=== PATIENT | male | born 1940 | race Caucasian/White ===

== ENCOUNTER → 2017-03-12 | Outpatient (CLI) | payer MEDICARE, OTHER ==
[~2017-03-12] MED LIST: AVOD0.5C PO; DUTA1CAP PO; FLOM5CAP PO; HYDR25TA6 PO; LUTE25CA PO; PRAV20TA2 PO; PRESCAP6 PO
[2017-03-12 15:53] LABS: ANION GAP 8 MEQ/L (8-16); BLOOD UREA NITROGEN 22 MG/DL (7-18); CALCIUM LEVEL 9.8 MG/DL (8.8-10.2); CARBON DIOXIDE LEVEL 28 MEQ/L (21-32); CHLORIDE LEVEL 102 MEQ/L (98-107); CREATININE FOR GFR 1.21 MG/DL (0.70-1.30); GLOMERULAR FILTRATION RATE > 60.0 (>42); GLUCOSE, FASTING 113 MG/DL (83-110); POTASSIUM SERUM 3.9 MEQ/L (3.5-5.1); SODIUM LEVEL 138 MEQ/L (136-145)
--- NOTE | 2017-03-12 19:30 | ECGEPIP ---
Stationary ECG Study [facility] Test Date: 2017-03-12 Pat Name: EVERETT ALDRIDGE Department: Room: - Gender: M Inspector [place]: : 1940 Requested By: Aung Teague Order Number: [id number] Reading MD: Jason Valdez Measurements Intervals Viola Rate: 93 P: -3 TN: 166 QRS: -53 QRSD: 97 T: 29 QT: 323 QTc: 404 Interpretive Statements SINUS RHYTHM INCOMPLETE RIGHT BUNDLE BRANCH BLOCK LEFT ANTERIOR FASCICULAR BLOCK Has developed right ventricular conduction delay and increased R wave in V2 since 11/27/12 Electronically Signed On 03-12-2017 19:30:13 EDT by Jason Valdez
--- NOTE | 2017-04-05 14:22 | REP ---
Chest two views HISTORY: Hypertension Comparison: None The examination is available for review 2:15 p.m. 04/05/2017 Linear densities are present in the left lower lobe consistent with atelectasis or scar. Pleural thickening is present along the right lateral hemithorax. The heart is normal in size. The pulmonary vasculature is normal in appearance. Degenerative change is present in the spine. IMPRESSION: Left lower lobe atelectasis or scar. Signed by Nathan Ruvalcaba MD 04/05/2017 02:15 P
== END ==
LOC: M LAB 15:02
PROVIDERS: ATTEND Ophthalmology
DX: I10 Essential (primary) hypertension (principal)

== ENCOUNTER 2017-04-12 06:50 | Day surgery (SDC) | payer MEDICARE, OTHER ==
--- NOTE | 2017-04-09 13:14 | CR ---
PREOPERATIVE EVALUATION AND CONSULTATION DATE OF CONSULTATION: 03/20/2017 CONSULTING PHYSICIAN: Andrew Davis MD SURGEON: Dr. Jai Chaudhary PLANNED PROCEDURE: Cataract extraction to be done at [facility] on 04/12/2017. CHIEF COMPLAINT: Preoperative evaluation. HISTORY OF PRESENT ILLNESS: This is a very pleasant 76-year-old gentleman who presents today for preoperative evaluation and consultation in the setting of a number of medical issues. Overall, the patient has never had any cardiac issues. He does exert himself over 3 METS on occasion, but is limited by right knee pain. He however does not have any wheezing or any respiratory issues. He denies any chest pain, palpitations or other cardiac issues. He has never had any issues with anesthesia previously. He notes today he feels well overall. He does have some allergy symptoms we discussed. The patient's medical issues all appear to be stable including his blood pressure, lipids, gastroesophageal reflux disease (GERD), benign prostatic hypertrophy (BPH), impaired fasting glucose. He does have some allergies. We discussed some behavioral changes, but none severe. There are no other new issues or concerns. PAST MEDICAL HISTORY: Hypertension. Hyperlipidemia. GERD. BPH. History of squamous cell cancer following with [facility]. Vision changes, follows with Dr. Teague. Fasting glucose intolerance, hemoglobin A1c of 6.0. Allergic rhinitis. Osteoarthritis (OA) of the right knee following with [facility]. Age related hearing loss plus tinnitus, has hearing aids. Chronic intermittent vertigo. PAST SURGICAL HISTORY: [place] [address] [place]. Squamous cell cancer removal from scalp and followup treatments including radiation in 1989 of the left forehead. Also an area on the right leg for squamous cell cancer was noted. Colonoscopy with Dr. Cannon in 2015. MEDICATIONS: - Flomax 0.4 mg two tablets daily - lisinopril 5 mg by mouth daily - hydrochlorothiazide 25 mg by mouth daily - pravastatin 20 mg by mouth daily - omeprazole 20 mg by mouth daily ALLERGIES: No known drug allergies. FAMILY HISTORY: Paternal grandmother at age 93. Paternal grandfather in the flu epidemic of 1819. Maternal grandmother of breast cancer at age 75. Maternal grandfather of an myocardial infarction ([place]) at age 70. He has a sister Delia Diop who has liver problems. Father at age 75 of prostate cancer. Mother of old age. She had Alzheimer's at age 86, macular degeneration. He has no children. SOCIAL HISTORY: The patient lives by himself. He has never been . 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 He has never smoked. He only occasionally drinks any alcohol. He does exercise, but is limited by the osteoarthritis (OA) of his knee. REVIEW OF SYSTEMS: As above, otherwise ROS x 10 is negative. PHYSICAL EXAMINATION: VITAL SIGNS: Blood pressure 118/70, pulse 86, height 5 feet 5 inches, weight 190 pounds. Body mass index (BMI) 31.6, oxygen saturation is 96% on room air. GENERAL: No acute distress. Nontoxic. Alert and oriented times three. Very pleasant. He is quite hard of hearing however. HEENT: Notes pupils are equal, round and reactive to light and accommodation. Extraocular motions intact. No lesions of the lid or conjunctiva. Oral cavity, oropharynx generally benign. Patient has hearing aids in and when removed minimal wax, canal is clear. Tympanic membranes are benign. Oral cavity and oropharynx is benign. NECK: Supple. No lymphadenopathy or thyromegaly. HEART: Regular rate and rhythm. S1 and S2, no murmurs. LUNGS: Clear to auscultation bilaterally. ABDOMEN: Soft, nontender, nondistended. EXTREMITIES: No clubbing, cyanosis, or edema. He does however have an effusion in his right knee. NEUROLOGIC EXAM: Nonfocal with the exception of hearing loss bilaterally. PREOPERATIVE TESTING: Includes a BMP with an elevated blood sugar. Creatinine is 1.21 with a BUN of 22. Electrolytes are normal. GFR considered greater than 60. Chest x-ray showed some atelectasis in the left lower lobe, but no acute findings. An EKG read by Dr. Valdez [facility] notes normal sinus rhythm with incomplete right bundle branch block, some left anterior fascicular block. Apparently, this is a slight change from prior showing a right ventricular conduction delay 11/27/2012. ASSESSMENT/PLAN: 1. Preoperative evaluation and consultation. At this point in time, the patient appears optimized for low risk surgical intervention such as a cataract. He appears to be optimized. He can take all of his medications for the day prior. He has no cardiac, pulmonary or anesthesia issues at this point. Will continue to monitor. 2. Cataract extraction. The patient looks forward to improved vision. 3. Hypertension. Well controlled on present medications. Normal electrolytes. Will continue to monitor. 4. Hyperlipidemia. Doing well on pravastatin and will continue. 5. BPH. Doing well on present dose of Flomax. Will continue. 6. Renal calculi. Patient will stay well hydrated perioperatively. 7. Right knee osteoarthritis (OA). This is significantly limiting the patient' s function. Will continue to follow with orthopedics. 8. Hearing loss. Continues to be significant. 9. Macular degeneration. Patient will continue to follow with Dr. Teague. 10. Malignant neoplasm of the skin. Patient had squamous cell cancer on the scalp and lower leg and will follow with [facility]par[facility]. 11. Ongoing care. Again, patient is optimized for surgical intervention at this point. He is going to continue to followup as scheduled. If there are new issues or concerns sooner he will let us know. ABDOULAYE
[~2017-04-12] VITALS: Ht 162.6 cm; Wt 81.6 kg
[~2017-04-12 06:50] MED LIST changes: +ACETYLCHOLINE OPHTH SOLN 1% 2ML (MIOCHOL-E) As Ordered ONE; +BALANCED SALT IRRIGATION SOLUTION 500ML BAG (FOR OR EYE MACHINE) As Ordered ONE; +CEFUROXIME 1MG/0.1ML INTRACAMERAL INJ As Ordered ONE; +DUOVISC (0.50ML VISCOAT/0.55ML PROVISC) OPHTH KIT As Ordered ONE; +LIDOCAINE 0.75%/EPINEPHRINE 0.025% IN BSS 1ML SYR INTRACAMERAL (OR ONLY) As Ordered ONE; +LIDOCAINE 4% INJ 5 ML AMP As Ordered ONE; +POVIDONE-IODINE 5% OPHTH PREP SOL 30ML As Ordered ONE
[2017-04-12] MEDS ORDERED: TROPICAMIDE 1% OPHTH SOLN 2ML XX ONE (07:00)
[2017-04-12] MEDS ORDERED: PROPARACAINE 0.5% OPHTH SOL 15ML XX ONE (07:00)
[2017-04-12] MEDS ORDERED: PHENYLEPHRINE 2.5% OPHTH SOL 2ML XX ONE (07:00)
[2017-04-12] MEDS ORDERED: OFLOXACIN 0.3 % (OCUFLOX) OPTH SOL 5ML XX ONE (07:00)
[2017-04-12] MEDS ORDERED: LR 1,000 ML IV SCH (07:00)
[2017-04-12] MEDS ORDERED: MIDAZOLAM INJ 2 MG/2 ML VIAL (J2250) As Ordered ONE (07:47)
[2017-04-12] MEDS ORDERED: fentaNYL 100 MCG/2 ML INJECTION (J3010) As Ordered ONE ×2 (07:47→07:48)
[2017-04-12 09:00] VITALS: BP 101/50
--- NOTE | 2017-04-15 08:43 | RO ---
DATE OF PROCEDURE: 04/12/2017 PREOPERATIVE DIAGNOSIS: Visually significant nuclear sclerotic cataract left eye. POSTOPERATIVE DIAGNOSIS: Visually significant nuclear sclerotic cataract left eye. PROCEDURE: Cataract extraction with use of phacoemulsification, and placement of intraocular lens, AU00T0, 20.5 D , left eye. SURGEON: Jai Chaudhary DO DRY STARCH OPERATOR: ANESTHESIA: Local with monitored anesthesia care (MAC). COMPLICATIONS: None. POSTOPERATIVE CONDITION: Stable. INDICATION FOR SURGERY: Blurred vision left eye affecting patient's activities of daily living. DESCRIPTION OF PROCEDURE: The patient was seen in the preoperative area and properly identified. The correct operative eye was identified and marked. Attention was turned to that eye. The patient received topical antibiotics in the preoperative area. The patient then received topical dilating drops consisting of Tropicamide and Phenylephrine. The patient was then transferred to the operating room. The correct side was re-identified. The patient received topical anesthetics and antibiotics on the surface of the eye. The eye was prepped and draped in a sterile fashion. The upper and lower eyelids were isolated with Tegaderm tape, and the lids were held open with an adjustable speculum. Using a sideport blade, a paracentesis incision was made. Intraocular preservative-free lidocaine was then injected into the anterior chamber. Viscoelastic was then injected into the anterior chamber through the paracentesis. Using a 2.6 mm sharp-tipped keratome, the anterior chamber was entered via a temporal clear corneal incision. A continuous curvilinear capsulorrhexis was created with the aid of a 26g cystotome and utrata forceps. Hydrodissection was performed with balanced salt solution (BSS) on a blunt cannula until the nucleus was freely mobile. The crystalline lens was phacoemulsified and aspirated. Additional cohesive viscoelastic was placed into the capsular bag to deepen it. An AU00T0, 20.5 D lens was placed into the capsular bag and confirmed by visualizing the continuous curvilinear capsulorrhexis. Additional irrigation and aspiration was used to remove cortical material and remaining viscoelastic. The clear corneal incision was hydrated with BSS on a blunt cannula. The lens was well positioned. The incisions were then tested for leaks and found to be negative. The eye was then palpated for appropriate pressure and adjusted accordingly with BSS. The eyelid speculum was carefully removed. A shield was placed over the eye. The patient tolerated the procedure well and was discharged to the recovery unit in a stable condition. ABDOULAYE
== END 2017-04-12 09:30 | disposition home or self-care (01) ==
LOC: M SDC 06:50
PROVIDERS: ATTEND Ophthalmology
DX: H25.12 Age-related nuclear cataract, left eye (principal); I10 Essential (primary) hypertension; E78.5 Hyperlipidemia, unspecified; Z92.3 Personal history of irradiation; Z85.828 Personal history of other malignant neoplasm of skin
CPT/HCPCS: 66984; J2250; J3010; V2632

== ENCOUNTER → 2017-04-26 | Day surgery (SDC) | payer MEDICARE, OTHER ==
[~2017-04-26] VITALS: Ht 162.6 cm; Wt 81.6 kg
[~2017-04-26] MED LIST changes: +HEALON DUET (HEALON 10MG/ML 0.55ML & HEALON ENDOCOAT 30MG/ML 0.85ML) As Ordered ONE; -LIDOCAINE 4% INJ 5 ML AMP As Ordered ONE; +LR 1,000 ML IV ONE; +MIDAZOLAM INJ 2 MG/2 ML VIAL (J2250) As Ordered ONE; +OFLOXACIN 0.3 % (OCUFLOX) OPTH SOL 5ML XX ONE; +PHENYLEPHRINE 2.5% OPHTH SOL 2ML XX ONE; +PROPARACAINE 0.5% OPHTH SOL 15ML XX ONE; +TROPICAMIDE 1% OPHTH SOLN 2ML XX ONE; +fentaNYL 100 MCG/2 ML INJECTION (J3010) As Ordered ONE
[2017-04-26 10:27] VITALS: BP 115/63
--- NOTE | 2017-04-27 15:27 | RO ---
DATE OF PROCEDURE: 04/26/2017 PREOPERATIVE DIAGNOSIS: Visually significant nuclear sclerotic cataract right eye. POSTOPERATIVE DIAGNOSIS: Visually significant nuclear sclerotic cataract right eye. PROCEDURE: Cataract extraction with use of phacoemulsification, and placement of intraocular lens, AU00T0, 21.0 D, right eye. SURGEON: Jai Chaudhary DO EXECUTIVE SERVICES ADMINISTRATOR: ANESTHESIA: Local with monitored anesthesia care (MAC). COMPLICATIONS: None. POSTOPERATIVE CONDITION: Stable. INDICATION FOR SURGERY: Blurred vision right eye affecting patient's activities of daily living. DESCRIPTION OF PROCEDURE: The patient was seen in the preoperative area and properly identified. The correct operative eye was identified and marked. Attention was turned to that eye. The patient received topical antibiotics in the preoperative area. The patient then received topical dilating drops consisting of Tropicamide and Phenylephrine. The patient was then transferred to the operating room. The correct side was re-identified. The patient received topical anesthetics and antibiotics on the surface of the eye. The eye was prepped and draped in a sterile fashion. The upper and lower eyelids were isolated with Tegaderm tape, and the lids were held open with an adjustable speculum. Using a sideport blade, a paracentesis incision was made. Intraocular preservative-free lidocaine was then injected into the anterior chamber. Viscoelastic was then injected into the anterior chamber through the paracentesis. Using a 2.6 mm sharp-tipped keratome, the anterior chamber was entered via a temporal clear corneal incision. A continuous curvilinear capsulorrhexis was created with the aid of a 26g cystotome and utrata forceps. Hydrodissection was performed with balanced salt solution (BSS) on a blunt cannula until the nucleus was freely mobile. The crystalline lens was phacoemulsified and aspirated. Additional cohesive viscoelastic was placed into the capsular bag to deepen it. An AU00T0, 21.0 D was placed into the capsular bag and confirmed by visualizing the continuous curvilinear capsulorrhexis. Additional irrigation and aspiration was used to remove cortical material and remaining viscoelastic. The clear corneal incision was hydrated with BSS on a blunt cannula. The lens was well positioned. The incisions were then tested for leaks and found to be negative. The eye was then palpated for appropriate pressure and adjusted accordingly with BSS. The eyelid speculum was carefully removed. A shield was placed over the eye. The patient tolerated the procedure well and was discharged to the recovery unit in a stable condition. ABDOULAYE
== END | disposition home or self-care (01) ==
LOC: M SDC 09:43
PROVIDERS: ATTEND Ophthalmology
DX: H25.11 Age-related nuclear cataract, right eye (principal); I10 Essential (primary) hypertension; E78.5 Hyperlipidemia, unspecified; Z85.828 Personal history of other malignant neoplasm of skin; Z79.899 Other long term (current) drug therapy
CPT/HCPCS: 66984; J2250; J3010; V2632

== ENCOUNTER → 2019-07-22 | Outpatient (REF) | payer MEDICARE, OTHER ==
[~2019-07-22] MED LIST changes: -ACETYLCHOLINE OPHTH SOLN 1% 2ML (MIOCHOL-E) As Ordered ONE; +ASPI81TA26 PO; -BALANCED SALT IRRIGATION SOLUTION 500ML BAG (FOR OR EYE MACHINE) As Ordered ONE; +CBD OIL PO; -CEFUROXIME 1MG/0.1ML INTRACAMERAL INJ As Ordered ONE; -DUOVISC (0.50ML VISCOAT/0.55ML PROVISC) OPHTH KIT As Ordered ONE; +FLOM0.4C39 PO; -FLOM5CAP PO; -HEALON DUET (HEALON 10MG/ML 0.55ML & HEALON ENDOCOAT 30MG/ML 0.85ML) As Ordered ONE; +HYDR25TAB PO; -LIDOCAINE 0.75%/EPINEPHRINE 0.025% IN BSS 1ML SYR INTRACAMERAL (OR ONLY) As Ordered ONE; +LOSA25TA14 PO; -LR 1,000 ML IV ONE; -MIDAZOLAM INJ 2 MG/2 ML VIAL (J2250) As Ordered ONE; +OCUVTAB PO; -OFLOXACIN 0.3 % (OCUFLOX) OPTH SOL 5ML XX ONE; -PHENYLEPHRINE 2.5% OPHTH SOL 2ML XX ONE; -POVIDONE-IODINE 5% OPHTH PREP SOL 30ML As Ordered ONE; -PROPARACAINE 0.5% OPHTH SOL 15ML XX ONE; -TROPICAMIDE 1% OPHTH SOLN 2ML XX ONE; -fentaNYL 100 MCG/2 ML INJECTION (J3010) As Ordered ONE
== END ==
LOC: M LAB REF 17:27
PROVIDERS: ATTEND Family Medicine
DX: H50.05 Alternating esotropia (principal)

== ENCOUNTER 2021-06-14 09:44 | Emergency (ER) | payer MEDICARE, OTHER ==
[~2021-06-14] VITALS: Ht 167.6 cm; Wt 85.1 kg
[~2021-06-14 09:44] MED LIST changes: -DUTA1CAP PO; +DUTA1CAP2 PO; +HYDR-3490 PO; -HYDR25TAB PO
--- OUTSIDE RECORDS SUMMARY | 2021-06-14 12:04 | CCD | Continuity of Care Document ---
Author Author Lab Schedule, Albert Savage Organization Unknown Address [address] [place] [address] Phone Unavailable Care Team Providers Care Dining Room Helper Name Role Phone Andrew Davis MD AUTM [phone] Aung Teague MD AUTM [phone] Baltazar Cannon MD AUTM [phone] Problems Active Problems Provider Date Essential hypertension Andrew Davis M.D. Onset: 7 Hyperlipidemia Andrew Davis M.D. Onset: 09/13/2016 Gastroesophageal reflux disease Andrew Davis M.D. Onset: 09/13/2016 Social History Type Date Description Comments Sex Unknown ETOH Use Denies alcohol use Tobacco Use Start: Unknown Patient has never smoked Allergies, Adverse Reactions, Alerts Description No Known Drug Allergies Medications Active Medications SIG Qnty Indications Ordering Provide r Date Tamsulosin HCL 0.4mg Capsules Take one Capsules By Mouth Every Day 60caps Jennie Smith DO 03/2020 Aspir-[address] 1 by mouth every day Andrew Davis M.D. 07/02/2018 Ocuvite Extra Tablets 1 by mouth every day 30tabs Andrew Davis M.D. 07/02/2018 Icaps Areds Formula Tablets 2 qdpo Andrew Davis M.D. 07/02/2018 Losartan Potassium 25mg Tablets 1 by mouth every day 90tabs I10 Andrew Davis M.D. 07/09/2017 Hydrochlorothiazide 25mg Tablets 1 by mouth every day 90tabs Andrew Davis M.D. 09/13/2016 Pravastatin Sodium 20mg Tablets 1 by mouth every day 90tabs Pelon William MD 09/13/2016 Dutasteride 0.5mg Capsules 1 daily 90caps Andrew Davis M.D. 09/13/2016 Medications Administered in Office Medication SIG Qnty Indications Ordering Provider Date Covid-19 vaccine, Unspecified Inj ection Unknown 10/06/2020 Covid-19 vaccine, Unspecified Inj ection Unknown 09/08/2020 Immunization Adminstration,1 Vaccine/Tox oid Injection Andrew Davis M.D. 019 Immunizations CPT Code Status Date Vaccine Lot # U-Flu Given 04/28/2020 Influenza,Unspecified 01258 Given 08/12/2019 Shingrix Zoster Vaccine (HZV), Recombinant, Subunit, Adjuvanted 62114 Given 07/22/2019 Adacel- Tetanus Diphtheria P ertussis [id number] 25239 Given 06/13/2019 Shingrix Zoster Vaccine (HZV), Recombinant, Subunit, Adjuvanted U-Flu Given 05/13/2019 Influenza,Unspecified U-Pneum Given 05/29/2018 Pneumococcal,Unspecified U-Flu Given 05/29/2018 Influenza,Unspecified 65242 Given 05/14/2015 Prevnar 13 33029 Given 06/17/2013 Pneumovax 23 00468 Refused 07/09/2017 Influenza Vaccin e Quadrivalent Preser/Antibiotic Free Im Use Vital Signs Date Vital Result Comment 05/04/2021 11:41am BP Systolic 110 mmHg BP Diastolic 70 mmHg Heart Rate 84 /min Height 65 inches 5'5" Weight 183.00 lb O2 % BldC Oximetry 96 % BMI (Body Mass Index) 30.4 kg/m2 12/27/2020 12:53pm BP Systolic 100 mmHg BP Diastolic 55 mmHg Heart Rate 101 /min Height 65 inches 5'5" Weight 189.38 lb O2 % BldC Oximetry 93 % RM Air BMI (Body Mass Index) 31.5 kg/m2 Results Test Acquired Date Facility Test Result H/L Range Note Complete Blood Count 05/04/2021 [facility] Automotive Service Director: [place] [address] [phone] WBC 7.8 x10*3/UL 4.1 - 10.9 RBC 5.42 x10*6/UL 4.20 - 6.30 Hemoglobin 16.5 g/dL 12.0 - 18.0 Hematocrit 48.1 % 37.0 - 51.0 MCV 88.8 fL 80.0 - 97.0 MCH 30.4 pg 26.0 - 32.0 MCHC 34.2 g/dL 31.0 - 38.0 RDW 13.4 % 11.6 - 13.7 PLT 191 x10*3/UL 140 - 440 MPV 8.4 FL 7.8 - 11.0 Lymph % 22.4 % 10.0 - 58.5 Mid % 5.8 % 1.7 - 9.3 Neut % 71.8 % 37.0 - 92.0 Lymph # 1.7 x10*3/UL 0.6 - 4.1 Mid # 0.5 x10*3/UL 0.1 - 0.6 Neut # 5.6 x10*3/UL 2.0 - 7.8 A1c 05/03/2021 [facility] , Automotive Service Director: Dr Pelon William [place], [place] [id number] [phone] Hba1c 6.9 % High <5.7 1 Est Avg Glucose 151 mg/dL High 60 - 110 Comprehensive Chem Profile 05/03/2021 [facility], Automotive Service Director: [place] [address] [phone] Glucose 173 mg/dL High 74 - 99 2 BUN 21 mg/dL High 7 - 18 Creatinine 1.2 mg/dL 0.6 - 1.3 Sodium 141 mEq/L 136 - 145 Potassium 3.7 mEq/L 3.5 - 5.1 Chloride 103 mEq/L 98 - 107 Carbon Dioxide 29 mEq/L 21 - 32 Calcium 9.2 mg/dL 8.5 - 10.1 Alk. Phosphatase 58 mg/dL 46 - 116 Total Bilirubin 1.2 mg/dL High 0.2 - 1.0 Ast (Sgot) 13 U/L Low 15 - 37 Alt (SGPT) 27 U/L 12 - 78 Albumin 3.9 g/dL 3.4 - 5.0 Total Protein 7.4 g/dL 6.4 - 8.2 A/G Ratio 1.11 CALC 1.00 - 1.90 GFR 58 mL/min Low >60 GFR >= 60 mL/min >60 3 Laboratory test finding 05/03/2021 [facility] adriana Automotive Service Director: [place] [address] [phone] Thyroid Stimulating Hormone 3.14 uIU/mL 0.3 6 - 3.74 T4 Free 0.93 ng/dL 0.76 - 1.46 Laboratory test finding 05/03/2021 [facility] edith wright Automotive Service Director: [place] [address] [phone] PSA 0.41 ng/mL <4.00 4 Comprehensive Chem Profile 12/22/2020 [facility] Automotive Service Director: [place] [address] [phone] Glucose 131 mg/dL High 74 - 99 5 BUN 24 mg/dL High 7 - 18 Creatinine 1.1 mg/dL 0.6 - 1.3 Sodium 140 mEq/L 136 - 145 Potassium 3.8 mEq/L 3.5 - 5.1 Chloride 103 mEq/L 98 - 107 Carbon Dioxide 28 mEq/L 21 - 32 Calcium 9.2 mg/dL 8.5 - 10.1 Alk. Phosphatase 55 mg/dL 46 - 116 Total Bilirubin 1.2 mg/dL High 0.2 - 1.0 Ast (Sgot) 16 U/L 15 - 37 Alt (SGPT) 28 U/L 12 - 78 Albumin 4.4 g/dL 3.4 - 5.0 Total Protein 7.9 g/dL 6.4 - 8.2 A/G Ratio 1.26 CALC 1.00 - 1.90 GFR >= 60 mL/min >60 GFR >= 60 mL/min >60 6 Lipid Profile 12/22/2020 [facility] , Automotive Service Director: [place] [address] [phone] Cholesterol 154 mg/dL 131 - 200 Triglycerides 143 mg/dL 30 - 150 HDL Cholesterol 47 mg/dL 35 - 60 LDL (Calculated) 78 CALC 50 - 159 A1c 12/22/2020 [facility] , Automotive Service Director: [place] [address] [phone] Hba1c 7.0 % High <5.7 7 Est Avg Glucose 154 mg/dL High 60 - 110 Laboratory test finding 12/22/2020 [facility] edith wright Automotive Service Director: [place] [address] [phone] Thyroid Stimulating Hormone 3.59 uIU/mL 0.3 6 - 3.74 1 Lab Result Notes: Pre-Diabetes 5.7 - 6.4 % Diabetes = or > 6.5% 2 100-125 mg/dL PRE-DIABET ES/FASTING >126 mg/dL DIABETES/FASTING 3 CHRONIC KIDNEY DISEASE STAGI NG PER NKF STAGE I & II GFR >= 60 NORMAL TO MILDLY DECREASED STAGE III GFR 30-59 MODERATELY DECREASED STAGE IV GFR 15-29 SEVERELY DECREASED STAGE V GFR <15 VERY LITTLE GFR LEFT ESRD GFR <15 ON CLEANING CUSTODIAN 4 This assay was performed on the Sunlot EXL using the B- Galactosidase/CPRG methodology and should not be compared interchangeably with other methods. The PSA should not be used alone as a screening test for the presence or absence of malignant disease. 5 100-125 mg/dL PRE-DIABET ES/FASTING >126 mg/dL DIABETES/FASTING 6 CHRONIC KIDNEY DISEASE STAGI NG PER NKF STAGE I & II GFR >= 60 NORMAL TO MILDLY DECREASED STAGE III GFR 30-59 MODERATELY DECREASED STAGE IV GFR 15-29 SEVERELY DECREASED STAGE V GFR <15 VERY LITTLE GFR LEFT ESRD GFR <15 ON CLEANING CUSTODIAN 7 Lab Result Notes: Pre-Diabetes 5.7 - 6.4 % Diabetes = or > 6.5% Procedures Date Code Description Status 04/18/2021 [id number] Diabetic Retinal Eye Exam Comple manuel 12/27/2020 87400 Office/Outpatient Established Mo d MDM 30-39 Min Completed 10/18/2020 [id number] Diabetic Retinal Eye Exam Comple manuel 02/09/2020 [id number] Diabetic Retinal Eye Exam Comple manuel 06/30/2019 823952072 Diabetic Retinal Eye Exam Comple manuel 12/30/2018 888502204 Diabetic Retinal Eye Exam Comple manuel 08/23/2018 62493753 Colonoscopy Completed 06/10/2018 499996931 Diabetic Retinal Eye Exam Comple manuel 04/16/2017 [id number] Diabetic Retinal Eye Exam Comple manuel 04/11/2017 923985862 Diabetic Retinal Eye Exam Comple manuel 04/09/2017 852259690 Diabetic Retinal Eye Exam Comple manuel 03/23/2017 210360709 Diabetic Retinal Eye Exam Comple [facility] 10/27/2014 87510252 Colonoscopy Completed Medical Devices Description No Information Available Encounters Type Date Location Provider Dx Diagnosis Office Visit 12/27/2020 1:30p [facility] Andrew Davis M.D. E78.5 Hyperlipidemia, unspecified E11.9 Type 2 diabetes mellitus wit hout complications E07.9 Disorder of thyroid, unspeci fied N40.0 Benign prostatic hyperplasia without lower urinry tract symp H91.93 Unspecified hearing loss, bi lateral J30.9 Allergic rhinitis, unspecifi ed H35.30 Unspecified macular degenera tion R42 Dizziness and giddiness I10 Essential (primary) hyperten erin Z85.828 Personal history of other ma lignant neoplasm of skin Z86.010 Personal history of colonic polyps Z13.89 Encounter for screening for other disorder Assessments Date Code Description Provider 05/04/2021 R42 Dizziness and giddiness Andrew Davis M.D. 05/04/2021 E11.9 Type 2 diabetes mellitus without complications Andrew Davis M.D. 05/04/2021 E07.9 Disorder of thyroid, unspecified Andrew Davis M.D. 05/04/2021 N40.0 Benign prostatic hyp erplasia without lower urinary tract symptoms Andrew Davis M.D. 05/04/2021 E78.5 Hyperlipidemia, unspecified Gisela Davis M.D. 05/04/2021 H91.93 Unspecified hearing loss, bilate ral Andrew Davis M.D. 05/04/2021 J30.9 Allergic rhinitis, unspecified J abhijeet Davis M.D. 05/04/2021 H35.30 Unspecified macular degeneration Andrew Davis M.D. 05/04/2021 Z87.442 Personal history of urinary calc vikki Andrew Davis M.D. 05/04/2021 M17.11 Unilateral primary osteoarthriti s, right knee Andrew Davis M.D. 05/03/2021 E11.9 Type 2 diabetes mellitus without complications Andrew Davis M.D. 05/03/2021 E11.9 Type 2 diabetes mellitus without complications Lab Schedule 05/03/2021 Z12.5 Encounter for screening for davina gnant neoplasm of prostate Andrew Davis M.D. 05/03/2021 Z12.5 Encounter for screening for davina gnant neoplasm of prostate Lab Schedule 05/03/2021 E07.9 Disorder of thyroid, unspecified Andrew Davis M.D. 05/03/2021 E07.9 Disorder of thyroid, unspecified Lab Schedule 05/03/2021 R42 Dizziness and giddiness Andrew Davis M.D. 05/03/2021 R42 Dizziness and giddiness Lab [place] 12/27/2020 E78.5 Hyperlipidemia, unspecified Gisela Davis M.D. 12/27/2020 E11.9 Type 2 diabetes mellitus without complications Andrew Davis M.D. 12/27/2020 E07.9 Disorder of thyroid, unspecified Andrew Davis M.D. 12/27/2020 N40.0 Benign prostatic hyp erplasia without lower urinary tract symptoms Andrew Davis M.D. 12/27/2020 H91.93 Unspecified hearing loss, bilate ral Andrew Davis M.D. 12/27/2020 J30.9 Allergic rhinitis, unspecified J abhijeet Davis M.D. 12/27/2020 H35.30 Unspecified macular degeneration Andrew Davis M.D. 12/27/2020 R42 Dizziness and giddiness Andrew Davis M.D. 12/27/2020 I10 Essential (primary) hypertension Andrew Davis M.D. 12/27/2020 Z85.828 Personal history of other malign ant neoplasm of skin Andrew Davis M.D. 12/27/2020 Z86.010 Personal history of colonic poly ps Andrew Davis M.D. 12/27/2020 Z13.89 Encounter for screening for othe r disorder Andrew Davis M.D. 12/22/2020 E11.9 Type 2 diabetes mellitus without complications Andrew Davis M.D. 12/22/2020 E11.9 Type 2 diabetes mellitus without complications Lab Schedule 12/22/2020 E78.5 Hyperlipidemia, unspecified Gisela Davis M.D. 12/22/2020 E78.5 Hyperlipidemia, unspecified Lab Schedule 12/22/2020 E07.9 Disorder of thyroid, unspecified Andrew Davis M.D. 12/22/2020 E07.9 Disorder of thyroid, unspecified Lab Schedule Plan of Treatment Future Appointment(s):* 06/16/2021 11:30 am - [facility] 05/04/2021 - Andrew Davis M.D.* R42 Dizziness and giddiness * E11.9 Type 2 diabetes mellitus without complications * E07.9 Disorder of thyroid, unspecified * N40.0 Benign prostatic hyperplasia without lower urinry tract symp * E78.5 Hyperlipidemia, unspecified * H91.93 Unspecified hearing loss, bilateral * J30.9 Allergic rhinitis, unspecified * H35.30 Unspecified macular degeneration * Z87.442 Personal history of urinary calculi * M17.11 Unilateral primary osteoarthritis, right knee * * Comments:* 6 weeks with CBC today but other labs TBD. Functional Status Description No Information Available Mental Status Description No Information Available Referrals Description No Information Available
--- OUTSIDE RECORDS SUMMARY | 2021-06-14 12:04 | CCD | Continuity of Care Document ---
Author Author Albert DAVIS M.D. Organization Unknown Address [address] [address] Phone [phone] Care Team Providers Care Control Board Operator Name Role Phone Andrew Davis MD AUTM [phone] Aung Teague MD AUTM [phone] Baltazar Cnanon MD AUTM [phone] Problems Active Problems Provider Date Essential hypertension [...] Vaccine Lot # U-Flu Given 04/28/2020 Influenza,Unspecified 90762 Given 08/12/2019 Shingrix Zoster Vaccine (HZV), Recombinant, Subunit, Adjuvanted 06622 Given 07/22/2019 Adacel- Tetanus Diphtheria P ertussis [id number] 68571 Given 06/13/2019 Shingrix Zoster Vaccine (HZV), Recombinant, Subunit, Adjuvanted U-Flu Given 05/13/2019 Influenza,Unspecified U-Pneum Given 05/29/2018 Pneumococcal,Unspecified U-Flu Given 05/29/2018 Influenza,Unspecified 79115 Given 05/14/2015 Prevnar 13 58332 Given 06/17/2013 Pneumovax 23 19872 Refused 07/09/2017 Influenza Vaccin e Quadrivalent Preser/Antibiotic [...] H/L Range Note Complete Blood Count 05/04/2021 [facility] edith earl Global Project Manager: Dr Pelon William [place], [place] [id number] [phone] WBC 7.8 x10*3/UL 4.1 - 10.9 RBC [...] 5.6 x10*3/UL 2.0 - 7.8 A1c 05/03/2021 [facility] , Global Project Manager: Dr Pelon William [place], [place] [address] [phone] Hba1c 6.9 % High <5.7 1 Est Avg Glucose 151 mg/dL High 60 - 110 Comprehensive Chem Profile 05/03/2021 [facility], Global Project Manager: Dr Pelon William [place], [place] [id number] [phone] Glucose 173 mg/dL High 74 - 99 [...] mL/min >60 3 Laboratory test finding 05/03/2021 [facility] adriana Global Project Manager: Dr Pelon [place] [id number] [phone] Thyroid Stimulating Hormone 3.14 uIU/mL 0.3 6 - 3.74 T4 Free 0.93 ng/dL 0.76 - 1.46 Laboratory test finding 05/03/2021 [facility] adriana Global Project Manager: Dr Pelon William [place] [id number] [phone] PSA 0.41 ng/mL <4.00 4 Comprehensive Chem Profile 12/22/2020 [facility] kwon Global Project Manager: [place] [address] [phone] Glucose 131 mg/dL High 74 - 99 [...] 60 mL/min >60 6 Lipid Profile 12/22/2020 [facility] , Global Project Manager: [place] [id number] [phone] Cholesterol 154 mg/dL 131 - 200 Triglycerides 143 mg/dL 30 - 150 HDL Cholesterol 47 mg/dL 35 - 60 LDL (Calculated) 78 CALC 50 - 159 A1c 12/22/2020 [facility] , Global Project Manager: [place] [address] [phone] Hba1c 7.0 % High <5.7 7 Est Avg Glucose 154 mg/dL High 60 - 110 Laboratory test finding 12/22/2020 [facility] edith wright Global Project Manager: [place] [address] [phone] Thyroid Stimulating Hormone 3.59 uIU/mL 0.3 6 [...] LITTLE GFR LEFT ESRD GFR <15 ON FRONT MAKER 4 This assay was performed on the Siemens Dimension EXL using the B- Galactosidase/CPRG methodology and [...] LITTLE GFR LEFT ESRD GFR <15 ON FRONT MAKER 7 Lab Result Notes: Pre-Diabetes 5.7 - 6.4 % Diabetes = or > 6.5% Procedures Date Code Description Status 04/18/2021 [id number] Diabetic Retinal Eye Exam Comple manuel 12/27/2020 51024 Office/Outpatient Established Mo d MDM 30-39 Min Completed 10/18/2020 589742789 Diabetic Retinal Eye Exam Comple manuel 02/09/2020 562838925 Diabetic Retinal Eye Exam Comple manuel 06/30/2019 884394345 Diabetic Retinal Eye Exam Comple manuel 12/30/2018 564892201 Diabetic Retinal Eye Exam Comple [facility] 08/23/2018 87954253 Colonoscopy Completed 06/10/2018 431666000 Diabetic Retinal Eye Exam Comple manuel 04/16/2017 077134022 Diabetic Retinal Eye Exam Comple manuel 04/11/2017 643556184 Diabetic Retinal Eye Exam Comple manuel 04/09/2017 981858294 Diabetic Retinal Eye Exam Comple manuel 03/23/2017 465892868 Diabetic Retinal Eye Exam Comple [facility] 10/27/2014 51157950 Colonoscopy Completed Medical Devices Description No Information Available Encounters Type Date Location Provider Dx Diagnosis Office Visit 12/27/2020 1:30p [facility] Andrew Davis M.D. E78.5 Hyperlipidemia, [...] Davis M.D. 12/27/2020 J30.9 Allergic rhinitis, unspecified Avi Davis M.D. 12/27/2020 H35.30 Unspecified macular degeneration [...] 11:30 am - [facility] 05/04/2021 - Andrew Davis M.D.* R42 [...]
--- OUTSIDE RECORDS SUMMARY | 2021-06-14 12:04 | CCD | Continuity of Care Document ---
Author Author Lab Schedule, Albert Savage Organization Unknown Address [address] [place] [address] Phone Unavailable Care Team Providers Care Nautical Instrument Mechanic Name Role Phone Andrew Davis MD AUTM [phone] Aung Teague MD AUTM [phone] Baltazar Cannon MD AUTM [phone] Problems Active Problems Provider Date Essential hypertension [...] Vaccine Lot # U-Flu Given 04/28/2020 Influenza,Unspecified 15944 Given 08/12/2019 Shingrix Zoster Vaccine (HZV), Recombinant, Subunit, Adjuvanted 51629 Given 07/22/2019 Adacel- Tetanus Diphtheria P ertussis (Age64 & Under) [id number] 03936 Given 06/13/2019 Shingrix Zoster Vaccine (HZV), Recombinant, Subunit, Adjuvanted U-Flu Given 05/13/2019 Influenza,Unspecified U-Pneum Given 05/29/2018 Pneumococcal,Unspecified U-Flu Given 05/29/2018 Influenza,Unspecified 21476 Given 05/14/2015 Prevnar 13 76166 Given 06/17/2013 Pneumovax 23 16256 Refused 07/09/2017 Influenza Vaccin e Quadrivalent Preser/Antibiotic Free Im Use Vital Signs Date Vital Result Comment 05/04/2021 11:41am BP Systolic 110 mmHg BP Diastolic 70 mmHg Heart Rate 84 /min Height 65 inches 5'5" Weight 183.00 lb BMI (Body Mass Index) 30.4 kg/m2 12/27/2020 12:53pm BP Systolic 100 mmHg BP Diastolic 55 mmHg Heart Rate 101 /min Height 65 inches 5'5" Weight 189.38 lb O2 % BldC Oximetry 93 % RM Air BMI (Body Mass Index) 31.5 kg/m2 Results Test Acquired Date Facility Test Result H/L Range Note A1c 05/03/2021 [facility] Nail Mill Worker: Dr Pelon William [place], [place] [id number] [phone] Hba1c 6.9 % High <5.7 1 Est Avg Glucose 151 mg/dL High 60 - 110 Comprehensive Chem Profile 05/03/2021 [facility] Nail Mill Worker: [place] [address] [phone] Glucose 173 mg/dL High 74 - 99 [...] mL/min >60 3 Laboratory test finding 05/03/2021 [facility] adriana Nail Mill Worker: [place] [address] [phone] Thyroid Stimulating Hormone 3.14 uIU/mL 0.3 6 - 3.74 T4 Free 0.93 ng/dL 0.76 - 1.46 Laboratory test finding 05/03/2021 [facility] adriana Nail Mill Worker: [place] [address] [phone] PSA 0.41 ng/mL <4.00 4 Comprehensive Chem Profile 12/22/2020 [facility], Nail Mill Worker: [place] [address] [phone] Glucose 131 mg/dL High 74 - 99 [...] 60 mL/min >60 6 Lipid Profile 12/22/2020 [facility] , Nail Mill Worker: Dr Pelon William [place], [place] [id number] [phone] Cholesterol 154 mg/dL 131 - 200 Triglycerides 143 mg/dL 30 - 150 HDL Cholesterol 47 mg/dL 35 - 60 LDL (Calculated) 78 CALC 50 - 159 A1c 12/22/2020 [facility] Nail Mill Worker: [place] [address] [phone] Hba1c 7.0 % High <5.7 7 Est Avg Glucose 154 mg/dL High 60 - 110 Laboratory test finding 12/22/2020 [facility], Nail Mill Worker: [place] [address] [phone] Thyroid Stimulating Hormone 3.59 uIU/mL 0.3 6 [...] LITTLE GFR LEFT ESRD GFR <15 ON ALL TERRAIN VEHICLE RACER 4 This assay was performed on the Siemens Flutter EXL using the B- Galactosidase/CPRG methodology and [...] LITTLE GFR LEFT ESRD GFR <15 ON ALL TERRAIN VEHICLE RACER 7 Lab Result Notes: Pre-Diabetes 5.7 - 6.4 % Diabetes = or > 6.5% Procedures Date Code Description Status 04/18/2021 [id number] Diabetic Retinal Eye Exam Comple manuel 12/27/2020 54471 Office/Outpatient Established Mo d MDM 30-39 Min Completed 10/18/2020 151839971 Diabetic Retinal Eye Exam Comple manuel 02/09/2020 723330977 Diabetic Retinal Eye Exam Comple manuel 06/30/2019 676397925 Diabetic Retinal Eye Exam Comple manuel 12/30/2018 585175603 Diabetic Retinal Eye Exam Comple manuel 08/23/2018 16329024 Colonoscopy Completed 06/10/2018 888585657 Diabetic Retinal Eye Exam Comple manuel 04/16/2017 081928841 Diabetic Retinal Eye Exam Comple manuel 04/11/2017 538838356 Diabetic Retinal Eye Exam Comple manuel 04/09/2017 802728548 Diabetic Retinal Eye Exam Comple manuel 03/23/2017 400476190 Diabetic Retinal Eye Exam Comple manuel 10/27/2014 96268560 Colonoscopy Completed Medical Devices Description No Information Available Encounters Type Date Location Provider Dx Diagnosis Office Visit 12/27/2020 1:30p [facility] Andrew Davis M.D. E78.5 Hyperlipidemia, [...] other disorder Assessments Date Code Description Provider 12/27/2020 E78.5 Hyperlipidemia, unspecified Gisela Davis M.D. [...] thyroid, unspecified Lab Schedule Plan of Treatment No Information Available Functional Status Description No Information Available Mental Status Description No Information Available Referrals Description No Information Available
--- OUTSIDE RECORDS SUMMARY | 2021-06-14 12:04 | CCD | Continuity of Care Document ---
Author Author Albert DAVIS M.D. Organization Unknown Address [address] [address] Phone [phone] Care Team Providers Care Executive Coach Name Role Phone Andrew Davis MD AUTM [phone] Aung Teague MD AUTM [phone] Baltazar Cannon MD AUTM [phone] Problems Active Problems Provider Date Essential hypertension [...] r Date Tamsulosin HCL 0.4mg Capsules Take Two Capsules By Mouth Every Day 60caps Jennie [...] Vaccine Lot # U-Flu Given 04/28/2020 Influenza,Unspecified 42406 Given 08/12/2019 Shingrix Zoster Vaccine (HZV), Recombinant, Subunit, Adjuvanted 87512 Given 07/22/2019 Adacel- Tetanus Diphtheria P ertussis (Age64 & Under) [id number] Given 06/13/2019 Shingrix Zoster Vaccine (HZV), Recombinant, Subunit, Adjuvanted U-Flu Given 05/13/2019 Influenza,Unspecified U-Pneum Given 05/29/2018 Pneumococcal,Unspecified U-Flu Given 05/29/2018 Influenza,Unspecified 49337 Given 05/14/2015 Prevnar 13 69512 Given 06/17/2013 Pneumovax 23 40042 Refused 07/09/2017 Influenza Vaccin e Quadrivalent Preser/Antibiotic [...] Test Result H/L Range Note A1c 05/03/2021 [facility] Cue Selector: Dr Pelon William [place] [id number] [phone] Hba1c 6.9 % High <5.7 1 Est Avg Glucose 151 mg/dL High 60 - 110 Comprehensive Chem Profile 05/03/2021 [facility] Cue Selector: [place] [address] [phone] Glucose 173 mg/dL High 74 - 99 [...] mL/min >60 3 Laboratory test finding 05/03/2021 [facility] Cue Selector: [place] [address] [phone] Thyroid Stimulating Hormone 3.14 uIU/mL 0.3 6 - 3.74 T4 Free 0.93 ng/dL 0.76 - 1.46 Laboratory test finding 05/03/2021 [facility] Cue Selector: [place] [address] [phone] PSA 0.41 ng/mL <4.00 4 Comprehensive Chem Profile 12/22/2020 [facility] Cue Selector: [place] [address] [phone] Glucose 131 mg/dL High 74 - 99 [...] 60 mL/min >60 6 Lipid Profile 12/22/2020 [facility] , Cue Selector: [place] [address] [phone] Cholesterol 154 mg/dL 131 - 200 Triglycerides 143 mg/dL 30 - 150 HDL Cholesterol 47 mg/dL 35 - 60 LDL (Calculated) 78 CALC 50 - 159 A1c 12/22/2020 [email or web address] , Cue Selector: [place] [address] [phone] Hba1c 7.0 % High <5.7 7 Est Avg Glucose 154 mg/dL High 60 - 110 Laboratory test finding 12/22/2020 [facility], Cue Selector: [place] [address] [phone] Thyroid Stimulating Hormone 3.59 uIU/mL 0.3 6 [...] LITTLE GFR LEFT ESRD GFR <15 ON DIESEL MAINTENANCE ELECTRICIAN 4 This assay was performed on the [employer] EXL using the B- Galactosidase/CPRG methodology and [...] LITTLE GFR LEFT ESRD GFR <15 ON DIESEL MAINTENANCE ELECTRICIAN 7 Lab Result Notes: Pre-Diabetes 5.7 - 6.4 % Diabetes = or > 6.5% Procedures Date Code Description Status 04/18/2021 [id number] Diabetic Retinal Eye Exam Comple manuel 12/27/2020 90420 Office/Outpatient Established Mo d MDM 30-39 Min Completed 10/18/2020 [id number] Diabetic Retinal Eye Exam Comple manuel 02/09/2020 [id number] Diabetic Retinal Eye Exam Comple manuel 06/30/2019 [id number] Diabetic Retinal Eye Exam Comple manuel 12/30/2018 [id number] Diabetic Retinal Eye Exam Comple manuel 08/23/2018 06123451 Colonoscopy Completed 06/10/2018 [id number] Diabetic Retinal Eye Exam Comple manuel 04/16/2017 [id number] Diabetic Retinal Eye Exam Comple manuel 04/11/2017 [id number] Diabetic Retinal Eye Exam Comple manuel 04/09/2017 [id number] Diabetic Retinal Eye Exam Comple manuel 03/23/2017 [id number] Diabetic Retinal Eye Exam Comple manuel 10/27/2014 [id number] Colonoscopy Completed Medical Devices Description No Information Available Encounters Type Date Location Provider Dx Diagnosis Office Visit 12/27/2020 1:30p [facility] Andrew Davis M.D. E78.5 Hyperlipidemia, [...] thyroid, unspecified Lab Schedule Plan of Treatment 12/27/2020 - Andrew Davis M.D.* E78.5 Hyperlipidemia, unspecified * E11.9 Type 2 diabetes mellitus without complications * E07.9 Disorder of thyroid, unspecified * N40.0 Benign prostatic hyperplasia without lower urinry tract symp * H91.93 Unspecified hearing loss, bilateral * J30.9 Allergic rhinitis, unspecified * H35.30 Unspecified macular degeneration * R42 Dizziness and giddiness * I10 Essential (primary) hypertension * Z85.828 Personal history of other malignant neoplasm of skin * Z86.010 Personal history of colonic polyps * Z13.89 Encounter for screening for other disorder * * Comments:* 1. Hyperlipidemia: Doing well on pravastatin, will continue and monitor.2. Type 2 diabetes mellitus without complications: Uncontrolled with HgbA1c of 7.0, which is an increase from prior at 6.6. His FIFI in May 2020 was normal. We discussed importance of maintaining blood sugar and he understands this. He will continue to work on his diet more carefully and will see in 4 months to make sure his diabetes is under good control.3. Thyroid disorder: Normal TSH, although slightly increased from prior. We will continue to monitor.4. Benign prostatic hyperplasia without lower urinry tract symp: Good results on current regimen, although he will discontinue second dose of tamsulosin due to his dizziness.5. Hearing loss, bilateral: He is wearing hearing aids, but it is still a significant barrier. We discussed his recent test results at [facility]. We will continue to work on optimizing communication. 6. Allergic rhinitis: Mild, intermittent, does not use medications.7. Macular degeneration: Stable and is on AREDS 1 tablet p.o. twice a day. Following up with Dr. Ramirez [facility] and will continue appropriate follow up.8. Personal history of other malignant neoplasm of skin: No new concerns with history of squamous cell cancer. He will follow up with [facility] appropriately. 9. Personal history of colonic polyps: Next colonoscopy is due in about 1 year. Presence of 2 p olyps on last colonoscopy via Dr. Cannon on 08/23/2018 with pathology showed fragments of tubular adenoma. He is waiting for a call from them and will follow up appropriately.10. Dizziness and giddiness: Possible etiology discussed. He is dehydrated and is encouraged to stay well hydrated. He will stop taking tamsulosin as discussed above and will update me in 1 week about his dizziness and if does not improve we will decrease meds.11. Hypertension: Lower than expected but we discussed in detail, will monitor off 2nd dose of tamsulosin and with better hydration.Ongoing cares: He is encouraged to avoid ibuprofen, Aleve and other nephrotoxic drugs. I am going to see him again in 4 months with CMP, lipids, TSH HgbA1c, FT4 and PSA. If he has new problems or issues sooner he will let us know. Functional Status Description No Information Available Mental Status Description No Information Available Referrals Description No Information Available
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
--- OUTSIDE RECORDS SUMMARY | 2021-06-14 12:04 | CCD | Continuity of Care Document ---
Author Author Albert Cesar Organization Unknown Address [address] [address] Phone [phone] Care Team Providers Care Bridge Repairer Name Role Phone Andrew Davis MD AUTM [phone] Aung Teague MD AUTM [phone] Baltazar Cannon MD AUTM [phone] Problems Active Problems Provider Date Essential hypertension [...] Tablets 1 by mouth every day 90tabs I12.9 Andrew Davis M.D. 07/09/2017 Hydrochlorothiazide 25mg Tablets [...] Vaccine Lot # U-Flu Given 04/28/2020 Influenza,Unspecified 59568 Given 08/12/2019 Shingrix Zoster Vaccine (HZV), Recombinant, Subunit, Adjuvanted 59112 Given 07/22/2019 Adacel- Tetanus Diphtheria P ertussis [id number] 53094 Given 06/13/2019 Shingrix Zoster Vaccine (HZV), Recombinant, Subunit, Adjuvanted U-Flu Given 05/13/2019 Influenza,Unspecified U-Pneum Given 05/29/2018 Pneumococcal,Unspecified U-Flu Given 05/29/2018 Influenza,Unspecified 39196 Given 05/14/2015 Prevnar 13 Given 06/17/2013 Pneumovax 23 79712 Refused 07/09/2017 Influenza Vaccin e Quadrivalent Preser/Antibiotic [...] H/L Range Note Basic Metabolic Panel 05/27/2021 [facility] Metalsmith Helper: Dr Pelon William [place], [place] [id number] [phone] Glucose 115 mg/dL High 74 - 99 [...] mL/min >60 2 Complete Blood Count 05/04/2021 [facility] Metalsmith Helper: [place] [address] [phone] WBC 7.8 x10*3/UL 4.1 - 10.9 RBC [...] 5.6 x10*3/UL 2.0 - 7.8 A1c 05/03/2021 [facility] Metalsmith Helper: [place] [address] [phone] Hba1c 6.9 % High <5.7 3 Est Avg Glucose 151 mg/dL High 60 - 110 Comprehensive Chem Profile 05/03/2021 [facility] Metalsmith Helper: [place] [address] [phone] Glucose 173 mg/dL High 74 - 99 [...] mL/min >60 5 Laboratory test finding 05/03/2021 [facility] Metalsmith Helper: [place] [address] [phone] Thyroid Stimulating Hormone 3.14 uIU/mL 0.3 6 - 3.74 T4 Free 0.93 ng/dL 0.76 - 1.46 Laboratory test finding 05/03/2021 [facility] Metalsmith Helper: [place] [address] [phone] PSA 0.41 ng/mL <4.00 6 Comprehensive Chem Profile 12/22/2020 [facility] Metalsmith Helper: [place] [address] [phone] Glucose 131 mg/dL High 74 - 99 [...] 60 mL/min >60 8 Lipid Profile 12/22/2020 [facility] , Metalsmith Helper: Dr Pelon William [place], [place] [id number] [phone] Cholesterol 154 mg/dL 131 - 200 Triglycerides 143 mg/dL 30 - 150 HDL Cholesterol 47 mg/dL 35 - 60 LDL (Calculated) 78 CALC 50 - 159 A1c 12/22/2020 [facility] , Metalsmith Helper: [place] [address] [phone] Hba1c 7.0 % High <5.7 9 Est Avg Glucose 154 mg/dL High 60 - 110 Laboratory test finding 12/22/2020 [facility], Metalsmith Helper: [place] [address] [phone] Thyroid Stimulating Hormone 3.59 uIU/mL 0.3 6 - 3.74 1 100-125 mg/dL PRE-DIABET ES/FASTING >126 mg/dL DIABETES/FASTING 2 CHRONIC KIDNEY DISEASE STAGI NG PER NKF STAGE I & II GFR >= 60 NORMAL TO MILDLY DECREASED STAGE III GFR 30-59 MODERATELY DECREASED STAGE IV GFR 15-29 SEVERELY DECREASED STAGE V GFR <15 VERY LITTLE GFR LEFT ESRD GFR <15 ON FINGER BUFF SEWER 3 Lab Result Notes: Pre-Diabetes 5.7 - [...] LITTLE GFR LEFT ESRD GFR <15 ON FINGER BUFF SEWER 6 This assay was performed on the [employer] EXL using the B- Galactosidase/CPRG methodology and [...] LITTLE GFR LEFT ESRD GFR <15 ON FINGER BUFF SEWER 9 Lab Result Notes: Pre-Diabetes 5.7 - 6.4 % Diabetes = or > 6.5% Procedures Date Code Description Status 05/27/2021 54059 Impacted Cerumen Irrigat/Lavage Completed 05/27/2021 04875 Office/Outpatient Established Lo w MDM 20-29 Min Completed 05/04/2021 59154 Office/Outpatient Established Mo d MDM 30-39 Min Completed 05/04/2021 41334 EKG/Interpretation & Report Comp leted 04/18/2021 [id number] Diabetic Retinal Eye Exam Comple manuel 12/27/2020 66085 Office/Outpatient Established Mo d MDM 30-39 Min Completed 10/18/2020 [id number] Diabetic Retinal Eye Exam Comple manuel 02/09/2020 [id number] Diabetic Retinal Eye Exam Comple manuel 06/30/2019 [id number] Diabetic Retinal Eye Exam Comple manuel 12/30/2018 794448107 Diabetic Retinal Eye Exam Comple manuel 08/23/2018 [id number] Colonoscopy Completed 06/10/2018 812160194 Diabetic Retinal Eye Exam Comple manuel 04/16/2017 [id number] Diabetic Retinal Eye Exam Comple maneul 04/11/2017 597518562 Diabetic Retinal Eye Exam Comple manuel 04/09/2017 813973070 Diabetic Retinal Eye Exam Comple manuel 03/23/2017 254829804 Diabetic Retinal Eye Exam Comple manuel 10/27/2014 [id number] Colonoscopy Completed Medical Devices Description No Information Available Encounters Type Date Location Provider Dx Diagnosis Office Visit 05/27/2021 3:00p [facility] MELA Cesar R42 Dizziness and giddiness I12.9 Hypertensive chronic kidney disease w stg 1-4/unsp chr kdny N18.31 Chronic kidney disease, stag e 3a H61.23 Impacted cerumen, bilateral R35.1 Nocturia R41.81 Age-related cognitive declin e Office Visit 05/04/2021 11:30a [facility] Andrew Davis M.D. E11.9 Type 2 diabetes mellitus without complic ations R42 Dizziness and giddiness E07.9 Disorder of thyroid, unspeci fied E11.9 Type 2 diabetes mellitus wit hout complications N40.0 Benign prostatic hyperplasia without lower urinry tract symp E07.9 Disorder of thyroid, unspeci fied E78.5 Hyperlipidemia, unspecified N40.0 Benign prostatic hyperplasia without lower urinry tract symp H91.93 Unspecified hearing loss, bi lateral E78.5 Hyperlipidemia, unspecified J30.9 Allergic rhinitis, unspecifi ed H91.93 Unspecified hearing loss, bi lateral H35.30 Unspecified macular degenera tion J30.9 Allergic rhinitis, unspecifi ed Z87.442 Personal history of urinary calculi H35.30 Unspecified macular degenera tion M17.11 Unilateral primary osteoarth ritis, right knee Z87.442 Personal history of urinary calculi M17.11 Unilateral primary osteoarth ritis, right knee Office Visit 12/27/2020 1:30p [facility], Sheila Davis M.D. E78.5 Hyperlipidemia, unspecified E11.9 Type [...] Provider 05/27/2021 R42 Dizziness and giddiness Taty Carballo [facility] 05/27/2021 I12.9 Hypertensive chronic kidney disease with stage 1 through stage 4 chronic kidney disease, or unspecified chronic kidney disease MELA Cesar 05/27/2021 N18.31 Chronic kidney disease, stage 3a MELA Cesar 05/27/2021 H61.23 Impacted cerumen, bilateral MELA Cesar 05/27/2021 R35.1 Nocturia MELA Cesar 05/27/2021 R41.81 Age-related cognitive decline An MELA Pereira 05/04/2021 E11.9 Type 2 diabetes mellitus without complications Andrew Davis M.D. 05/04/2021 R42 Dizziness and giddiness Andrew Davis M.D. 05/04/2021 E07.9 Disorder of thyroid, unspecified Andrew Davis M.D. 05/04/2021 E11.9 Type 2 diabetes mellitus without complications Andrew Davis M.D. 05/04/2021 N40.0 Benign prostatic hyp erplasia without lower urinary tract symptoms Andrew Davis M.D. 05/04/2021 E07.9 Disorder of thyroid, unspecified Andrew Davis M.D. 05/04/2021 E78.5 Hyperlipidemia, unspecified Gisela Davis M.D. 05/04/2021 N40.0 Benign prostatic hyp erplasia without lower urinary tract symptoms Andrew Davis M.D. 05/04/2021 H91.93 Unspecified hearing loss, bilate ral Andrew Davis M.D. 05/04/2021 E78.5 Hyperlipidemia, unspecified Gisela Davis M.D. 05/04/2021 J30.9 Allergic rhinitis, unspecified Avi Davis M.D. 05/04/2021 H91.93 Unspecified hearing loss, bilate ral Andrew Davis M.D. 05/04/2021 H35.30 Unspecified macular degeneration Andrew Davis M.D. 05/04/2021 J30.9 Allergic rhinitis, unspecified J abhijeet Davis M.D. 05/04/2021 Z87.442 Personal history of urinary calc vikki Andrew Davis M.D. 05/04/2021 H35.30 Unspecified macular degeneration Andrew Davis M.D. 05/04/2021 M17.11 Unilateral primary osteoarthriti s, right knee Andrew Davis M.D. 05/04/2021 Z87.442 Personal history [...] 11:30 am - Andrew Davis M.D. at [facility] 12/27/2020 - Andrew Davis M.D.* E78.5 Hyperlipidemia, [...] We discussed his recent test results at [facility]. We will continue to work on [...] CONSULT FOR DIZZINESS Patient Notified 06/30/20 21 [address] [place] [address] [phone]
--- OUTSIDE RECORDS SUMMARY | 2021-06-14 12:04 | CCD | Continuity of Care Document ---
Author Author Albert Cesar Organization Unknown Address [address] [address] Phone [phone] Care Team Providers Care Vibration Analyst Name Role Phone Andrew Davis MD AUTM [phone] Aung Teague MD AUTM [phone] Baltazar Cannon MD AUTM [phone] Problems Active Problems Provider Date Essential hypertension [...] Vaccine Lot # U-Flu Given 04/28/2020 Influenza,Unspecified 98026 Given 08/12/2019 Shingrix Zoster Vaccine (HZV), Recombinant, Subunit, Adjuvanted 45007 Given 07/22/2019 Adacel- Tetanus Diphtheria P ertussis [id number] 26517 Given 06/13/2019 Shingrix Zoster Vaccine (HZV), Recombinant, Subunit, Adjuvanted U-Flu Given 05/13/2019 Influenza,Unspecified U-Pneum Given 05/29/2018 Pneumococcal,Unspecified U-Flu Given 05/29/2018 Influenza,Unspecified 61327 Given 05/14/2015 Prevnar 13 68959 Given 06/17/2013 Pneumovax 23 46368 Refused 07/09/2017 Influenza Vaccin e Quadrivalent Preser/Antibiotic [...] H/L Range Note Basic Metabolic Panel 05/27/2021 [facility] Gill Box Fixer: Dr Pelon William [place] [id number] [phone] Glucose 115 mg/dL High 74 - 99 [...] mL/min >60 2 Complete Blood Count 05/04/2021 [facility] Gill Box Fixer: [place] [address] [phone] WBC 7.8 x10*3/UL 4.1 - 10.9 RBC [...] 5.6 x10*3/UL 2.0 - 7.8 A1c 05/03/2021 [facility] , Gill Box Fixer: [place] [address] [phone] Hba1c 6.9 % High <5.7 3 Est Avg Glucose 151 mg/dL High 60 - 110 Comprehensive Chem Profile 05/03/2021 [facility] Gill Box Fixer: [place] [address] [phone] Glucose 173 mg/dL High 74 - 99 [...] mL/min >60 5 Laboratory test finding 05/03/2021 [facility] Gill Box Fixer: [place] [address] [phone] Thyroid Stimulating Hormone 3.14 uIU/mL 0.3 6 - 3.74 T4 Free 0.93 ng/dL 0.76 - 1.46 Laboratory test finding 05/03/2021 [facility] Gill Box Fixer: [place] [address] [phone] PSA 0.41 ng/mL <4.00 6 Comprehensive Chem Profile 12/22/2020 [facility] Gill Box Fixer: [place] [address] [phone] Glucose 131 mg/dL High 74 - 99 [...] 60 mL/min >60 8 Lipid Profile 12/22/2020 [facility] , Gill Box Fixer: Dr Pelon Willima [place], [place] [id number] [phone] Cholesterol 154 mg/dL 131 - 200 Triglycerides 143 mg/dL 30 - 150 HDL Cholesterol 47 mg/dL 35 - 60 LDL (Calculated) 78 CALC 50 - 159 A1c 12/22/2020 [facility] Gill Box Fixer: [place] [address] [phone] Hba1c 7.0 % High <5.7 9 Est Avg Glucose 154 mg/dL High 60 - 110 Laboratory test finding 12/22/2020 [facility], Gill Box Fixer: [place] [address] [phone] Thyroid Stimulating Hormone 3.59 uIU/mL 0.3 6 - 3.74 1 100-125 mg/dL PRE-DIABET ES/FASTING >126 mg/dL DIABETES/FASTING 2 CHRONIC KIDNEY DISEASE STAGI NG PER NKF STAGE I & II GFR >= 60 NORMAL TO MILDLY DECREASED STAGE III GFR 30-59 MODERATELY DECREASED STAGE IV GFR 15-29 SEVERELY DECREASED STAGE V GFR <15 VERY LITTLE GFR LEFT ESRD GFR <15 ON CASE MANAGER 3 Lab Result Notes: Pre-Diabetes 5.7 - [...] LITTLE GFR LEFT ESRD GFR <15 ON CASE MANAGER 6 This assay was performed on the [employer] EXL using the B- Galactosidase/CPRG methodology and [...] LITTLE GFR LEFT ESRD GFR <15 ON CASE MANAGER 9 Lab Result Notes: Pre-Diabetes 5.7 - 6.4 % Diabetes = or > 6.5% Procedures Date Code Description Status 05/27/2021 02218 Office/Outpatient Established Lo w MDM 20-29 Min Completed 04/18/2021 [id number] Diabetic Retinal Eye Exam Comple manuel 12/27/2020 04052 Office/Outpatient Established Mo d MDM 30-39 Min Completed 10/18/2020 413091747 Diabetic Retinal Eye Exam Comple manuel 02/09/2020 [id number] Diabetic Retinal Eye Exam Comple manuel 06/30/2019 148561181 Diabetic Retinal Eye Exam Comple manuel 12/30/2018 308793255 Diabetic Retinal Eye Exam Comple manuel 08/23/2018 [id number] Colonoscopy Completed 06/10/2018 284535152 Diabetic Retinal Eye Exam Comple manuel 04/16/2017 125060956 Diabetic Retinal Eye Exam Comple manuel 04/11/2017 866850206 Diabetic Retinal Eye Exam Comple manuel 04/09/2017 553153329 Diabetic Retinal Eye Exam Comple manuel 03/23/2017 339016933 Diabetic Retinal Eye Exam Comple manuel 10/27/2014 76081470 Colonoscopy Completed Medical Devices Description No Information Available Encounters Type Date Location Provider Dx Diagnosis Office Visit 05/27/2021 3:00p [facility] Taty Blount , FRONT DESK WORKER R42 Dizziness and giddiness I10 Essential (primary) hyperten erin H61.23 Impacted cerumen, bilateral R35.1 Nocturia R41.81 Age-related cognitive declin e Office Visit 12/27/2020 1:30p [facility] Andrew Davis M.D. E78.5 Hyperlipidemia, [...] R42 Dizziness and giddiness Taty Rivas atiya, [facility] 05/27/2021 I10 Essential (primary) hypertension Taty Blount, [facility] 05/27/2021 H61.23 Impacted cerumen, bilateral Taty Blount, [facility] 05/27/2021 R35.1 Nocturia Taty Blount, [facility] 05/27/2021 R41.81 Age-related cognitive decline An charlee Blount, [facility] 05/04/2021 R42 Dizziness and giddiness Andrew Davis [...] 12/22/2020 E07.9 Disorder of thyroid, unspecified Andrew aDvis M.D. 12/22/2020 E07.9 Disorder of thyroid, unspecified Lab Schedule Plan of Treatment Future Appointment(s):* 06/16/2021 11:30 am - Andrew Davis M.D. at [facility] 05/27/2021 - MELA Cesar* R42 [...] FOR DIZZINESS Patient Notified 06/30/20 21 [address] [place] [id number] [phone]
--- OUTSIDE RECORDS SUMMARY | 2021-06-14 12:04 | CCD | Continuity of Care Document ---
Author Author Lab Schedule, Albert Savage Organization Unknown Address [address] [place] [address] Phone Unavailable Care Team Providers Care Machine Lead Burner Name Role Phone Andrew Davis MD AUTM [phone] Aung Teague MD AUTM [phone] Baltazar Cannon MD AUTM [phone] Problems Active Problems Provider Date Essential hypertension [...] Vaccine Lot # U-Flu Given 04/28/2020 Influenza,Unspecified 87187 Given 08/12/2019 Shingrix Zoster Vaccine (HZV), Recombinant, Subunit, Adjuvanted 93188 Given 07/22/2019 Adacel- Tetanus Diphtheria P ertussis (Age64 & Under) [id number] 98014 Given 06/13/2019 Shingrix Zoster Vaccine (HZV), Recombinant, Subunit, Adjuvanted U-Flu Given 05/13/2019 Influenza,Unspecified U-Pneum Given 05/29/2018 Pneumococcal,Unspecified U-Flu Given 05/29/2018 Influenza,Unspecified 33959 Given 05/14/2015 Prevnar 13 51846 Given 06/17/2013 Pneumovax 23 04946 Refused 07/09/2017 Influenza Vaccin e Quadrivalent Preser/Antibiotic [...] Test Result H/L Range Note A1c 05/03/2021 [facility] Annual Giving Officer: Dr Pelon William [place], [place] [id number] [phone] Hba1c 6.9 % High <5.7 1 Est Avg Glucose 151 mg/dL High 60 - 110 Comprehensive Chem Profile 05/03/2021 [facility] Annual Giving Officer: [place] [address] [phone] Glucose 173 mg/dL High 74 - 99 [...] mL/min >60 3 Laboratory test finding 05/03/2021 [facility] Annual Giving Officer: [place] [address] [phone] Thyroid Stimulating Hormone 3.14 uIU/mL 0.3 6 - 3.74 T4 Free 0.93 ng/dL 0.76 - 1.46 Laboratory test finding 05/03/2021 [facility] Annual Giving Officer: [place] [address] [phone] PSA 0.41 ng/mL <4.00 4 Comprehensive Chem Profile 12/22/2020 [facility], Annual Giving Officer: [place] [address] [phone] Glucose 131 mg/dL High 74 - 99 [...] 60 mL/min >60 6 Lipid Profile 12/22/2020 [facility] , Annual Giving Officer: Dr Pelon William [place], [place] [id number] [phone] Cholesterol 154 mg/dL 131 - 200 Triglycerides 143 mg/dL 30 - 150 HDL Cholesterol 47 mg/dL 35 - 60 LDL (Calculated) 78 CALC 50 - 159 A1c 12/22/2020 [facility] Annual Giving Officer: [place] [address] [phone] Hba1c 7.0 % High <5.7 7 Est Avg Glucose 154 mg/dL High 60 - 110 Laboratory test finding 12/22/2020 [facility], Annual Giving Officer: [place] [address] [phone] Thyroid Stimulating Hormone 3.59 uIU/mL 0.3 6 [...] LITTLE GFR LEFT ESRD GFR <15 ON FIRE INFORMATION OFFICER 4 This assay was performed on the Siem[employer] EXL using the B- Galactosidase/CPRG methodology and [...] LITTLE GFR LEFT ESRD GFR <15 ON FIRE INFORMATION OFFICER 7 Lab Result Notes: Pre-Diabetes 5.7 - 6.4 % Diabetes = or > 6.5% Procedures Date Code Description Status 04/18/2021 [id number] Diabetic Retinal Eye Exam Comple manuel 12/27/2020 12575 Office/Outpatient Established Mo d MDM 30-39 Min Completed 10/18/2020 139602303 Diabetic Retinal Eye Exam Comple manuel 02/09/2020 449846320 Diabetic Retinal Eye Exam Comple manuel 06/30/2019 983633908 Diabetic Retinal Eye Exam Comple manuel 12/30/2018 860325632 Diabetic Retinal Eye Exam Comple manuel 08/23/2018 24782331 Colonoscopy Completed 06/10/2018 164603108 Diabetic Retinal Eye Exam Comple manuel 04/16/2017 099423974 Diabetic Retinal Eye Exam Comple manuel 04/11/2017 154323352 Diabetic Retinal Eye Exam Comple manuel 04/09/2017 038134766 Diabetic Retinal Eye Exam Comple manuel 03/23/2017 226006583 Diabetic Retinal Eye Exam Comple manuel 10/27/2014 53612798 Colonoscopy Completed Medical Devices Description No Information Available Encounters Type Date Location Provider Dx Diagnosis Office Visit 12/27/2020 1:30p [facility] Andrew Davis M.D. E78.5 Hyperlipidemia, [...] Davis M.D. 12/27/2020 J30.9 Allergic rhinitis, unspecified vAi Davis M.D. 12/27/2020 H35.30 Unspecified macular degeneration [...]
--- OUTSIDE RECORDS SUMMARY | 2021-06-14 12:04 | CCD | Continuity of Care Document ---
Author Author Albert Cesar Organization Unknown Address [address] [address] Phone [phone] Care Team Providers Care Steel Pourer Name Role Phone Andrew Davis MD AUTM [phone] Aung Teague MD AUTM [phone] Baltazar Cannon MD AUTM [phone] Problems Active Problems Provider Date Essential hypertension [...] Vaccine Lot # U-Flu Given 04/28/2020 Influenza,Unspecified 26122 Given 08/12/2019 Shingrix Zoster Vaccine (HZV), Recombinant, Subunit, Adjuvanted 46942 Given 07/22/2019 Adacel- Tetanus Diphtheria P ertussis [id number] 56328 Given 06/13/2019 Shingrix Zoster Vaccine (HZV), Recombinant, Subunit, Adjuvanted U-Flu Given 05/13/2019 Influenza,Unspecified U-Pneum Given 05/29/2018 Pneumococcal,Unspecified U-Flu Given 05/29/2018 Influenza,Unspecified 25753 Given 05/14/2015 Prevnar 13 21290 Given 06/17/2013 Pneumovax 23 [id number] Refused 07/09/2017 Influenza Vaccin e Quadrivalent Preser/Antibiotic [...] H/L Range Note Basic Metabolic Panel 05/27/2021 [facility] Development Engineer: Dr Pelon William [place] [id number] [phone] Glucose 115 mg/dL High 74 - 99 [...] mL/min >60 2 Complete Blood Count 05/04/2021 [facility] Development Engineer: [place] [address] [phone] WBC 7.8 x10*3/UL 4.1 - 10.9 RBC [...] 5.6 x10*3/UL 2.0 - 7.8 A1c 05/03/2021 [facility] , Development Engineer: [place] [address] [phone] Hba1c 6.9 % High <5.7 3 Est Avg Glucose 151 mg/dL High 60 - 110 Comprehensive Chem Profile 05/03/2021 [facility], Development Engineer: [place] [address] [phone] Glucose 173 mg/dL High 74 - 99 [...] mL/min >60 5 Laboratory test finding 05/03/2021 [facility] Development Engineer: [place] [address] [phone] Thyroid Stimulating Hormone 3.14 uIU/mL 0.3 6 - 3.74 T4 Free 0.93 ng/dL 0.76 - 1.46 Laboratory test finding 05/03/2021 [facility] Development Engineer: [place] [address] [phone] PSA 0.41 ng/mL <4.00 6 Comprehensive Chem Profile 12/22/2020 [facility] Development Engineer: [place] [address] [phone] Glucose 131 mg/dL High 74 - 99 [...] 60 mL/min >60 8 Lipid Profile 12/22/2020 [facility] , Development Engineer: Dr Pelon William [place], [place] [id number] [phone] Cholesterol 154 mg/dL 131 - 200 Triglycerides 143 mg/dL 30 - 150 HDL Cholesterol 47 mg/dL 35 - 60 LDL (Calculated) 78 CALC 50 - 159 A1c 12/22/2020 [facility] Development Engineer: [place] [address] [phone] Hba1c 7.0 % High <5.7 9 Est Avg Glucose 154 mg/dL High 60 - 110 Laboratory test finding 12/22/2020 [facility], Development Engineer: [place] [address] [phone] Thyroid Stimulating Hormone 3.59 uIU/mL 0.3 6 - 3.74 1 100-125 mg/dL PRE-DIABET ES/FASTING >126 mg/dL DIABETES/FASTING 2 CHRONIC KIDNEY DISEASE STAGI NG PER NKF STAGE I & II GFR >= 60 NORMAL TO MILDLY DECREASED STAGE III GFR 30-59 MODERATELY DECREASED STAGE IV GFR 15-29 SEVERELY DECREASED STAGE V GFR <15 VERY LITTLE GFR LEFT ESRD GFR <15 ON TRUCK RENTAL CLERK 3 Lab Result Notes: Pre-Diabetes 5.7 - [...] LITTLE GFR LEFT ESRD GFR <15 ON TRUCK RENTAL CLERK 6 This assay was performed on the Mor.sl EXL using the B- Galactosidase/CPRG methodology and [...] LITTLE GFR LEFT ESRD GFR <15 ON TRUCK RENTAL CLERK 9 Lab Result Notes: Pre-Diabetes 5.7 - 6.4 % Diabetes = or > 6.5% Procedures Date Code Description Status 05/27/2021 04522 Office/Outpatient Established Lo w MDM 20-29 Min Completed 04/18/2021 [id number] Diabetic Retinal Eye Exam Comple manuel 12/27/2020 06567 Office/Outpatient Established Mo d MDM 30-39 Min Completed 10/18/2020 [id number] Diabetic Retinal Eye Exam Comple manuel 02/09/2020 [id number] Diabetic Retinal Eye Exam Comple manuel 06/30/2019 [id number] Diabetic Retinal Eye Exam Comple manuel 12/30/2018 [id number] Diabetic Retinal Eye Exam Comple manuel 08/23/2018 [id number] Colonoscopy Completed 06/10/2018 [id number] Diabetic Retinal Eye Exam Comple manuel 04/16/2017 558543902 Diabetic Retinal Eye Exam Comple manuel 04/11/2017 061374833 Diabetic Retinal Eye Exam Comple manuel 04/09/2017 [id number] Diabetic Retinal Eye Exam Comple manuel 03/23/2017 874063020 Diabetic Retinal Eye Exam Comple manuel 10/27/2014 [id number] Colonoscopy Completed Medical Devices Description No Information Available Encounters Type Date Location Provider Dx Diagnosis Office Visit 05/27/2021 3:00p [facility] Taty Blount , RELATIONS LIAISON R42 Dizziness and giddiness I10 Essential (primary) hyperten erin H61.23 Impacted cerumen, bilateral R35.1 Nocturia R41.81 Age-related cognitive declin e Office Visit 12/27/2020 1:30p [facility] Andrew Davis M.D. E78.5 Hyperlipidemia, [...] R42 Dizziness and giddiness Taty Rivas atiya, [facility] 05/27/2021 I10 Essential (primary) hypertension Taty Blount, [facility] 05/27/2021 H61.23 Impacted cerumen, bilateral Taty Blount, [facility] 05/27/2021 R35.1 Nocturia Taty Blount, [facility] 05/27/2021 R41.81 Age-related cognitive decline An charlee Blount, [facility] 05/04/2021 R42 Dizziness and giddiness Andrew Davis [...] Personal history of urinary calc vikki Andrew Davsi M.D. 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 at [facility] 05/27/2021 - MELA Cesar* R42 [...] FOR DIZZINESS Patient Notified 06/30/20 21 [address] [id number] [phone]
--- OUTSIDE RECORDS SUMMARY | 2021-06-14 12:04 | CCD | Continuity of Care Document ---
Author Author Lab Schedule, Albert Savage Organization Unknown Address [address] [place] [address] Phone Unavailable Care Team Providers Care Director Of Sleep Name Role Phone Andrew Davis MD AUTM [phone] Aung Teague MD AUTM [phone] Baltazar Cannon MD AUTM [phone] Problems Active Problems Provider Date Essential hypertension [...] Vaccine Lot # U-Flu Given 04/28/2020 Influenza,Unspecified 47458 Given 08/12/2019 Shingrix Zoster Vaccine (HZV), Recombinant, Subunit, Adjuvanted 49756 Given 07/22/2019 Adacel- Tetanus Diphtheria P ertussis (Age64 & Under) [id number] 13525 Given 06/13/2019 Shingrix Zoster Vaccine (HZV), Recombinant, Subunit, Adjuvanted U-Flu Given 05/13/2019 Influenza,Unspecified U-Pneum Given 05/29/2018 Pneumococcal,Unspecified U-Flu Given 05/29/2018 Influenza,Unspecified 16615 Given 05/14/2015 Prevnar 13 63784 Given 06/17/2013 Pneumovax 23 77404 Refused 07/09/2017 Influenza Vaccin e Quadrivalent Preser/Antibiotic Free Im Use Vital Signs Date Vital Result Comment 12/27/2020 12:53pm BP Systolic 100 mmHg BP Diastolic 55 mmHg Heart Rate 101 /min Height 65 inches 5'5" Weight 189.38 lb O2 % BldC Oximetry 93 % RM Air BMI (Body Mass Index) 31.5 kg/m2 06/23/2020 1:31pm BP Systolic 138 mmHg BP Diastolic 80 mmHg Heart Rate 78 /min Height 65 inches 5'5" Weight 189.00 lb BMI (Body Mass Index) 31.4 kg/m2 Results Test Acquired Date Facility Test Result H/L Range Note Comprehensive Chem Profile 12/22/2020 [facility] Host And Hostess: [place] [address] [phone] Glucose 131 mg/dL High 74 - 99 1 BUN 24 mg/dL High 7 - 18 [...] mL/min >60 GFR >= 60 mL/min >60 2 Lipid Profile 12/22/2020 [facility] , Host And Hostess: Dr Pelon William [place], [place] [id number] [phone] Cholesterol 154 mg/dL 131 - 200 Triglycerides 143 mg/dL 30 - 150 HDL Cholesterol 47 mg/dL 35 - 60 LDL (Calculated) 78 CALC 50 - 159 A1c 12/22/2020 [facility] , Host And Hostess: [place] Pelon [place] [address] [phone] Hba1c 7.0 % High <5.7 3 Est Avg Glucose 154 mg/dL High 60 - 110 Laboratory test finding 12/22/2020 [facility], Host And Hostess: [place] [address] [phone] Thyroid Stimulating Hormone 3.59 uIU/mL 0.3 6 - 3.74 1 100-125 mg/dL PRE-DIABET ES/FASTING >126 mg/dL DIABETES/FASTING 2 CHRONIC KIDNEY DISEASE STAGI NG PER NKF STAGE I & II GFR >= 60 NORMAL TO MILDLY DECREASED STAGE III GFR 30-59 MODERATELY DECREASED STAGE IV GFR 15-29 SEVERELY DECREASED STAGE V GFR <15 VERY LITTLE GFR LEFT ESRD GFR <15 ON BURN TABLE OPERATOR 3 Lab Result Notes: Pre-Diabetes 5.7 - 6.4 % Diabetes = or > 6.5% Procedures Date Code Description Status 04/18/2021 [id number] Diabetic Retinal Eye Exam Comple manuel 12/27/2020 34537 Office/Outpatient Established Mo d MDM 30-39 Min Completed 10/18/2020 [id number] Diabetic Retinal Eye Exam Comple manuel 02/09/2020 506424114 Diabetic Retinal Eye Exam Comple manuel 06/30/2019 496380639 Diabetic Retinal Eye Exam Comple manuel 12/30/2018 860439429 Diabetic Retinal Eye Exam Comple manuel 08/23/2018 [id number] Colonoscopy Completed 06/10/2018 [id number] Diabetic Retinal Eye Exam Comple manuel 04/16/2017 [id number] Diabetic Retinal Eye Exam Comple manuel 04/11/2017 [id number] Diabetic Retinal Eye Exam Comple manuel 04/09/2017 403648781 Diabetic Retinal Eye Exam Comple manuel 03/23/2017 [id number] Diabetic Retinal Eye Exam Comple manuel 10/27/2014 [id number] Colonoscopy Completed Medical Devices Description No Information Available Encounters Type Date Location Provider Dx Diagnosis Office Visit 12/27/2020 1:30p [facility] Andrew Davis M.D. E78.5 Hyperlipidemia, [...] Lab Schedule Plan of Treatment Future Appointment(s):* 05/04/2021 11:30 am - Andrew Davis M.D. at [facility] 12/27/2020 - Andrew Davis M.D.* E78.5 [...] We discussed his recent test results at [facility]. We will continue to work on [...]
--- OUTSIDE RECORDS SUMMARY | 2021-06-14 12:04 | CCD | Continuity of Care Document ---
Author Author Albert DAVIS M.D. Organization Unknown Address [address] [address] Phone [phone] Care Team Providers Care Cyber Security Consultant Name Role Phone Andrew Davis MD AUTM [phone] Aung Teague MD AUTM [phone] Baltazar Cannon MD AUTM [phone] Problems Active Problems Provider Date Essential hypertension [...] Vaccine Lot # U-Flu Given 04/28/2020 Influenza,Unspecified 06561 Given 08/12/2019 Shingrix Zoster Vaccine (HZV), Recombinant, Subunit, Adjuvanted 99162 Given 07/22/2019 Adacel- Tetanus Diphtheria P ertussis [id number] 98256 Given 06/13/2019 Shingrix Zoster Vaccine (HZV), Recombinant, Subunit, Adjuvanted U-Flu Given 05/13/2019 Influenza,Unspecified U-Pneum Given 05/29/2018 Pneumococcal,Unspecified U-Flu Given 05/29/2018 Influenza,Unspecified 33889 Given 05/14/2015 Prevnar 13 85473 Given 06/17/2013 Pneumovax 23 04757 Refused 07/09/2017 Influenza Vaccin e Quadrivalent Preser/Antibiotic [...] H/L Range Note Complete Blood Count 05/04/2021 [facility] edith earl Hand Method Lasting Machine Operator: Dr Pelon [address] [place], [place] [id number] [phone] WBC 7.8 x10*3/UL 4.1 - 10.9 RBC [...] 5.6 x10*3/UL 2.0 - 7.8 A1c 05/03/2021 [facility] , Hand Method Lasting Machine Operator: Dr Pelon William [place], [place] [id number] [phone] Hba1c 6.9 % High <5.7 1 Est Avg Glucose 151 mg/dL High 60 - 110 Comprehensive Chem Profile 05/03/2021 [facility], Hand Method Lasting Machine Operator: Dr Pelon William [place], [place] [id number] [phone] Glucose 173 mg/dL High 74 - 99 [...] mL/min >60 3 Laboratory test finding 05/03/2021 [facility] Blanket Winder Helper adriana Hand Method Lasting Machine Operator: Dr Pelon [place] [id number] [phone] Thyroid Stimulating Hormone 3.14 uIU/mL 0.3 6 - 3.74 T4 Free 0.93 ng/dL 0.76 - 1.46 Laboratory test finding 05/03/2021 [facility] [employer] Winder Helper adriana Hand Method Lasting Machine Operator: Dr Pelon [place] [id number] [phone] PSA 0.41 ng/mL <4.00 4 Comprehensive Chem Profile 12/22/2020 [facility] kwon Hand Method Lasting Machine Operator: Dr Pelon [place] [address] [phone] Glucose 131 mg/dL High 74 - 99 [...] 60 mL/min >60 6 Lipid Profile 12/22/2020 [facility] , Hand Method Lasting Machine Operator: Dr [place] [id number] [phone] Cholesterol 154 mg/dL 131 - 200 Triglycerides 143 mg/dL 30 - 150 HDL Cholesterol 47 mg/dL 35 - 60 LDL (Calculated) 78 CALC 50 - 159 A1c 12/22/2020 [facility] , Hand Method Lasting Machine Operator: [place] [address] [phone] Hba1c 7.0 % High <5.7 7 Est Avg Glucose 154 mg/dL High 60 - 110 Laboratory test finding 12/22/2020 [facility] Blank[employer] Winder Helper edith wright Hand Method Lasting Machine Operator: [place] [address] [phone] Thyroid Stimulating Hormone 3.59 uIU/mL 0.3 6 [...] LITTLE GFR LEFT ESRD GFR <15 ON CHAIR FRAME BUILDER 4 This assay was performed on the [...] LITTLE GFR LEFT ESRD GFR <15 ON CHAIR FRAME BUILDER 7 Lab Result Notes: Pre-Diabetes 5.7 - 6.4 % Diabetes = or > 6.5% Procedures Date Code Description Status 04/18/2021 [id number] Diabetic Retinal Eye Exam Comple manuel 12/27/2020 18414 Office/Outpatient Established Mo d MDM 30-39 Min Completed 10/18/2020 765561641 Diabetic Retinal Eye Exam Comple manuel 02/09/2020 369279093 Diabetic Retinal Eye Exam Comple manuel 06/30/2019 571167091 Diabetic Retinal Eye Exam Comple manuel 12/30/2018 258470823 Diabetic Retinal Eye Exam Comple [facility] 08/23/2018 [id number] Colonoscopy Completed 06/10/2018 [id number] Diabetic Retinal Eye Exam Comple manuel 04/16/2017 369408099 Diabetic Retinal Eye Exam Comple manuel 04/11/2017 571585024 Diabetic Retinal Eye Exam Comple manuel 04/09/2017 684173295 Diabetic Retinal Eye Exam Comple manuel 03/23/2017 [id number] Diabetic Retinal Eye Exam Comple [facility] 10/27/2014 [id number] Colonoscopy Completed Medical Devices Description No Information Available Encounters Type Date Location Provider Dx Diagnosis Office Visit 12/27/2020 1:30p [facility] Andrew Davis M.D. E78.5 Hyperlipidemia, [...] E11.9 Type 2 diabetes mellitus without complications Anderw Davis M.D. 05/03/2021 E11.9 Type 2 diabetes [...] 11:30 am - Andrew Davis M.D. at [facility] 12/27/2020 - Andrew Davis M.D.* [...] We discussed his recent test results at [facility]. We will continue to work on [...]
--- OUTSIDE RECORDS SUMMARY | 2021-06-14 12:05 | CCD ---
Author Author [facility] Organization [facility] Address Unknown Phone Unavailable Care Team Providers Care Line Installation Supervisor Name Role Phone LePine, M Taty ECONOMIC DEVELOPMENT SPECIALIST Unavailable Unavailable LePine, M Taty ECONOMIC DEVELOPMENT SPECIALIST Unavailable Unavailable LePine, M Taty ECONOMIC DEVELOPMENT SPECIALIST Unavailable Unavailable LePine, M Taty ECONOMIC DEVELOPMENT SPECIALIST Unavailable Unavailable LePine, M Taty ECONOMIC DEVELOPMENT SPECIALIST Unavailable Unavailable LePine, M Taty ECONOMIC DEVELOPMENT SPECIALIST Unavailable Unavailable LePine, M Taty ECONOMIC DEVELOPMENT SPECIALIST Unavailable Unavailable LePine, M Taty ECONOMIC DEVELOPMENT SPECIALIST Unavailable Unavailable LePine, M Taty ECONOMIC DEVELOPMENT SPECIALIST Unavailable Unavailable LePine, M Taty ECONOMIC DEVELOPMENT SPECIALIST Unavailable Unavailable LePine, M Taty ECONOMIC DEVELOPMENT SPECIALIST Unavailable Unavailable LePine, M Taty ECONOMIC DEVELOPMENT SPECIALIST Unavailable Unavailable LePine, M Taty ECONOMIC DEVELOPMENT SPECIALIST Unavailable Unavailable LePine, M Taty ECONOMIC DEVELOPMENT SPECIALIST Unavailable Unavailable LePine, M Taty ECONOMIC DEVELOPMENT SPECIALIST Unavailable Unavailable LePine, M Taty ECONOMIC DEVELOPMENT SPECIALIST Unavailable Unavailable LePine, M Taty ECONOMIC DEVELOPMENT SPECIALIST Unavailable Unavailable LePine, M Taty ECONOMIC DEVELOPMENT SPECIALIST Unavailable Unavailable LePine, M Taty ECONOMIC DEVELOPMENT SPECIALIST Unavailable Unavailable LePine, M Taty ECONOMIC DEVELOPMENT SPECIALIST Unavailable Unavailable LePine, M Taty ECONOMIC DEVELOPMENT SPECIALIST Unavailable Unavailable LePine, M Taty ECONOMIC DEVELOPMENT SPECIALIST Unavailable Unavailable LePine, M Taty ECONOMIC DEVELOPMENT SPECIALIST Unavailable Unavailable LePine, M Taty ECONOMIC DEVELOPMENT SPECIALIST Unavailable Unavailable LePine, M Taty ECONOMIC DEVELOPMENT SPECIALIST Unavailable Unavailable LePine, M Taty ECONOMIC DEVELOPMENT SPECIALIST Unavailable Unavailable LePine, M Taty ECONOMIC DEVELOPMENT SPECIALIST Unavailable Unavailable LePine, M Taty ECONOMIC DEVELOPMENT SPECIALIST Unavailable Unavailable LePine, M Taty ECONOMIC DEVELOPMENT SPECIALIST Unavailable Unavailable LePine, M Taty ECONOMIC DEVELOPMENT SPECIALIST Unavailable Unavailable LePine, M Taty ECONOMIC DEVELOPMENT SPECIALIST Unavailable Unavailable LePine, M Taty ECONOMIC DEVELOPMENT SPECIALIST Unavailable Unavailable LePine, M Taty ECONOMIC DEVELOPMENT SPECIALIST Unavailable Unavailable LePine, M Taty ECONOMIC DEVELOPMENT SPECIALIST Unavailable Unavailable LePine, M Taty ECONOMIC DEVELOPMENT SPECIALIST Unavailable Unavailable LePine, M Taty ECONOMIC DEVELOPMENT SPECIALIST Unavailable Unavailable LePine, M Taty ECONOMIC DEVELOPMENT SPECIALIST Unavailable Unavailable LePine, M Taty ECONOMIC DEVELOPMENT SPECIALIST Unavailable Unavailable LePine, M Taty ECONOMIC DEVELOPMENT SPECIALIST Unavailable Unavailable LePine, M Taty ECONOMIC DEVELOPMENT SPECIALIST Unavailable Unavailable LePine, M Taty ECONOMIC DEVELOPMENT SPECIALIST Unavailable Unavailable LePine, M Taty ECONOMIC DEVELOPMENT SPECIALIST Unavailable Unavailable LePine, M Taty ECONOMIC DEVELOPMENT SPECIALIST Unavailable Unavailable LePine, M Taty ECONOMIC DEVELOPMENT SPECIALIST Unavailable Unavailable LePine, M Taty ECONOMIC DEVELOPMENT SPECIALIST Unavailable Unavailable LePine, M Taty ECONOMIC DEVELOPMENT SPECIALIST Unavailable Unavailable LePine, M Taty ECONOMIC DEVELOPMENT SPECIALIST Unavailable Unavailable LePine, M Taty ECONOMIC DEVELOPMENT SPECIALIST Unavailable Unavailable LePine, M Taty ECONOMIC DEVELOPMENT SPECIALIST Unavailable Unavailable LePine, M Taty ECONOMIC DEVELOPMENT SPECIALIST Unavailable Unavailable LePine, M Taty ECONOMIC DEVELOPMENT SPECIALIST Unavailable Unavailable LePine, M Taty ECONOMIC DEVELOPMENT SPECIALIST Unavailable Unavailable LePine, M Taty ECONOMIC DEVELOPMENT SPECIALIST Unavailable Unavailable LePine, M Taty ECONOMIC DEVELOPMENT SPECIALIST Unavailable Unavailable LePine, M Taty ECONOMIC DEVELOPMENT SPECIALIST Unavailable Unavailable LePine, M Taty ECONOMIC DEVELOPMENT SPECIALIST Unavailable Unavailable Rajan Davis MD Unavailable Unavailable Rajan Davis MD Unavailable Unavailable Rajan Davis MD Unavailable Unavailable Rajan Davis MD Unavailable Unavailable Rajan Davis MD Unavailable Unavailable Rajan Davis MD Unavailable Unavailable Rajan Davis MD Unavailable Unavailable Rajan Davis MD Unavailable Unavailable Rajan Davis MD Unavailable Unavailable Rajan Davis MD Unavailable Unavailable Rajan Davis MD Unavailable Unavailable Rajan Davis MD Unavailable Unavailable Rajan Davis MD Unavailable Unavailable Rajan Davis MD Unavailable Unavailable Rajan Davis MD Unavailable Unavailable Rajan Davis MD Unavailable Unavailable Rajan Davis MD Unavailable Unavailable Rajan Davis MD Unavailable Unavailable Rajan Davis MD Unavailable Unavailable Rajan Davis MD Unavailable Unavailable Rajan Davis MD Unavailable Unavailable Rajan Davis MD Unavailable Unavailable Rajan Davis MD Unavailable Unavailable Rajan Davis MD Unavailable Unavailable Rajan Davis MD Unavailable Unavailable Rajan Davis MD Unavailable Unavailable Rajan Davis MD Unavailable Unavailable Rajan Davis MD Unavailable Unavailable Rajan Davis MD Unavailable Unavailable Rajan Davis MD Unavailable Unavailable Rajan Davis MD Unavailable Unavailable Rajan Davis MD Unavailable Unavailable Rajan Davis MD Unavailable Unavailable Rajan Davis MD Unavailable Unavailable Rajan Davis MD Unavailable Unavailable Rajan Davis MD Unavailable Unavailable Rajan Davis MD Unavailable Unavailable Rajan Davis MD Unavailable Unavailable Rajan Davis MD Unavailable Unavailable Rajan Davis MD Unavailable Unavailable Rajan Davis MD Unavailable Unavailable Rajan Davis MD Unavailable Unavailable Rajan Davis MD Unavailable Unavailable Rajan Davis MD Unavailable Unavailable Rajan Davis MD Unavailable Unavailable Rajan Davis MD Unavailable Unavailable Rajan Davis MD Unavailable Unavailable Rajan Davis MD Unavailable Unavailable White, F Andrew MD Unavailable Unavailable White, F Andrew MD Unavailable Unavailable White, F Andrew MD Unavailable Unavailable White, F Andrew MD Unavailable Unavailable White, F Andrew MD Unavailable Unavailable White, F Andrew MD Unavailable Unavailable White, F Andrew MD Unavailable Unavailable White, F Andrew MD Unavailable Unavailable White, F Andrew MD Unavailable Unavailable White, F Andrew MD Unavailable Unavailable White, F Andrew MD Unavailable Unavailable White, F Andrew MD Unavailable Unavailable White, F Andrew MD Unavailable Unavailable White, F Andrew MD Unavailable Unavailable White, F Andrew MD Unavailable Unavailable White, F Andrew MD Unavailable Unavailable White, F Andrew MD Unavailable Unavailable White, F Andrew MD Unavailable Unavailable White, F Andrew MD Unavailable Unavailable White, F Andrew MD Unavailable Unavailable White, F Andrew MD Unavailable Unavailable White, F Andrew MD Unavailable Unavailable White, F Andrew MD Unavailable Unavailable White, F Andrew MD Unavailable Unavailable White, F Andrew MD Unavailable Unavailable White, F Andrew MD Unavailable Unavailable White, F Andrew MD Unavailable Unavailable White, F Andrew MD Unavailable Unavailable White, F Andrew MD Unavailable Unavailable Burgess, D Dasia BODY AND FENDER WORKER-C Unavailable Unavailable Burgess, D Dasia BODY AND FENDER WORKER-C Unavailable Unavailable Burgess, D Dasia BODY AND FENDER WORKER-C Unavailable Unavailable Burgess, D Dasia BODY AND FENDER WORKER-C Unavailable Unavailable Burgess, D Dasia BODY AND FENDER WORKER-C Unavailable Unavailable Burgess, D Dasia BODY AND FENDER WORKER-C Unavailable Unavailable Burgess, D Dasia BODY AND FENDER WORKER-C Unavailable Unavailable Re-disclosure Warning The records that you are about to access may contain information from federally-assisted alcohol or drug abuse programs. If such information is present, then the following federally mandated warning applies: This information has been disclosed to you from records protected by federal confidentiality rules (42 CFR part 2). The federal rules prohibit you from making any further disclosure of this information unless further disclosure is expressly permitted by the written consent of the person to whom it pertains or as otherwise permitted by 42 CFR part 2. A general authorization for the release of medical or other information is NOT sufficient for this purpose. The Federal rules restrict any use of the information to criminally investigate or prosecute any alcohol or drug abuse patient.The records that you are about to access may contain highly sensitive health information, the redisclosure of which is protected by Article 27-F of the [place] Public Health law. If you continue you may have access to information: Regarding HIV / AIDS; Provided by facilities licensed or operated by the [facility] Office of Mental Health; or Provided by the [facility] Office for People With Developmental Disabilities. If such information is present, then the following [facility] mandated warning applies: This information has been disclosed to you from confidential records which are protected by state law. State law prohibits you from making any further disclosure of this information without the specific written consent of the person to whom it pertains, or as otherwise permitted by law. Any unauthorized further disclosure in violation of state law may result in a fine or long term sentence or both. A general authorization for the release of medical or other information is NOT sufficient authorization for further disc losure. Family History Family Member Name Family Member Gender Family Member Status Date o f Status Description Data Source(s) Unknown Male Problem [facility] ([facility]) Unknown Unknown Problem [facility] ([facility]) MATERNAL GRANDFATHER Unknown Unknown Problem [facility] ([facility]) Unknown Unknown Problem [facility] ([facility] Encounters Encounter Providers Location Date Indications Data Source(s ) Outpatient Attender: Taty Wall 05/27 03:00:00 PM EDT [facility] ([facility] ) Outpatient Attender: Andrew Wall 05/04 11:30:00 AM EDT [facility] ([facility] ) Outpatient Attender: Dasia Burgess BODY AND FENDER WORKER-C Main Office 02/15/2021 09:15:00 AM EDT [facility] ([facility]) Outpatient Attender: Andrew Wall 12/27 01:30:00 PM EDT [facility] ([facility] ) Outpatient Attender: Andrew Wall 06/23 01:30:00 PM EDT [facility] ([facility] ) Immunizations Vaccine Date Status Description Data Source(s) This CVX code allows reporting of a vacc ination when formulation is unknown (for example, when recording a Influenza vaccination when noted on a vaccination card) 04/28/2020 10:37:00 AM EDT completed MEDEN T ([facility]) Medications Medication Brand Name Start Date Product Form Dose Route Admi nistrative Instructions Pharmacy Instructions Status Indications Reaction Description Data Source(s) 0.4 mg 06/08/2021 12:00:00 AM EDT capsule 60 TAKE TWO CAPSULES BY MOUTH EVERY DAY TAKE TWO CAPSULES BY MOUTH EVERY DAY SOLD: 06/10/2021 [facility] 25 mg 04/21/2021 12:00:00 AM EDT tablet 90 TAKE ONE TABLET BY MOUTH EVERY DAY TAKE ONE TABLET BY MOUTH EVERY DAY SOLD: 04/23/2021 [facility] 25 mg 03/26/2021 12:00:00 AM EDT tablet 90 TAKE ONE TABLET BY MOUTH EVERY DAY TAKE ONE TABLET BY MOUTH EVERY DAY SOLD: 03/28/2021 [facility] 0.5 mg 03/09/2021 12:00:00 AM EDT capsule 30 TAKE ONE CAPSULE BY MOUTH EVERY DAY TAKE ONE CAPSULE BY MOUTH EVERY DAY SOLD: 05/27/2021 [facility] 0.5 mg 03/09/2021 12:00:00 AM EDT capsule 30 TAKE ONE CAPSULE BY MOUTH EVERY DAY TAKE ONE CAPSULE BY MOUTH EVERY DAY SOLD: 04/21/2021 [facility] 0.5 mg 03/09/2021 12:00:00 AM EDT capsule 30 TAKE ONE CAPSULE BY MOUTH EVERY DAY TAKE ONE CAPSULE BY MOUTH EVERY DAY SOLD: 03/09/2021 [facility] Ketoconazole 20 MG/ML Topical Cream Ketoconazole 02/15/2021 12:00:00 AM EDT active [facility] ([facility] 2 % 02/15/2021 12:00:00 AM EDT cream 60 APPLY TO FACE SPARINGLY TWICE A DAY NEEDED FOR SCALP GLABELLA AND NASOLABIAL FOLDS APPLY TO FACE SPARINGLY TWICE A DAY NEEDED FOR SCALP GLABELLA AND NASOLABIAL FOLDS SOLD: 02/15/2021 [facility] 20 mg 12/09/2020 12:00:00 AM EDT tablet 16 TAKE ONE TABLET BY MOUTH EVERY DAY TAKE ONE TABLET BY MOUTH EVERY DAY SOLD: 03/09/2021 [facility] 20 mg 12/09/2020 12:00:00 AM EDT tablet 90 TAKE ONE TABLET BY MOUTH EVERY DAY TAKE ONE TABLET BY MOUTH EVERY DAY SOLD: 12/13/2020 [facility] 20 mg 12/09/2020 12:00:00 AM EDT tablet 30 TAKE ONE TABLET BY MOUTH EVERY DAY TAKE ONE TABLET BY MOUTH EVERY DAY SOLD: 04/21/2021 [facility] 20 mg 12/09/2020 12:00:00 AM EDT tablet 30 TAKE ONE TABLET BY MOUTH EVERY DAY TAKE ONE TABLET BY MOUTH EVERY DAY SOLD: 03/28/2021 [facility] 20 mg 12/09/2020 12:00:00 AM EDT tablet 30 TAKE ONE TABLET BY MOUTH EVERY DAY TAKE ONE TABLET BY MOUTH EVERY DAY SOLD: 05/27/2021 [facility] 20 mg 12/09/2020 12:00:00 AM EDT tablet 30 TAKE ONE TABLET BY MOUTH EVERY DAY TAKE ONE TABLET BY MOUTH EVERY DAY SOLD: 06/10/2021 [facility] 25 mg 11/30/2020 12:00:00 AM EDT tablet 29 TAKE ONE TABLET BY MOUTH EVERY DAY TAKE ONE TABLET BY MOUTH EVERY DAY SOLD: 03/01/2021 [facility] 25 mg 11/30/2020 12:00:00 AM EDT tablet 30 TAKE ONE TABLET BY MOUTH EVERY DAY TAKE ONE TABLET BY MOUTH EVERY DAY SOLD: 03/28/2021 [facility] 25 mg 11/30/2020 12:00:00 AM EDT tablet 90 TAKE ONE TABLET BY MOUTH EVERY DAY TAKE ONE TABLET BY MOUTH EVERY DAY SOLD: 11/30/2020 [facility] 0.4 mg 10/30/2020 12:00:00 AM EST capsule 60 TAKE TWO CAPSULES BY MOUTH EVERY DAY TAKE TWO CAPSULES BY MOUTH EVERY DAY SOLD: 11/01/2020 [facility] 0.4 mg 10/30/2020 12:00:00 AM EST capsule 60 TAKE TWO CAPSULES BY MOUTH EVERY DAY TAKE TWO CAPSULES BY MOUTH EVERY DAY SOLD: 04/21/2021 [facility] 0.4 mg 10/30/2020 12:00:00 AM EST capsule 60 TAKE TWO CAPSULES BY MOUTH EVERY DAY TAKE TWO CAPSULES BY MOUTH EVERY DAY SOLD: 11/30/2020 [facility] 0.4 mg 10/30/2020 12:00:00 AM EST capsule 60 TAKE TWO CAPSULES BY MOUTH EVERY DAY TAKE TWO CAPSULES BY MOUTH EVERY DAY SOLD: 12/23/2020 [facility] 0.4 mg 10/30/2020 12:00:00 AM EST capsule 60 TAKE TWO CAPSULES BY MOUTH EVERY DAY TAKE TWO CAPSULES BY MOUTH EVERY DAY SOLD: 03/09/2021 [facility] Covid-19 vaccine, Unspecified 10/06/2020 12:00:00 AM EST completed [facility] Medication administered onsite Covid-19 vaccine, Unspecified 09/08/2020 12:00:00 AM EST completed [facility]) Medication administered onsite 25 mg 08/15/2020 12:00:00 AM EST tablet 43 TAKE ONE TABLET BY MOUTH EVERY DAY TAKE ONE TABLET BY MOUTH EVERY DAY SOLD: 11/16/2020 [facility] 25 mg 08/15/2020 12:00:00 AM EST tablet 90 TAKE ONE TABLET BY MOUTH EVERY DAY TAKE ONE TABLET BY MOUTH EVERY DAY SOLD: 08/18/2020 [facility] 25 mg 06/04/2020 12:00:00 AM EDT tablet 90 TAKE ONE TABLET BY MOUTH EVERY DAY TAKE ONE TABLET BY MOUTH EVERY DAY SOLD: 06/06/2020 [facility] 25 mg 06/04/2020 12:00:00 AM EDT tablet 90 TAKE ONE TABLET BY MOUTH EVERY DAY TAKE ONE TABLET BY MOUTH EVERY DAY SOLD: 12/23/2020 [facility] 0.4 mg 05/12/2020 12:00:00 AM EDT capsule 60 TAKE TWO CAPSULES BY MOUTH EVERY DAY TAKE TWO CAPSULES BY MOUTH EVERY DAY SOLD: 06/18/2020 [facility] 0.4 mg 05/12/2020 12:00:00 AM EDT capsule 60 TAKE TWO CAPSULES BY MOUTH EVERY DAY TAKE TWO CAPSULES BY MOUTH EVERY DAY SOLD: 09/24/2020 [facility] 0.4 mg 05/12/2020 12:00:00 AM EDT capsule 60 TAKE TWO CAPSULES BY MOUTH EVERY DAY TAKE TWO CAPSULES BY MOUTH EVERY DAY SOLD: 09/02/2020 [facility] 0.4 mg 05/12/2020 12:00:00 AM EDT capsule 60 TAKE TWO CAPSULES BY MOUTH EVERY DAY TAKE TWO CAPSULES BY MOUTH EVERY DAY SOLD: 05/14/2020 [facility] 0.4 mg 05/12/2020 12:00:00 AM EDT capsule 60 TAKE TWO CAPSULES BY MOUTH EVERY DAY TAKE TWO CAPSULES BY MOUTH EVERY DAY SOLD: 08/01/2020 [facility] Tamsulosin hydrochloride 0.4 MG Oral Capsule Tamsulosin HCL 05/04/2020 12:00:00 AM EDT active [facility] ([facility]) 25 mg 03/13/2020 12:00:00 AM EDT tablet 90 TAKE ONE TABLET BY MOUTH EVERY DAY TAKE ONE TABLET BY MOUTH EVERY DAY SOLD: 09/24/2020 [facility] Losartan Potassium 25 MG Oral Tablet LOSARTAN POTASSIUM 12:00:00 AM EDT tablet 90 TAKE ONE TABLET BY MOUTH RAJESH RY DAY TAKE ONE TABLET BY MOUTH EVERY DAY SOLD: 06/18/2020 [facility] 0.5 mg 03/12/2020 12:00:00 AM EDT capsule 85 TAKE ONE CAPSULE BY MOUTH EVERY DAY TAKE ONE CAPSULE BY MOUTH EVERY DAY SOLD: 06/19/2020 [facility] 0.5 mg 03/12/2020 12:00:00 AM EDT capsule 90 TAKE ONE CAPSULE BY MOUTH EVERY DAY TAKE ONE CAPSULE BY MOUTH EVERY DAY SOLD: 09/30/2020 [facility] 0.5 mg 03/12/2020 12:00:00 AM EDT capsule 90 TAKE ONE CAPSULE BY MOUTH EVERY DAY TAKE ONE CAPSULE BY MOUTH EVERY DAY SOLD: 12/28/2020 [facility] 20 mg 01/08/2020 12:00:00 AM EDT tablet 90 TAKE ONE TABLET BY MOUTH EVERY DAY TAKE ONE TABLET BY MOUTH EVERY DAY SOLD: 07/12/2020 [facility] 20 mg 01/08/2020 12:00:00 AM EDT tablet 90 TAKE ONE TABLET BY MOUTH EVERY DAY TAKE ONE TABLET BY MOUTH EVERY DAY SOLD: 04/14/2020 [facility] 20 mg 01/08/2020 12:00:00 AM EDT tablet 90 TAKE ONE TABLET BY MOUTH EVERY DAY TAKE ONE TABLET BY MOUTH EVERY DAY SOLD: 09/24/2020 [facility] 0.4 mg 12/12/2019 12:00:00 AM EDT capsule 60 TAKE TWO CAPSULES BY MOUTH EVERY DAY TAKE TWO CAPSULES BY MOUTH EVERY DAY SOLD: 04/14/2020 [facility] Insurance Providers Payer name Policy type / Coverage type Policy ID Covered democrat ID Covered democrat's relationship to [place] Policy [place] Plan Information [facility] [id number] MEDICARE [id number] A Medicare Natl [facility] Medicare Primary [id number] Self [id number] Medicare [facility] Govt Servic Medicare Primary [id number] Self [id number] Medicare Natl Govt Servic Medicare Primary [id number] Self [id number] Medicare Natl Govt Servic Medicare Primary [id number] Self [id number] MEDICARE [id number] SP [id number] Medicare Natl Govt Servic Medicare Primary [id number] Self [id number] POMCO [id number] UNK2 [id number] POM[employer] [id number] SP [id number] [place] [id number] Self [id number] [place] Primary [id number] Self [id number] [place] Medicare Primary [id number] Self [id number] [place] Medicare Primary [id number] Self [id number] [place] Medicare Primary [id number] ..[id number] Self [id number] [place] (pr) Medigap Part B [id number] [id number] [place] Medicare Primary [id number] ..[id number] Self [id number] [place] (pr) Medigap Part B [id number] 528.0 [id number] [place] Medicare Primary [id number] Self [id number] [place] (pr) Medigap Part B [id number] 528.0 [id number] [place] (pr) Medigap Part B [id number] 528.0 [id number] Medicare [place] Medicare Primary [id number] Self [id number] [place] (pr) Medigap Part B [id number] 528.0 [id number] [place] Medicare Primary [id number] Self [id number] [place] (pr) Medigap Part B [id number] 528.0 [id number] Medicare [place] Medicare Primary [id number] Self [id number] [place] (pr) Medigap Part B [id number] 528.0 [id number] Medicare [place] Medicare Primary [id number] Self [id number] [place] (pr) Medigap Part B [id number] 528.0 [id number] Medicare [place] Medicare Primary [id number] Self [id number] [place] (pr) Medigap Part B [id number] Medicare [place] Medicare Primary [id number] Self POMCO [id number] SP [id number] UMR [facility] [id number] SP [id number] [place] Medigap Part B [id number] [id number] Self [id number] [employer] Other 0 [id number] Self 0 Umr (pr) Medigap Part B [id number] [id number] Self [id number] [place] Ppo Medigap Part B [id number] [id number] Self [id number] Umr (pr) Medigap Part B [id number] 14259.0 Self [id number] [place] Ppo Medigap Part B [id number]. 31677.0 Self [id number] Umr (pr) Medigap Part B [id number] 20995.0 Self [id number] [place] Ppo Medigap Part B [id number] [id number] Self [id number] [place]/Umr (Old) Medigap Part B [id number] Self [id number] Medicare [place]/NGS Medicare Primary [id number] Self [id number] Umr (pr) Medigap Part B [id number] Self [id number] [place] Medigap Part B [id number] 20.0 Self [id number] Medicare Natl Gov't Servi Medicare Primary [id number] Self Medicare Part B [facility] Other 0 [id number] Self 0 Medicare Natl Gov't Servi Medicare Primary [id number] Self [id number] [place] Medigap Part B [id number] 20.0 Self [id number] Umr [place] Ppo Medigap Part B [id number] Self [id number] Problems, Conditions, and Diagnoses No Information Surgeries/Procedures Procedure Description Date Indications Data Source(s) OFFICE OUTPATIENT VISIT 15 MINUTES 05/27/2021 12:00:00 AM EDT [facility] ([facility]) Impacted Cerumen Irrigat/Lavage 05/27/2021 12:00:00 AM EDT [facility] ([facility]) ECG ROUTINE ECG W/LEAST 12 LDS W/I&R 05/04/2021 12:00: 00 AM EDT [facility] ([facility]) OFFICE OUTPATIENT VISIT 25 MINUTES 05/04/2021 12:00:00 AM EDT [facility] ([facility]) Diabetic Retinal Eye Exam 04/18/2021 12:00:00 AM EDT [facility] ([facility]) DESTRUCTION PREMALIGNANT LESION 1ST 02/15/2021 12:00:0 0 AM EDT [facility] ([facility]) DESTRUCTION PREMALIGNANT LESION 2-14 EA 02/15/2021 12: 00:00 AM EDT [facility] ([facility]) OFFICE OUTPATIENT VISIT 25 MINUTES 02/15/2021 12:00:00 AM EDT [facility] ([facility]) OFFICE OUTPATIENT VISIT 25 MINUTES 12/27/2020 12:00:00 AM EDT [facility] ([facility]) Diabetic Retinal Eye Exam 10/18/2020 12:00:00 AM EST [facility] ([facility]) Results ID Date Data Source [id number] 05/27/2021 03:07:00 PM EDT [facility] ([facility]) Name Value Range Interpretation Code Description Data Denise rce(s) Supporting Document(s) Glucose [Mass/volume] in Serum or Plasma 115 mg/dL 74-99 [facility] ([facility]) 100-125 mg/dL PRE-DIABETES/FASTING >126 mg/dL DIABETES/FASTING Creatinine 1.2 mg/dL 0.6-1.3 [facility] Urea nitrogen [Mass/volume] in Serum or Plasma 22 mg/dL 7-18 [facility] ([facility]) Sodium [Moles/volume] in Serum or Plasma 140 meq/L 136-145 [facility] ([facility]) Chloride [Moles/volume] in Serum or Plasma 105 meq/L 98-107 [facility] ([facility]) Potassium [Moles/volume] in Serum or Plasma 3.7 meq/L 3.5-5.1 [facility] ([facility]) Carbon dioxide, total [Moles/volume] in Serum or Plasma 31 meq/L 21 -32 [facility] ([facility]) Calcium [Mass/volume] in Serum or Plasma 10.0 mg/dL 8.5-10.1 [facility] ([facility]) Glomerular filtration rate/1.73 sq M pre dicted among non-blacks [Volume Rate/Area] in Serum or Plasma by Creatinine-based formula (MDRD) 58 mL/min [facility] ([facility]) Glomerular filtration rate/1.73 sq M pre dicted among blacks [Volume Rate/Area] in Serum or Plasma by Creatinine-based formula (MDRD) Laboratory test result [facility] ([facility]) <content>CHRONIC KIDNEY DISEASE STAGING PER NKF</content>
<content></content>
<content>STAGE I & II GFR >= 60 NORMAL TO MILDLY DECREASED</content>
<content>STAGE III GFR 30-59 MODERATELY DECREASED</content>
<content>STAGE IV GFR 15-29 SEVERELY DECREASED</content>
<content>STAGE V GFR <15 VERY LITTLE GFR LEFT</content>
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
<content></content> ID Date Data Source [id number] 05/04/2021 12:54:00 PM EDT [facility] ([facility]) Name Value Range Interpretation Code Description Data Denise rce(s) Supporting Document(s) Leukocytes [#/volume] in Blood by Automated count 7.8 x10*3/UL 4.1-10 .9 [facility] ([facility]) Erythrocytes [#/volume] in Blood by Automated count 5.42 x10*6/UL 4.2 0-6.30 [facility] ([facility]) Hematocrit [Volume Fraction] of Blood by Automated count 48.1 % 3 7.0-51.0 [facility] ([facility]) Hemoglobin [Mass/volume] in Blood 16.5 g/dL 12.0-18.0 [facility] ([facility]) MCV 88.8 fL 80.0-97.0 [facility] ([facility]) MCHC 34.2 g/dL 31.0-38.0 [facility] ([facility]) MCH 30.4 pg 26.0-32.0 [facility] ([facility]) Erythrocyte distribution width [Ratio] by Automated count 13.4 % 11.6-13.7 [facility] ([facility]) Platelets [#/volume] in Blood by Automated count 191 x10*3/UL 140-440 [facility] ([facility]) MPV 8.4 FL 7.8-11.0 [facility]) Lymph % 22.4 % 10.0-58.5 [facility] Mid % 5.8 % 1.7-9.3 [facility] Neut % 71.8 % 37.0-92.0 [facility] Mid # 0.5 x10*3/UL 0.1-0.6 [facility] ([facility]) Lymph # 1.7 x10*3/UL 0.6-4.1 [facility] ([facility]) Neut # 5.6 x10*3/UL 2.0-7.8 [facility] ([facility]) ID Date Data Source [id number] 05/03/2021 08:09:00 AM EDT [facility] ([facility]) Name Value Range Interpretation Code Description Data Denise rce(s) Supporting Document(s) Prostate specific Ag [Mass/volume] in Serum or Plasma 0.41 ng/mL [facility] ([facility]) This assay was performed on the Siemens Dimension EXL using the B- Galactosidase/CPRG methodology and should not be compared interchangeably with other methods. The PSA should not be used alone as a screening test for the presence or absence of malignant disease. ID Date Data Source [id number] 05/03/2021 08:09:00 AM EDT [facility] ([facility]) Name Value Range Interpretation Code Description Data Denise rce(s) Supporting Document(s) Thyrotropin [Units/volume] in Serum or Plasma by Detec tion limit <= 0.05 mIU/L 3.14 uIU/mL 0.36-3.74 [facility] ([facility] ) Thyroxine (T4) free [Mass/volume] in Serum or Plasma 0.93 ng/dL 0.76- 1.46 [facility] ([facility]) ID Date Data Source [id number] 05/03/2021 08:09:00 AM EDT [facility] ([facility]) Name Value Range Interpretation Code Description Data Dneise rce(s) Supporting Document(s) Glucose [Mass/volume] in Serum or Plasma 173 mg/dL 74-99 [facility] ([facility]) 100-125 mg/dL PRE-DIABETES/FASTING >126 mg/dL DIABETES/FASTING Urea nitrogen [Mass/volume] in Serum or Plasma 21 mg/dL 7-18 [facility] ([facility]) Creatinine 1.2 mg/dL 0.6-1.3 [facility] ([facility]) Sodium [Moles/volume] in Serum or Plasma 141 meq/L 136-145 [facility] ([facility]) Potassium [Moles/volume] in Serum or Plasma 3.7 meq/L 3.5-5.1 [facility] ([facility]) Chloride [Moles/volume] in Serum or Plasma 103 meq/L 98-107 [facility] ([facility]) Carbon dioxide, total [Moles/volume] in Serum or Plasma 29 meq/L 21 -32 [facility] ([facility]) Calcium [Mass/volume] in Serum or Plasma 9.2 mg/dL 8.5-10.1 [facility] ([facility]) Alkaline phosphatase isoenzyme [Units/volume] in Serum or Pl asma 58 mg/dL 46-116 [facility] ([facility]) Aspartate aminotransferase [Enzymatic activity/volume] in Serum or Plasma 13 U/L 15-37 [facility] ([facility] ) Total Bilirubin 1.2 mg/dL 0.2-1.0 [facility] ([facility]) Alanine aminotransferase [Enzymatic activity/volume] in Seru m or Plasma 27 U/L 12-78 [facility] ([facility]) Albumin [Mass/volume] in Serum or Plasma 3.9 g/dL 3.4-5.0 [facility] ([facility]) A/G Ratio 1.11 CALC 1.00-1.90 [facility]) Proteinase 3 Ab [Units/volume] in Serum 7.4 g/dL 6.4-8.2 [facility] ([facility]) Glomerular filtration rate/1.73 sq M pre dicted among non-blacks [Volume Rate/Area] in Serum or Plasma by Creatinine-based formula (MDRD) 58 mL/min [facility] ([facility]) Glomerular filtration rate/1.73 sq M pre dicted among blacks [Volume Rate/Area] in Serum or Plasma by Creatinine-based formula (MDRD) Laboratory test result [facility] ([facility]) <content>CHRONIC KIDNEY DISEASE STAGING PER NKF</content>
<content></content>
<content>STAGE I & II GFR >= 60 NORMAL TO MILDLY DECREASED</content>
<content>STAGE III GFR 30-59 MODERATELY DECREASED</content>
<content>STAGE IV GFR 15-29 SEVERELY DECREASED</content>
<content>STAGE V GFR <15 VERY LITTLE GFR LEFT</content>
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
<content></content> ID Date Data Source [id number] 05/03/2021 08:09:00 AM EDT [facility]) Name Value Range Interpretation Code Description Data Denise rce(s) Supporting Document(s) Hemoglobin A1c/Hemoglobin.total in Blood 6.9 % [facility] ([facility]) Lab Result Notes: Pre-Diabetes 5.7 - 6.4 % Diabetes = or > 6.5% Glucose mean value [Mass/volume] in Blood Estimated fr om glycated hemoglobin 151 mg/dL 60-110 [facility] ([facility] ) ID Date Data Source [id number] 12/22/2020 07:44:00 AM EDT [facility]) Name Value Range Interpretation Code Description Data Denise rce(s) Supporting Document(s) Thyrotropin [Units/volume] in Serum or Plasma by Detec tion limit <= 0.05 mIU/L 3.59 uIU/mL 0.36-3.74 [facility] ([facility] ) ID Date Data Source [id number] 12/22/2020 07:44:00 AM EDT [facility]) Name Value Range Interpretation Code Description Data Denise rce(s) Supporting Document(s) Hemoglobin A1c/Hemoglobin.total in Blood 7.0 % [facility] ([facility]) Lab Result Notes: Pre-Diabetes 5.7 - 6.4 % Diabetes = or > 6.5% Glucose mean value [Mass/volume] in Blood Estimated fr om glycated hemoglobin 154 mg/dL 60-110 [facility] ([facility] ) ID Date Data Source [id number] 12/22/2020 07:44:00 AM EDT [facility] ([facility]) Name Value Range Interpretation Code Description Data Denise rce(s) Supporting Document(s) Cholesterol [Mass/volume] in Serum or Plasma 154 mg/dL 131-200 [facility] ([facility]) Triglyceride [Mass/volume] in Serum or Plasma 143 mg/dL 30-150 [facility] ([facility]) Cholesterol in LDL [Mass/volume] in Serum or Plasma by calcu lation 78 CALC 50-159 [facility] ([facility]) Cholesterol in HDL [Mass/volume] in Serum or Plasma 47 mg/dL 35-60 [facility] ([facility]) ID Date Data Source [id number] 12/22/2020 07:44:00 AM EDT [facility] ([facility]) Name Value Range Interpretation Code Description Data Denise rce(s) Supporting Document(s) Glucose [Mass/volume] in Serum or Plasma 131 mg/dL 74-99 [facility] ([facility]) 100-125 mg/dL PRE-DIABETES/FASTING >126 mg/dL DIABETES/FASTING Urea nitrogen [Mass/volume] in Serum or Plasma 24 mg/dL 7-18 [facility] ([facility]) Sodium [Moles/volume] in Serum or Plasma 140 meq/L 136-145 [facility] ([facility]) Creatinine 1.1 mg/dL 0.6-1.3 [facility] Potassium [Moles/volume] in Serum or Plasma 3.8 meq/L 3.5-5.1 [facility] ([facility]) Chloride [Moles/volume] in Serum or Plasma 103 meq/L 98-107 [facility] ([facility]) Calcium [Mass/volume] in Serum or Plasma 9.2 mg/dL 8.5-10.1 [facility] ([facility]) Carbon dioxide, total [Moles/volume] in Serum or Plasma 28 meq/L 21 -32 [facility] ([facility]) Alkaline phosphatase isoenzyme [Units/volume] in Serum or Pl asma 55 mg/dL 46-116 [facility] ([facility]) Total Bilirubin 1.2 mg/dL 0.2-1.0 [facility] ([facility]) Aspartate aminotransferase [Enzymatic activity/volume] in Serum or Plasma 16 U/L 15-37 [facility] ([facility] ) Alanine aminotransferase [Enzymatic activity/volume] in Seru m or Plasma 28 U/L 12-78 [facility] ([facility]) Albumin [Mass/volume] in Serum or Plasma 4.4 g/dL 3.4-5.0 [facility] ([facility]) Proteinase 3 Ab [Units/volume] in Serum 7.9 g/dL 6.4-8.2 [facility] ([facility]) A/G Ratio 1.26 CALC 1.00-1.90 [facility] ([facility]) Glomerular filtration rate/1.73 sq M pre dicted among non-blacks [Volume Rate/Area] in Serum or Plasma by Creatinine-based formula (MDRD) Laboratory test result [facility] ([facility] ) Glomerular filtration rate/1.73 sq M pre dicted among blacks [Volume Rate/Area] in Serum or Plasma by Creatinine-based formula (MDRD) Laboratory test result [facility] ([facility]) <content>CHRONIC KIDNEY DISEASE STAGING PER NKF</content>
<content></content>
<content>STAGE I & II GFR >= 60 NORMAL TO MILDLY DECREASED</content>
<content>STAGE III GFR 30-59 MODERATELY DECREASED</content>
<content>STAGE IV GFR 15-29 SEVERELY DECREASED</content>
<content>STAGE V GFR <15 VERY LITTLE GFR LEFT</content>
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
<content></content> ID Date Data Source [id number] 12/22/2020 07:44:00 AM EDT [facility] ([facility]) Name Value Range Interpretation Code Description Data Denise rce(s) Supporting Document(s) Hemoglobin A1c/Hemoglobin.total in Blood Laboratory test result [facility] ([facility]) Thyrotropin [Units/volume] in Serum or Plasma by Detec tion limit <= 0.05 mIU/L Laboratory test result [facility] ([facility]) ID Date Data Source [id number] 06/16/2020 10:29:00 AM EDT [facility] ([facility]) Name Value Range Interpretation Code Description Data Denise rce(s) Supporting Document(s) Urine Creatinine 103.3 mg/dL 30.0-125.0 [facility] ([facility]) Microalbumin Urine 23.5 mg/L 1.3-20.0 [facility] ([facility]) Microalb/Creat Ratio 22.7 ug/mg 0.0-30.0 [facility] ( [facility]) ID Date Data Source [id number] 06/16/2020 10:29:00 AM EDT [facility] ([facility]) Name Value Range Interpretation Code Description Data Denise rce(s) Supporting Document(s) Thyrotropin [Units/volume] in Serum or Plasma by Detec tion limit <= 0.05 mIU/L 2.78 uIU/mL 0.36-3.74 [facility] ([facility] ) ID Date Data Source [id number] 06/16/2020 10:29:00 AM EDT [facility] ([facility]) Name Value Range Interpretation Code Description Data Denise rce(s) Supporting Document(s) Cholesterol [Mass/volume] in Serum or Plasma 161 mg/dL 131-200 [facility] ([facility]) Triglyceride [Mass/volume] in Serum or Plasma 171 mg/dL 30-150 [facility] ([facility]) Cholesterol in HDL [Mass/volume] in Serum or Plasma 41 mg/dL 35-60 [facility] ([facility]) Cholesterol in LDL [Mass/volume] in Serum or Plasma by calcu lation 86 CALC 50-159 [facility] ([facility]) ID Date Data Source [id number] 06/16/2020 10:29:00 AM EDT [facility] ([facility]) Name Value Range Interpretation Code Description Data Denise rce(s) Supporting Document(s) Glucose [Mass/volume] in Serum or Plasma 124 mg/dL 74-99 [facility] ([facility]) 100-125 mg/dL PRE-DIABETES/FASTING >126 mg/dL DIABETES/FASTING Urea nitrogen [Mass/volume] in Serum or Plasma 22 mg/dL 7-18 [facility] ([facility]) Creatinine 1.2 mg/dL 0.6-1.3 [facility] ([facility]) Sodium [Moles/volume] in Serum or Plasma 140 meq/L 136-145 [facility] ([facility]) Potassium [Moles/volume] in Serum or Plasma 4.1 meq/L 3.5-5.1 [facility] ([facility]) Chloride [Moles/volume] in Serum or Plasma 102 meq/L 98-107 [facility] ([facility]) Carbon dioxide, total [Moles/volume] in Serum or Plasma 29 meq/L 21 -32 [facility] ([facility]) Calcium [Mass/volume] in Serum or Plasma 9.6 mg/dL 8.5-10.1 [facility] ([facility]) Total Bilirubin 1.0 mg/dL 0.2-1.0 [facility] ([facility]) Alkaline phosphatase isoenzyme [Units/volume] in Serum or Pl asma 50 mg/dL 46-116 [facility] ([facility]) Alanine aminotransferase [Enzymatic activity/volume] in Seru m or Plasma 27 U/L 12-78 [facility] ([facility]) Aspartate aminotransferase [Enzymatic activity/volume] in Serum or Plasma 16 U/L 15-37 [facility] ([facility] ) Proteinase 3 Ab [Units/volume] in Serum 7.5 g/dL 6.4-8.2 [facility] ([facility]) A/G Ratio 1.27 CALC 1.00-1.90 [facility] Glomerular filtration rate/1.73 sq M pre dicted among non-blacks [Volume Rate/Area] in Serum or Plasma by Creatinine-based formula (MDRD) 58 mL/min [facility] ([facility]) Albumin [Mass/volume] in Serum or Plasma 4.2 g/dL 3.4-5.0 [facility] ([facility]) Glomerular filtration rate/1.73 sq M pre dicted among blacks [Volume Rate/Area] in Serum or Plasma by Creatinine-based formula (MDRD) Laboratory test result [facility] ([facility]) <content>CHRONIC KIDNEY DISEASE STAGING PER NKF</content>
<content></content>
<content>STAGE I & II GFR >= 60 NORMAL TO MILDLY DECREASED</content>
<content>STAGE III GFR 30-59 MODERATELY DECREASED</content>
<content>STAGE IV GFR 15-29 SEVERELY DECREASED</content>
<content>STAGE V GFR <15 VERY LITTLE GFR LEFT</content>
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
<content></content> ID Date Data Source [id number] 06/16/2020 10:29:00 AM EDT [facility]) Name Value Range Interpretation Code Description Data Denise rce(s) Supporting Document(s) Glucose mean value [Mass/volume] in Blood Estimated fr om glycated hemoglobin 143 mg/dL 60-110 [facility] ([facility] ) Hemoglobin A1c/Hemoglobin.total in Blood 6.6 % [facility]) Lab Result Notes: Pre-Diabetes 5.7 - 6.4 % Diabetes = or > 6.5% Procedure Social History Code Duration Value Status Description Data Source(s ) Smoking 03/18/2021 02:04:58 PM EDT Never smoked tobacco (findi ng) completed Never smoked tobacco (finding) MISTY (Aung Cevallos MD [facility]) Vital Signs ID Date Data Source UNK Name Value Range Interpretation Code Description Data Source(s) Diastolic blood pressure--supine 72 mm[Hg] 72 mm[Hg] [facility] ([facility]) Systolic blood pressure--sitting 140 mm[Hg] 140 mm[Hg] [facility] ([facility]) Diastolic blood pressure--sitting 70 mm[Hg] 70 mm[Hg] [facility] ([facility]) Systolic blood pressure--standing 120 mm[Hg] 12 0 mm[Hg] [facility] ([facility]) Diastolic blood pressure--standing 70 mm[Hg] 7 0 mm[Hg] [facility] ([facility]) Heart rate 94 /min 94 /min [facility] ([facility]) Body height 65 [in_i] 65 [in_i] [facility] ([facility]) 5'5" Systolic blood pressure 120 mm[Hg] 120 mm[Hg] M [facility] ([facility]) Diastolic blood pressure 80 mm[Hg] 80 mm[Hg] [facility] ([facility]) Systolic blood pressure--supine 130 mm[Hg] 130 mm[Hg] [facility] ([facility]) Body weight 186.00 [lb_av] 186.00 [lb_av] [facility] ([facility]) Oxygen saturation in Arterial blood by Pulse oximetry 95 % 95 % [facility] ([facility]) Body mass index (BMI) [Ratio] 30.9 kg/m2 30.9 k g/m2 [facility] ([facility]) Heart rate 84 /min 84 /min [facility] ([facility]) Body mass index (BMI) [Ratio] 30.4 kg/m2 30.4 k g/m2 [facility] ([facility]) Systolic blood pressure 110 mm[Hg] 110 mm[Hg] [facility] ([facility]) Diastolic blood pressure 70 mm[Hg] 70 mm[Hg] [facility] ([facility]) Body height 65 [in_i] 65 [in_i] [facility] ([facility]) 5'5" Body weight 183.00 [lb_av] 183.00 [lb_av] [facility] ([facility]) Oxygen saturation in Arterial blood by Pulse oximetry 96 % 96 % [facility] ([facility]) Systolic blood pressure 132 mm[Hg] 132 mm[Hg] [facility] ([facility] Diastolic blood pressure 80 mm[Hg] 80 mm[Hg] [facility] ([facility]) Body weight 180.00 [lb_av] 180.00 [lb_av] [facility] ([facility]) Respiratory rate 18 /min 18 /min [facility] ( [facility]) Oxygen saturation in Arterial blood by Pulse oximetry 93 % 93 % [facility] ([facility]) RM Air Systolic blood pressure 100 mm[Hg] 100 mm[Hg] M [facility] ([facility]) Diastolic blood pressure 55 mm[Hg] 55 mm[Hg] [facility] ([facility]) Heart rate 101 /min 101 /min [facility] ([facility]) Body height 65 [in_i] 65 [in_i] [facility] ([facility]) 5'5" Body weight 189.38 [lb_av] 189.38 [lb_av] [facility] ([facility]) Body mass index (BMI) [Ratio] 31.5 kg/m2 31.5 k g/m2 [facility] ([facility]) Systolic blood pressure 132 mm[Hg] 132 mm[Hg] [facility] ([facility]) Diastolic blood pressure 68 mm[Hg] 68 mm[Hg] [facility] ([facility]) Body weight 185.00 [lb_av] 185.00 [lb_av] [facility] Body temperature 97.2 [degF] 97.2 [degF] [facility] ([facility]) Systolic blood pressure 138 mm[Hg] 138 mm[Hg] [facility] ([facility]) Diastolic blood pressure 80 mm[Hg] 80 mm[Hg] [facility] ([facility]) Heart rate 78 /min 78 /min [facility] ([facility]) Body height 65 [in_i] 65 [in_i] [facility] ([facility]) 5'5" Body weight 189.00 [lb_av] 189.00 [lb_av] [facility] ([facility]) Body mass index (BMI) [Ratio] 31.4 kg/m2 31.4 k g/m2 [facility] ([facility])
--- OUTSIDE RECORDS SUMMARY | 2021-06-14 12:05 | CCD ---
Author Author Aung Teague MD [facility] Organization Aung Teague MD [facility] Address [address] [address] Phone Care Team Providers Care Chair Inspector Name Role Phone Jai Chaudhary DO Unavailable [phone] Andrew Davis MD PP [phone] Reason for Referral No Reason for Referral Recorded Problems Includes: Active, inactive, and resolved Problems All Visits Onset Date - Time Resolved Date - Time Provider Co ndition Status Strabismus Non-paralytic Esotropia Alternating 07/18/2019 - 12:0 0AM Jai Chaudhary DO Active Essential Hypertension 01/20/2016 - 12:00AM Aung Anderson MD, FACS Active Conjunctivitis Chronic Allergic 04/08/2015 - 12:00AM Aung Teague MD, FACS Active Note: Unchanged Retinopathy Hypertensive Both Eyes 04/08/2015 - 12:00AM Aung Teague MD, FACS Active Note: Unchanged Cataract Senile Cortical 07/02/2014 - 12:00AM Unknown - Unknown Jai Chaudhary DO Resolved Note: Unchanged - of both ey es Macular Pseudohole Left Eye 07/02/2014 - 12:00AM Aung Teague MD, FACS Active Note: Unchanged Cataract Senile Nuclear 12/16/2013 - 12:00AM Unknown - Unknown Funmi Chaudhary DO Resolved Note: Unchanged - of both ey es Cataract Senile Cortical Anterior 06/12/2013 - 12:00AM Aung Teague MD, FACS Inactive Note: Unchanged - of both ey es Dermatochalasis Both Eyelids 12/04/2012 - 12:00AM Aung Teague MD, FACS Active Note: Unchanged Macular Puckering Both Eyes 12/04/2012 - 12:00AM Aung Teague MD, FACS Active Note: Unchanged Macular Degeneration Nonexudative Dry 12/04/2012 - 12:00AM Aung Teague MD, FACS Active Note: Unchanged - of both ey es Cataract Senile Posterior Subcapsular Polar 12/04/2012 - 12: 00AM Unknown - Unknown Jai Chaudhary DO Resolved Note: Unchanged - of both ey es Dry Eye Syndrome Both Eyes 12/04/2012 - 12:00AM Aung Teague MD, FACS Active Note: Unchanged Vitreous Floaters Both Eyes 12/04/2012 - 12:00AM Aung Teague MD, FACS Active Note: Unchanged Plan of Treatment Referrals To Diagnosis Referral to Dr. Neena Teague MD, FACS Poste rior subcapsular polar age-related cataract, bilateral Referral to [facility] Aung Teague MD, FACS Nexdtve age -related [facility], bilateral, intermed dry stage Findings Encounter Date Ordered optical coherence tomography An OCT Retina is indicated for macular degeneration to evaluate the several layers of the retina to determine whether or not there are any retinal defects such as edema, holes, or retinal pigment atrophy Cataract Evaluation with Jai Chaudhary DO 12/06/19 17 Requested Referred to: Dr. Chaudhary 10 Month Follow- Up with Aung Cevallos MD, FACS 10/25/2016 Assessments Includes: Assessments for all patient encounters Findings Encounter Date Alternating esotropia 3 - 4 Week Follow-Up with Jai qureshi DO 07/18/2019 Esophoria TRIAGE NON URGENT LEVEL 1 with Jai Wright [facility] DO 06/25/2019 Assessment of macular puckering was observed in both e yes 9 Month Follow-Up with Jai Chaudhary DO 03/19/2019 Early dry stage nonexudative macular degeneration of b oth eyes 9 Month Follow-Up with Jai Chaudhary DO 03/19/2019 Essential hypertension 9 Month Follow-Up with Jai hurst DO 03/19/2019 Macular pseudohole in the left eye 9 Month Follow-Up with Ray Chaudhary DO 03/19/2019 Assessment of macular puckering was observed in both e yes 1 Year Follow-Up with Jai Chaudhary DO 05/22/2018 Dry eye syndrome of both eyes 1 Year Follow-Up with Jai Chaudhary DO 05/22/2018 Essential hypertension 1 Year Follow-Up with Jai Castellanos in DO 05/22/2018 Intermediate dry stage nonexudative macular degenerati on of both eyes 1 Year Follow-Up with Jai Chaudhary DO 05/22/2018 Macular pseudohole in the left eye 1 Year Follow-Up with Thiago rascon Neena DO 05/22/2018 Bilateral hypermetropia 3 - 4 WK Post CAT SX with Jai San instein DO 05/25/2017 Pseudophakia 3 - 4 WK Post CAT SX with Jai Gross ein DO 05/25/2017 Nuclear senile cataract 1 Week Post OP with Jai deshpande DO 04/20/2017 Pseudophakia in the left eye 1 Week Post OP with Jai kirby DO 04/20/2017 Nuclear senile cataract PRE OP WITH TESTING with Jai kirby DO 04/03/2017 Arcus senilis was observed Cataract Evaluation with Jai Chaudhary DO 12/05/2016 Dry eye syndrome Cataract Evaluation with Jai Castellanos in 12/05/2016 Essential (primary) hypertension Cataract Evaluation with Ray miguel [facility] DO 12/05/2016 Intermediate dry stage nonexudative macular degenerati on of both eyes Cataract Evaluation with Jai Chaudhary 12/05/2016 Macular puckering Cataract Evaluation with Jai Castellanos in 12/05/2016 Nuclear senile cataract Cataract Evaluation with Jai kirby DO 12/05/2016 Vitreous degeneration Cataract Evaluation with Jai parish DO 12/05/2016 Bilateral cortical senile cataract 10 Month Follow-Up with Aung Teague MD, FACS 10/25/2016 Essential hypertension 10 Month Follow-Up with Aung Larry MD, FACS 10/25/2016 Intermediate dry stage nonexudative macular degenerati on of both eyes 10 Month Follow-Up with Aung Teague MD, FACS 10/25/2016 Macular puckering of both eyes 10 Month Follow-Up with Aung Teague MD, FACS 10/25/2016 Nuclear senile cataract 10 Month Follow-Up with Aung Chaudhry MD, FACS 10/25/2016 Posterior subcapsular polar senile cataract 10 Month F ollow-Up with Aung Teague MD, FACS 10/25/2016 Assessment of macular puckering was observed in both e yes 9 Month Follow-Up with Aung Teague MD, FACS 01/20/2016 Cortical senile cataract 9 Month Follow-Up with Aung Chaudhry MD, FACS 01/20/2016 Essential hypertension 9 Month Follow-Up with Aung Smith MD, FACS 01/20/2016 Macular pseudohole in the left eye 9 Month Follow-Up w ith Aung Teague MD, FACS 01/20/2016 Nonexudative age-related macular degeneration of both eyes 9 Month Follow-Up with Aung Teague MD, FACS 01/20/2016 Nuclear senile cataract 9 Month Follow-Up with Aung Larry MD, FACS 01/20/2016 Posterior subcapsular polar senile cataract 9 Month Fo llow-Up with Aung Teague MD, FACS 01/20/2016 Chronic allergic conjunctivitis both eyes 9 Month Fol low-Up with Testing with Aung Teague MD, FACS 04/08/2015 Cortical senile cataract both eyes 9 Month Follow-Up with Testing with Aung Teague MD, FACS 04/08/2015 Dermatochalasis of both eyes upper and lower lids 9 M onth Follow-Up with Testing with Aung Taegue MD, FACS 04/08/2015 Dry eye syndrome of both eyes 9 Month Follow-Up with T esting with Aung Teague MD, FACS 04/08/2015 Dry nonexudative macular degeneration both eyes 9 Mon th Follow-Up with Testing with Aung Teague MD, FACS 04/08/2015 Hypertensive retinopathy of both eyes 9 Month Follow-U p with Testing with Aung Teague MD, FACS 04/08/2015 Macular pseudohole in the left eye 9 Month Follow-Up w ith Testing with Aung Teague MD, FACS 04/08/2015 Macular puckering of both eyes 9 Month Follow-Up with Testing with Aung Teague MD, FACS 04/08/2015 Nuclear senile cataract both eyes 9 Month Follow-Up w ith Testing with Aung Teague MD, FACS 04/08/2015 Posterior subcapsular polar senile cataract both eyes 9 Month Follow-Up with Testing with Aung Teague MD, FACS 04/08/2015 Vitreous floaters in both eyes 9 Month Follow-Up with Testing with Aung Teague MD, FACS 04/08/2015 Cortical senile cataract both eyes 6 Month Follow-Up with Aung Teague MD, FACS 07/02/2014 Dermatochalasis of both eyes upper and lower lids 6 M onth Follow-Up with Aung Teague MD, FACS 07/02/2014 Dry eye syndrome of both eyes 6 Month Follow-Up with Valeria Teague MD, FACS 07/02/2014 Dry nonexudative macular degeneration both eyes 6 Mon th Follow-Up with Aung Teague MD, FACS 07/02/2014 Macular pseudohole in the left eye 6 Month Follow-Up w ith Aung Teague MD, FACS 07/02/2014 Macular puckering of both eyes 6 Month Follow-Up with Aung Teague MD, FACS 07/02/2014 Nuclear senile cataract both eyes 6 Month Follow-Up w ith Aung Teague MD, FACS 07/02/2014 Posterior subcapsular polar senile cataract both eyes 6 Month Follow-Up with Aung Teague MD, FACS 07/02/2014 Vitreous floaters in both eyes 6 Month Follow-Up with Aung Teague MD, FACS 07/02/2014 Anterior cortical senile cataract of both eyes 6 Alcides h Follow-Up with OCT Retina with Aung Teague MD, FACS 12/16/2013 Dermatochalasis of both eyes 6 Month Follow-Up with OC T Retina with Aung Teague MD, FACS 12/16/2013 Dry eye syndrome of both eyes 6 Month Follow-Up with O CT Retina with Aung Teague MD, FACS 12/16/2013 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 6 Month Follow-Up with OCT Retina with Aung Teague MD, FACS 12/16/2013 Macular puckering of both eyes 6 Month Follow-Up with OCT Retina with Aung Teague MD, FACS 12/16/2013 Nuclear senile cataract of both eyes 6 Month Follow-U p with OCT Retina with Aung Teague MD, FACS 12/16/2013 Posterior subcapsular polar senile cataract of both e yes 6 Month Follow-Up with OCT Retina with Aung Teague MD, FACS 12/16/2013 Vitreous floaters in both eyes 6 Month Follow-Up with OCT Retina with Aung Teague MD, FACS 12/16/2013 Anterior cortical senile cataract of both eyes 6 Alcides h Follow-Up with Aung Teague MD, FACS 06/12/2013 Dermatochalasis of both eyes 6 Month Follow-Up with Roberth Teague MD, FACS 06/12/2013 Dry eye syndrome of both eyes 6 Month Follow-Up with Valeria Teague MD, FACS 06/12/2013 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 6 Month Follow-Up with Aung Teague MD, FACS 06/12/2013 Macular puckering of both eyes 6 Month Follow-Up with Aung Teague MD, FACS 06/12/2013 Posterior subcapsular polar senile cataract of both e yes 6 Month Follow-Up with Aung Teague MD, FACS 06/12/2013 Vitreous floaters in both eyes 6 Month Follow-Up with Aung Teague MD, FACS 06/12/2013 Dermatochalasis of both eyes 4 Month Follow-Up with Roberth Teague MD, FACS 12/04/2012 Dry eye syndrome of both eyes 4 Month Follow-Up with Valeria Teague MD, FACS 12/04/2012 Dry nonexudative macular degeneration 4 Month Follow-U p with Aung Teague MD, FACS 12/04/2012 Macular puckering of both eyes 4 Month Follow-Up with Aung Teague MD, FACS 12/04/2012 Posterior subcapsular polar senile cataract 4 Month Fo llow-Up with Aung Teague MD, FACS 12/04/2012 Vitreous floaters in both eyes 4 Month Follow-Up with Aung Teague MD, FACS 12/04/2012 Instructions Instructions not supported for this document typeNo Instructions Recorded Medical Equipment - Implanted Devices Includes: Current and historical DevicesNo Medical Equipment Recorded Medications Includes: Current and historical Medications Current Medications (continue as prescribed) Ocuvite Adult Formula Oral Capsule 05/22/2018 Provi daily: Diagnosis: PreserVision AREDS Oral Capsule 03/20/2017 Provider : Diagnosis: Lisinopril 5MG Oral Tablet 10/25/2016 Provider: Diagnosis: Lutein 20MG Oral Tablet 10/25/2016 Provider: Diagnosis: Dutasteride 0.5MG Oral Capsule 10/25/2016 Provider: Diagnosis: Tamsulosin HCl 0.4MG Oral Capsule 10/25/2016 Provid er: Diagnosis: Pravastatin Sodium 20 MG Tablet 04/08/2015 Provider : Diagnosis: hydroCHLOROthiazide 25 MG TABS 06/12/2013 Provider: Diagnosis: Past Medications on file BromSite 0.075% Ophthalmic Solution 04/03/2017 - 06/02/2017 Provider: Jai Chaudhary DO Diagnosis: Age-related nuclear cataract, right eye three days prior to surgery start one drop two times a day i n the right eye Besivance 0.6% Ophthalmic Suspension 04/03/2017 - 06/02/2017 Provider: Jai Chaudhary DO Diagnosis: Age-related nuclear cataract, right eye three days prior to surgery start one drop three times a day right eye Pred Forte 1% Ophthalmic Suspension 04/03/2017 - 06/02/2017 Provider: Jai Chaudhary DO Diagnosis: Age-related nuclear cataract, right eye day of surgery remove patch start one drop four times a day in the right eye Avodart 0.5MG Oral Capsule 03/20/2017 - 05/22/2018 Provider: Diagnosis: Flomax 0.4MG Oral Capsule 10/25/2016 - 05/22/2018 Provider: Diagnosis: Lutein 10 MG Tablet 04/08/2015 - 10/25/2016 Provider: Diagnosis: Aspirin 81 MG Tablet 04/08/2015 - 03/20/2017 Provider: Diagnosis: Lisinopril 10 MG Tablet 04/08/2015 - 10/25/2016 Provider: Diagnosis: Flomax 0.4 MG Capsule, conventional 04/08/2015 - 10/25/2016 Provider: Diagnosis: Avodart 0.5 MG Capsule, conventional 04/08/2015 - 10/25/2016 Provider: Diagnosis: Vitamin D2 5000 MG OR TABS 12/16/2013 - 04/08/2015 Provider: Diagnosis: 1.25 mg 50,000 units once a week Captopril-hydroCHLOROthiazide 25-25 MG TABS 06/12/2013 - Provider: Diagnosis: Aspirin 81 MG OR TABS 06/12/2013 - 04/08/2015 Provider: Diagnosis: Pravastatin Sodium 20 MG OR TABS 06/12/2013 - 04/08/2015 Pro vider: Diagnosis: [facility] Vitamin D3 400 UNIT OR CAPS 06/12/2013 - 12/16/2013 Prov ider: Diagnosis: Avodart 0.5 MG OR CAPS 12/04/2012 - 04/08/2015 Provider: Diagnosis: Lisinopril 10 MG OR TABS 12/04/2012 - 04/08/2015 Provider: Diagnosis: Flomax 0.4 MG OR CAPS 12/04/2012 - 04/08/2015 Provider: Diagnosis: [facility] Vitamin D 2000 UNIT OR CAPS 12/04/2012 - 06/12/2013 Prov ider: Diagnosis: Lutein 10 MG OR TABS 12/04/2012 - 04/08/2015 Provider: Diagnosis: Medications Administered Includes: Administered Medications in patient's chartNo Administered Medications Recorded Vital Signs Includes: Vital Signs from 03/18/2020 through 03/18/2021No Vital Signs Recorded For Specified Dates Results Includes: Results from 03/18/2020 through 03/18/2021No Results Recorded For Specified Dates History of Present Illness History of Present Illness not supported for this document typeNo History of Present Illness Recorded Social History Description Last Updated No consumption of alcohol 12/05/2016 No tobacco use 12/05/2016 Not using drugs 12/05/2016 Smoking status : Never smoker 12/05/2016 In grade 13-16 (college) 06/12/2013 Not using alcohol 06/12/2013 Owns home 06/12/2013 Retired 06/12/2013 Single 06/12/2013 Procedures and Surgical History Surgical History Last Updated Surgical / procedural history : Removal of skin cancer s 04/08/2015 Medical History Includes: Medical History in patient's chart Description Last Updated History of essential hypertension 12/05/2016 No recent change in medical history 12/16/2013 Reported medical history : Past BCC and SCC, Hearing L oss, Prostate Problems 06/12/2013 History of hypertension 06/12/2013 Currently wearing eyeglasses 12/04/2012 History of hyperlipidemia 12/04/2012 Family History Includes: Family History in patient's chart Description Last Updated Fraternal history of glaucoma 12/05/2016 Fraternal history of hypertension 12/05/2016 Maternal history of blindness 12/05/2016 Maternal history of cataract 12/05/2016 Maternal history of macular degeneration 12/05/2016 Paternal history of family history of cancer 7 Sororal history of family history of cancer 12/05/2016 Family medical history was unknown 04/08/2015 0 children 06/12/2013 2 brother(s) living 06/12/2013 3 siblings born 06/12/2013 Father - Prostate Cancer 06/12/2013 Mother - Disease 06/12/2013 Review of Systems Review of Systems not supported for this document typeNo Review of Systems Recorded Mental Status Mental Status not supported for this document type Description Oriented to time, place, and person Functional Status Functional Status not supported for this document typeNo Functional Status Recorded Physical Exam Physical Exam not supported for this document typeNo Physical Exam Recorded Immunizations Includes: Immunizations in patient's chartNo Immunizations Recorded Allergies Includes: Active, inactive, and resolved AllergiesNo Known Allergies Encounters Includes: Encounters from 03/18/2020 through 03/18/2021No Encounters Recorded For Specified Dates Insurance Includes: Active Insurance Policies Plan Name Member ID Group # Subscriber Relationship Effective Da nicole 1 - Medicare Part B [facility] ([facility]) [id number] Albert Call 2 - [employer] Care [employer] /PRIOR AUTHS NEEDED [id number] Fra ncimady R May Self Advance Directives Includes: Current Advance DirectivesNo Advance Directives Recorded Health Concerns Includes: Active Health ConcernsNo Active Health Concerns Recorded Goals Includes: Active GoalsNo Active Goals Recorded Interventions Includes: Interventions for active GoalsNo Interventions Recorded Evaluations & Outcomes Includes: Evaluations & Outcomes for active GoalsNo Outcomes Recorded
[2021-06-14 13:14] LABS: BASO # 0.1 10^3/uL (0.0-0.2); BASO % 0.8 % (0.0-1.0); EOS # 0.2 10^3/uL (0.0-0.5); EOS % 2.4 % (0.0-3.0); HEMATOCRIT 47.1 % (42.0-52.0); LYMPH % 29.5 % (24.0-44.0); MEAN CORPUSCULAR HEMOGLOBIN 30.5 pg (27.0-33.0); MEAN CORPUSCULAR VOLUME 89.9 fl (80.0-96.0); MONO # 0.6 10^3/uL (0.0-0.8); MONO % 9.4 % (2.0-8.0); NEUTROPHILS # 3.8 10^3/uL (1.5-8.5); NEUTROPHILS % 57.3 % (36.0-66.0); PLATELET COUNT, AUTOMATED 180 10^3/uL (150-450); RED BLOOD COUNT 5.24 10^6/uL (4.30-6.10); WHITE BLOOD COUNT 6.6 10^3/uL (4.0-10.0)
[2021-06-14 13:48] LABS: ALBUMIN 3.8 GM/DL (3.2-5.2); ALT/SGPT 21 U/L (12-78); BLOOD UREA NITROGEN 16 MG/DL (7-18); CALCIUM LEVEL 9.3 MG/DL (8.8-10.2); CARBON DIOXIDE LEVEL 27 MEQ/L (21-32); CHLORIDE LEVEL 107 MEQ/L (98-107); CREATININE FOR GFR 1.05 MG/DL (0.70-1.30); GLOMERULAR FILTRATION RATE > 60.0 (>35); GLUCOSE, FASTING 110 MG/DL (70-100); POTASSIUM SERUM 4.3 MEQ/L (3.5-5.1); SODIUM LEVEL 139 MEQ/L (136-145); TOTAL PROTEIN 7.6 GM/DL (6.4-8.2)
[2021-06-14 13:54] VITALS: BP 139/76
--- NOTE | 2021-06-14 14:08 | REP ---
INDICATION: difficulty urinating, h/o kidney stones. COMPARISON: None. TECHNIQUE: Standard helical technique without contrast FINDINGS: Respiratory motion artifact obscures the lung bases. There are no pleural or pericardial effusions. The liver, gallbladder, spleen, pancreas, and adrenal glands show no gross abnormalities. There are bilateral nonobstructing tiny nephroliths. There is an extrarenal pelvis seen bilaterally. There is no hydronephrosis or hydroureter. The urinary bladder is distended. There is no evidence of free fluid or free air. The abdominal aorta and para-aortic regions are within normal limits. No gross abnormality is seen involving the bowel loops or the mesenteries. There is no evidence of a mass or adenopathy. 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 Bone window technique throughout the exam shows the osseous structures to be within normal limits for the patient's age. IMPRESSION: There is no evidence of acute disease. The urinary bladder is distended. Tiny nonobstructing nephroliths are seen bilaterally. Whether the prostate calcifications truly represent corpora amylacea or other form of stone cannot be determined by this CT exam. <Electronically signed by Shravan Noel > 06/14/21 [id number]
[2021-06-14] MEDS ORDERED: CIPR-249 PO (14:25)
== END 2021-06-14 15:00 | disposition home or self-care (01) ==
LOC: M ED 09:44
DX: N42.0 Calculus of prostate (principal); N20.0 Calculus of kidney; N32.89 Other specified disorders of bladder; N39.0 Urinary tract infection, site not specified; Z79.82 Long term (current) use of aspirin; Z79.899 Other long term (current) drug therapy

== ENCOUNTER 2021-06-27 11:17 | Emergency (ER) | payer MEDICARE, OTHER ==
[~2021-06-27] VITALS: Ht 165.1 cm; Wt 84.3 kg
[~2021-06-27 11:17] MED LIST changes: -ANUS2.5C2 TOP
--- OUTSIDE RECORDS SUMMARY | 2021-06-27 11:25 | CCD | Continuity of Care Document ---
Author Author Albert DAVIS M.D. Organization Unknown Address [address] [address] Phone [phone] Care Team Providers Care Supervisor Tree Trimming Name Role Phone Andrew Davis MD AUTM [phone] Aung Teague MD AUTM [phone] Baltazar Cannon MD AUTM [phone] Problems Active Problems Provider Date Essential hypertension [...] SIG Qnty Indications Ordering Provide r Date Dutasteride 0.5mg Capsules 1 daily 90caps Andrew Davis M.D. 06/16/2021 Tamsulosin HCL 0.4mg Capsules Take Two Capsules By Mouth Every Day 60caps Jennie Smith DO 0 03/2020 Aspir-[address] 1 by [...] every day 90tabs Andrew Davis M.D. 09/13/2016 Medications Administered in Office Medication SIG Qnty Indications Ordering Provider Date Covid-19 vaccine, Unspecified Inj ection Unknown 10/06/2020 Covid-19 vaccine, Unspecified Inj ection Unknown 09/08/2020 Immunization Adminstration,1 Vaccine/Tox oid Injection Andrew Davis M.D. 019 Immunizations CPT Code Status Date Vaccine Lot # U-Flu Given 04/28/2020 Influenza,Unspecified 98536 Given 08/12/2019 Shingrix Zoster Vaccine (HZV), Recombinant, Subunit, Adjuvanted 60094 Given 07/22/2019 Adacel- Tetanus Diphtheria P ertussis [id number] Given 06/13/2019 Shingrix Zoster Vaccine (HZV), Recombinant, Subunit, Adjuvanted U-Flu Given 05/13/2019 Influenza,Unspecified U-Pneum Given 05/29/2018 Pneumococcal,Unspecified U-Flu Given 05/29/2018 Influenza,Unspecified 36266 Given 05/14/2015 Prevnar 13 10948 Given 06/17/2013 Pneumovax 23 45538 Refused 07/09/2017 Influenza Vaccin e Quadrivalent Preser/Antibiotic Free Im Use Vital Signs Date Vital Result Comment 06/16/2021 11:16am BP Systolic 134 mmHg BP Diastolic 80 mmHg Heart Rate 76 /min Height 65 inches 5'5" Weight 190.00 lb BMI (Body Mass Index) 31.6 kg/m2 05/27/2021 2:41pm BP Systolic 120 mmHg BP [...] % BMI (Body Mass Index) 30.9 kg/m2 Results Test Acquired Date Facility Test Result H/L Range Note CBC With Differential 06/14/[address] [address] [phone] White Blood Count 6.6 10 Normal 4.0-10.0 Red Blood Count 5.24 10 Normal 4.30-6.10 Hemoglobin 16.0 g/dL Normal 13.5-17.5 Hematocrit 47.1 % Normal 42.0-52.0 Mean Corpuscular Volume 89.9 fl Normal 80.0-96.0 Mean Corpuscular Hemoglobin 30.5 pg Normal 27.0-33.0 Mean Corpuscular HGB Conc 34.0 g/dL Normal 32.0-36.5 Red Cell Distribution Width 13.2 % Normal 11.5-14.5 Platelet Count, Automated 180 10 Normal 150-450 Neutrophils % 57.3 % Normal 36.0-66.0 Lymph % 29.5 % Normal 24.0-44.0 [place] % 9.4 % High 2.0-8.0 Eos % 2.4 % Normal 0.0-3.0 Baso % 0.8 % Normal 0.0-1.0 Immature Granulocyte % 0.6 % Normal 0-3.0 Nucleated Red Blood Cell % 0.0 % Normal 0-0 Neutrophils # 3.8 10 Normal 1.5-8.5 Lymph # 2.0 10 Normal 1.5-5.0 [place] # 0.6 10 Normal 0.0-0.8 Eos # 0.2 10 Normal 0.0-0.5 Baso # 0.1 10 Normal 0.0-0.2 Comprehensive Metabolic Profil 06/14/[address] [address] [phone] Glucose, Fasting 110 mg/dL High 70-100 Blood Urea Nitrogen 16 mg/dL Normal 7-18 Creatinine For GFR 1.05 mg/dL Normal 0.70-1.30 Glomerular Filtration Rate > 60.0 Normal >35 1 Sodium Level 139 mEq/L Normal 136-145 Potassium Serum 4.3 mEq/L Normal 3.5-5.1 Chloride Level 107 mEq/L Normal 98-107 Carbon Dioxide Level 27 mEq/L Normal 21-32 Anion Gap 5 mEq/L Low 8-16 Calcium Level 9.3 mg/dL Normal 8.8-10.2 Ast/Sgot 13 U/L Normal 7-37 Alt/SGPT 21 U/L Normal 12-78 Alkaline Phosphatase 59 U/L Normal 45-117 Bilirubin,Total 1.0 mg/dL Normal 0.2-1.0 Total Protein 7.6 GM/DL Normal 6.4-8.2 Albumin 3.8 GM/DL Normal 3.2-5.2 Albumin/Globulin Ratio 1.0 Normal Ua W/ Reflex To Culture 06/14/2021 [facility] [address] [place], [place] [id number] [phone] Appearance, Urine RFX CLEAR Normal Clear Color, Urine RFX YELLOW Normal Yellow PH,Urine RFX 6.0 units Normal 5.0-9.0 Specific [place] Ur Auto RFX 1.016 Normal 1.002-1.035 Protein, Urine Auto RFX NEGATIVE mg/dL Normal Negative Glucose, Urine (Ua) Auto RFX 1+ mg/dL High Negative Ketone, Urine Auto RFX NEGATIVE mg/dL Normal Negative Urobilinogen, Urine Auto RFX 2.0 mg/dL High 0.0-2.0 Bilirubin, Urine Auto RFX NEGATIVE Normal Negative Nitrite, Urine Auto RFX NEGATIVE Normal Negative Leukocyte Esterase Ur Auto RFX NEGATIVE Normal Negative Blood, Urine Blood RFX NEGATIVE Normal Negative WBC, Urine Auto RFX 4 /HPF High 0-3 RBC, Urine Auto RFX 1 /HPF Normal 0-3 Bacteria, Urine Auto RFX NEGATIVE Normal Negative Squam Epithelial Cell Ur Aurfx 0 /HPF Normal 0-6 Mucus, Urine RFX SMALL Normal Negative Hyaline Cast, Urine Auto RFX 0 /LPF Normal 0-1 Basic Metabolic Panel 05/27/2021 [facility] Lcac Operator: [place] [address] [phone] Glucose 115 mg/dL High 74 - 99 2 BUN 22 mg/dL High 7 - 18 Creatinine 1.2 mg/dL 0.6 - 1.3 Sodium 140 mEq/L 136 - 145 Potassium 3.7 mEq/L 3.5 - 5.1 Chloride 105 mEq/L 98 - 107 Carbon Dioxide 31 mEq/L 21 - 32 Calcium 10.0 mg/dL 8.5 - 10.1 GFR 58 mL/min Low >60 GFR >= 60 mL/min >60 3 Complete Blood Count 05/04/2021 [facility] Lcac Operator: Dr Pelon [place], [place] [id number] [phone] WBC 7.8 x10*3/UL 4.1 - 10.9 RBC [...] 5.6 x10*3/UL 2.0 - 7.8 A1c 05/03/2021 [facility] , Lcac Operator: [place] [address] [phone] Hba1c 6.9 % High <5.7 4 Est Avg Glucose 151 mg/dL High 60 - 110 Comprehensive Chem Profile 05/03/2021 [facility], Lcac Operator: [place] [address] [phone] Glucose 173 mg/dL High 74 - 99 5 BUN 21 mg/dL High 7 - 18 [...] Low >60 GFR >= 60 mL/min >60 6 Laboratory test finding 05/03/2021 [facility], Lcac Operator: Dr Pelon [place], [place] [id number] [phone] Thyroid Stimulating Hormone 3.14 uIU/mL 0.3 6 - 3.74 T4 Free 0.93 ng/dL 0.76 - 1.46 Laboratory test finding 05/03/2021 [facility], Lcac Operator: [place] [address] [phone] PSA 0.41 ng/mL <4.00 7 Comprehensive Chem Profile 12/22/2020 [facility] Lcac Operator: [place] [address] [phone] Glucose 131 mg/dL High 74 - 99 8 BUN 24 mg/dL High 7 - 18 [...] mL/min >60 GFR >= 60 mL/min >60 9 Lipid Profile 12/22/2020 [facility] , Lcac Operator: [place] [address] [phone] Cholesterol 154 mg/dL 131 - 200 Triglycerides 143 mg/dL 30 - 150 HDL Cholesterol 47 mg/dL 35 - 60 LDL (Calculated) 78 CALC 50 - 159 A1c 12/22/2020 [facility] Lcac Operator: Dr Pelon [place], [place] [id number] [phone] Hba1c 7.0 % High <5.7 10 Est Avg Glucose 154 mg/dL High 60 - 110 Laboratory test finding 12/22/2020 [facility] Lcac Operator: Dr Pelon [place], [place] [id number] [phone] Thyroid Stimulating Hormone 3.59 uIU/mL 0.3 6 - 3.74 1 Units are mL/min/1.73 m2 Chronic Kidney Disease Staging per NKF: Stage I & II GFR >=60 Normal to Mildly Decreased Stage III GFR 30-59 Moderately Decreased Stage IV GFR 15-29 Severely Decreased Stage V GFR <15 Very Little GFR Left ESRD GFR <15 on MANAGER [place] 2 100-125 mg/dL PRE-DIABET ES/FASTING >126 mg/dL DIABETES/FASTING 3 CHRONIC KIDNEY DISEASE STAGI NG PER NKF STAGE I & II GFR >= 60 NORMAL TO MILDLY DECREASED STAGE III GFR 30-59 MODERATELY DECREASED STAGE IV GFR 15-29 SEVERELY DECREASED STAGE V GFR <15 VERY LITTLE GFR LEFT ESRD GFR <15 ON MANAGER [place] 4 Lab Result Notes: Pre-Diabetes 5.7 - 6.4 % Diabetes = or > 6.5% 5 100-125 mg/dL PRE-DIABET ES/FASTING >126 mg/dL DIABETES/FASTING 6 CHRONIC KIDNEY DISEASE STAGI NG PER NKF STAGE I & II GFR >= 60 NORMAL TO MILDLY DECREASED STAGE III GFR 30-59 MODERATELY DECREASED STAGE IV GFR 15-29 SEVERELY DECREASED STAGE V GFR <15 VERY LITTLE GFR LEFT ESRD GFR <15 ON MANAGER [place] 7 This assay was performed on the Siemens [employer] EXL using the B- Galactosidase/CPRG methodology and should not be compared interchangeably with other methods. The PSA should not be used alone as a screening test for the presence or absence of malignant disease. 8 100-125 mg/dL PRE-DIABET ES/FASTING >126 mg/dL DIABETES/FASTING 9 CHRONIC KIDNEY DISEASE STAGI NG PER NKF STAGE I & II GFR >= 60 NORMAL TO MILDLY DECREASED STAGE III GFR 30-59 MODERATELY DECREASED STAGE IV GFR 15-29 SEVERELY DECREASED STAGE V GFR <15 VERY LITTLE GFR LEFT ESRD GFR <15 ON MANAGER [place] 10 Lab Result Notes: Pre-Diabetes 5.7 - 6.4 % Diabetes = or > 6.5% Procedures Date Code Description Status 05/27/2021 08686 Impacted Cerumen Irrigat/Lavage Completed 05/27/2021 15222 Office/Outpatient Established Lo w MDM 20-29 Min Completed 05/04/2021 01311 Office/Outpatient Established Mo d MDM 30-39 Min Completed 05/04/2021 96952 EKG/Interpretation & Report Comp leted 04/18/2021 [id number] Diabetic Retinal Eye Exam Comple manuel 12/27/2020 58857 Office/Outpatient Established Mo d MDM 30-39 Min Completed 10/18/2020 [id number] Diabetic Retinal Eye Exam Comple manuel 02/09/2020 [id number] Diabetic Retinal Eye Exam Comple manuel 06/30/2019 [id number] Diabetic Retinal Eye Exam Comple manuel 12/30/2018 [id number] Diabetic Retinal Eye Exam Comple manuel 08/23/2018 [id number] Colonoscopy Completed 06/10/2018 [id number] Diabetic Retinal Eye Exam Comple manuel 04/16/2017 [id number] Diabetic Retinal Eye Exam Comple manuel 04/11/2017 [id number] Diabetic Retinal Eye Exam Comple manuel 04/09/2017 557142694 Diabetic Retinal Eye Exam Comple manuel 03/23/2017 [id number] Diabetic Retinal Eye Exam Comple manuel 10/27/2014 [id number] Colonoscopy Completed Medical Devices Description No Information Available Encounters Type Date Location Provider Dx Diagnosis Office Visit 05/27/2021 3:00p [facility] MELA Cesar R42 Dizziness and giddiness I12.9 Hypertensive chronic kidney disease w stg 1-4/unsp chr kdny N18.31 Chronic kidney disease, stag e 3a H61.23 Impacted cerumen, bilateral R35.1 Nocturia R41.81 Age-related cognitive declin e Office Visit 05/04/2021 11:30a [facility] Andrew Davis M.D. E11.9 Type [...] ritis, right knee Office Visit 12/27/2020 1:30p [facility] Andrew Davis M.D. E78.5 Hyperlipidemia, [...] other disorder Assessments Date Code Description Provider 06/16/2021 R42 Dizziness and giddiness Andrew Davis M.D. 06/16/2021 R41.81 Age-related cognitive decline Kike Davis M.D. 06/16/2021 R26.89 Other abnormalities of gait and mobility Andrew Davis M.D. 06/16/2021 R39.12 Poor urinary stream Andrew rojas M.D. 06/16/2021 H91.93 Unspecified hearing loss, bilate ral Andrew Davis M.D. 06/16/2021 H35.30 Unspecified macular degeneration Andrew Davis M.D. 06/16/2021 Z87.442 Personal history of urinary calc vikki Andrew Davis M.D. 05/27/2021 R42 Dizziness and giddiness Taty Carballo, [employer] 05/27/2021 I12.9 Hypertensive chronic kidney disease with stage 1 through stage 4 chronic kidney disease, or unspecified chronic kidney disease Taty Blount, [facility] 05/27/2021 N18.31 Chronic kidney disease, stage 3a Taty Blount, [facility] 05/27/2021 H61.23 Impacted cerumen, bilateral Taty Blount, [facility] 05/27/2021 R35.1 Nocturia Taty Blount, [facility] 05/27/2021 R41.81 Age-related cognitive decline An charlee Delcid Jonny, [facility] 05/04/2021 E11.9 Type 2 diabetes mellitus without [...] M.D. 05/04/2021 H91.93 Unspecified hearing loss, bilate dorys Davis M.D. 05/04/2021 E78.5 Hyperlipidemia, unspecified Gisela Davis M.D. 05/04/2021 J30.9 Allergic rhinitis, unspecified Avi Davis M.D. 05/04/2021 H91.93 Unspecified hearing loss, bilate dorys Davis M.D. 05/04/2021 H35.30 Unspecified macular degeneration Andrew Davis M.D. 05/04/2021 J30.9 Allergic rhinitis, unspecified Avi Davis M.D. 05/04/2021 Z87.442 Personal history of [...] Lab Schedule Plan of Treatment Future Appointment(s):* 07/18/2021 10:00 am - Andrew Davis M.D. at [facility] 06/16/2021 - Andrew Davis M.D.* R42 Dizziness and giddiness * R41.81 Age-related cognitive decline * R26.89 Other abnormalities of gait and mobility * R39.12 Poor urinary stream * H91.93 Unspecified hearing loss, bilateral * H35.30 Unspecified macular degeneration * Z87.442 Personal history of urinary calculi * * Comments:* Will finish the antibiotics and get the ultrasound. He brandon also see neurology for work up of both gait, dizziness and memory issues in less than 2 weeks. Functional Status Description No Information Available Mental Status Description No Information Available Referrals Refer to Reason for Referral Status Appt Date Ashley Pabon MD CONSULT FOR DIZZINESS Patient Notified 06/30/20 21 [address] [place] [address] [phone]
--- OUTSIDE RECORDS SUMMARY | 2021-06-27 11:25 | CCD | Continuity of Care Document ---
Author Author Albert DAVIS M.D. Organization Unknown Address [address] [address] Phone [phone] Care Team Providers Care Linux Admin Name Role Phone Andrew Davis MD AUTM [phone] Aung Teague MD AUTM [phone] Baltazar Cannon MD AUTM [phone] Problems Active Problems Provider Date Essential hypertension [...] Vaccine Lot # U-Flu Given 04/28/2020 Influenza,Unspecified 43926 Given 08/12/2019 Shingrix Zoster Vaccine (HZV), Recombinant, Subunit, Adjuvanted 25157 Given 07/22/2019 Adacel- Tetanus Diphtheria P ertussis [id number] 80252 Given 06/13/2019 Shingrix Zoster Vaccine (HZV), Recombinant, Subunit, Adjuvanted U-Flu Given 05/13/2019 Influenza,Unspecified U-Pneum Given 05/29/2018 Pneumococcal,Unspecified U-Flu Given 05/29/2018 Influenza,Unspecified 40249 Given 05/14/2015 Prevnar 13 15805 Given 06/17/2013 Pneumovax 23 47235 Refused 07/09/2017 Influenza Vaccin e Quadrivalent Preser/Antibiotic [...] H/L Range Note CBC With Differential 06/14/[address] [address] [phone] White Blood Count 6.6 10 Normal 4.0-10.0 [...] 36.0-66.0 Lymph % 29.5 % Normal 24.0-44.0 [place] % 9.4 % High 2.0-8.0 Eos % 2.4 % Normal 0.0-3.0 Baso % 0.8 % Normal 0.0-1.0 Immature Granulocyte % 0.6 % Normal 0-3.0 Nucleated Red Blood Cell % 0.0 % Normal 0-0 Neutrophils # 3.8 10 Normal 1.5-8.5 Lymph # 2.0 10 Normal 1.5-5.0 [place] # 0.6 10 Normal 0.0-0.8 Eos # 0.2 10 Normal 0.0-0.5 Baso # 0.1 10 Normal 0.0-0.2 Comprehensive Metabolic Profil 06/14/[address] [address] [phone] Glucose, Fasting 110 mg/dL High 70-100 Blood [...] Normal Ua W/ Reflex To Culture 06/14/2021 [facility] [address] [place], [place] [id number] [phone] Appearance, Urine RFX CLEAR Normal Clear Color, Urine RFX YELLOW Normal Yellow PH,Urine RFX 6.0 units Normal 5.0-9.0 Specific [place] Ur Auto RFX 1.016 Normal 1.002-1.035 Protein, [...] /LPF Normal 0-1 Basic Metabolic Panel 05/27/2021 [facility] Flavor Maker: [place] [address] [phone] Glucose 115 mg/dL High 74 - 99 [...] mL/min >60 3 Complete Blood Count 05/04/2021 [facility] Flavor Maker: Dr Pelon [address] [place], [place] [id number] [phone] WBC 7.8 x10*3/UL 4.1 - 10.9 RBC [...] 5.6 x10*3/UL 2.0 - 7.8 A1c 05/03/2021 [facility] , Flavor Maker: [place] [address] [phone] Hba1c 6.9 % High <5.7 4 Est Avg Glucose 151 mg/dL High 60 - 110 Comprehensive Chem Profile 05/03/2021 [facility], Flavor Maker: [place] [address] [phone] Glucose 173 mg/dL High 74 - 99 [...] mL/min >60 6 Laboratory test finding 05/03/2021 [facility], Flavor Maker: Dr Pelon [address] [place], [place] [address] [phone] Thyroid Stimulating Hormone 3.14 uIU/mL 0.3 6 - 3.74 T4 Free 0.93 ng/dL 0.76 - 1.46 Laboratory test finding 05/03/2021 [facility], Flavor Maker: [place] [address] [phone] PSA 0.41 ng/mL <4.00 7 Comprehensive Chem Profile 12/22/2020 [facility], Flavor Maker: [place] [address] [phone] Glucose 131 mg/dL High 74 - 99 [...] 60 mL/min >60 9 Lipid Profile 12/22/2020 [facility] , Flavor Maker: [place] [address] [phone] Cholesterol 154 mg/dL 131 - 200 Triglycerides 143 mg/dL 30 - 150 HDL Cholesterol 47 mg/dL 35 - 60 LDL (Calculated) 78 CALC 50 - 159 A1c 12/22/2020 [facility] Flavor Maker: Dr Pelon [address] [place], [place] [id number] [phone] Hba1c 7.0 % High <5.7 10 Est Avg Glucose 154 mg/dL High 60 - 110 Laboratory test finding 12/22/2020 [facility] Flavor Maker: Dr Pelon [address] [place], [place] [id number] [phone] Thyroid Stimulating Hormone 3.59 uIU/mL 0.3 6 - 3.74 1 Units are mL/min/1.73 m2 Chronic Kidney Disease Staging per NKF: Stage I & II GFR >=60 Normal to Mildly Decreased Stage III GFR 30-59 Moderately Decreased Stage IV GFR 15-29 Severely Decreased Stage V GFR <15 Very Little GFR Left ESRD GFR <15 on DIRECTOR OF STRATEGIC PROGRAMS 2 100-125 mg/dL PRE-DIABET ES/FASTING >126 mg/dL DIABETES/FASTING 3 CHRONIC KIDNEY DISEASE STAGI NG PER NKF STAGE I & II GFR >= 60 NORMAL TO MILDLY DECREASED STAGE III GFR 30-59 MODERATELY DECREASED STAGE IV GFR 15-29 SEVERELY DECREASED STAGE V GFR <15 VERY LITTLE GFR LEFT ESRD GFR <15 ON DIRECTOR OF STRATEGIC PROGRAMS 4 Lab Result Notes: Pre-Diabetes 5.7 - [...] LITTLE GFR LEFT ESRD GFR <15 ON DIRECTOR OF STRATEGIC PROGRAMS 7 This assay was performed on the Siemens [employer] EXL using the B- Galactosidase/CPRG methodology and [...] LITTLE GFR LEFT ESRD GFR <15 ON DIRECTOR OF STRATEGIC PROGRAMS 10 Lab Result Notes: Pre-Diabetes 5.7 - 6.4 % Diabetes = or > 6.5% Procedures Date Code Description Status 05/27/2021 49127 Impacted Cerumen Irrigat/Lavage Completed 05/27/2021 25161 Office/Outpatient Established Lo w MDM 20-29 Min Completed 05/04/2021 38507 Office/Outpatient Established Mo d MDM 30-39 Min Completed 05/04/2021 62720 EKG/Interpretation & Report Comp leted 04/18/2021 [id number] Diabetic Retinal Eye Exam Comple manuel 12/27/2020 89411 Office/Outpatient Established Mo d MDM 30-39 Min Completed 10/18/2020 [id number] Diabetic Retinal Eye Exam Comple manuel 02/09/2020 591382846 Diabetic Retinal Eye Exam Comple manuel 06/30/2019 312081646 Diabetic Retinal Eye Exam Comple manuel 12/30/2018 [id number] Diabetic Retinal Eye Exam Comple manuel 08/23/2018 [id number] Colonoscopy Completed 06/10/2018 713008581 Diabetic Retinal Eye Exam Comple manuel 04/16/2017 535342374 Diabetic Retinal Eye Exam Comple manuel 04/11/2017 086820787 Diabetic Retinal Eye Exam Comple manuel 04/09/2017 764017555 Diabetic Retinal Eye Exam Comple manuel 03/23/2017 [id number] Diabetic Retinal Eye Exam Comple manuel 10/27/2014 58170237 Colonoscopy Completed Medical Devices Description No Information Available Encounters Type Date Location Provider Dx Diagnosis Office Visit 05/27/2021 3:00p [facility] MELA Cesar R42 Dizziness and giddiness I12.9 Hypertensive chronic kidney disease w stg 1-4/unsp chr kdny N18.31 Chronic kidney disease, stag e 3a H61.23 Impacted cerumen, bilateral R35.1 Nocturia R41.81 Age-related cognitive declin e Office Visit 05/04/2021 11:30a [facility] Andrew Davis M.D. E11.9 Type [...] ritis, right knee Office Visit 12/27/2020 1:30p [facility] Andrew Davis M.D. E78.5 Hyperlipidemia, [...] 05/27/2021 R42 Dizziness and giddiness Taty Carballo, [employer] 05/27/2021 I12.9 Hypertensive chronic kidney disease with stage 1 through stage 4 chronic kidney disease, or unspecified chronic kidney disease Taty Blount, [facility] 05/27/2021 N18.31 Chronic kidney disease, stage 3a Taty Blount, [facility] 05/27/2021 H61.23 Impacted cerumen, bilateral Taty Blount, [facility] 05/27/2021 R35.1 Nocturia Taty Blount, [facility] 05/27/2021 R41.81 Age-related cognitive decline An charlee Delcid Jonny, [facility] 05/04/2021 E11.9 Type 2 diabetes mellitus [...] 10:00 am - Andrew Davis M.D. at [facility] 06/16/2021 - Andrew Davis M.D.* [...] FOR DIZZINESS Patient Notified 06/30/20 21 [address] [place] [address] [phone]
--- OUTSIDE RECORDS SUMMARY | 2021-06-27 11:25 | CCD | Continuity of Care Document ---
Author Author Albert DAVIS M.D. Organization Unknown Address [address] [address] Phone [phone] Care Team Providers Care Simulation Analyst Name Role Phone Andrew Davis MD AUTM [phone] Aung Teague MD AUTM [phone] Baltazar Cannon MD AUTM [phone] Problems Active Problems Provider Date Essential hypertension [...] Vaccine Lot # U-Flu Given 04/28/2020 Influenza,Unspecified 56466 Given 08/12/2019 Shingrix Zoster Vaccine (HZV), Recombinant, Subunit, Adjuvanted 63495 Given 07/22/2019 Adacel- Tetanus Diphtheria P ertussis [id number] 39596 Given 06/13/2019 Shingrix Zoster Vaccine (HZV), Recombinant, Subunit, Adjuvanted U-Flu Given 05/13/2019 Influenza,Unspecified U-Pneum Given 05/29/2018 Pneumococcal,Unspecified U-Flu Given 05/29/2018 Influenza,Unspecified 70522 Given 05/14/2015 Prevnar 13 02284 Given 06/17/2013 Pneumovax 23 98835 Refused 07/09/2017 Influenza Vaccin e Quadrivalent Preser/Antibiotic [...] H/L Range Note CBC With Differential 06/14/[address] [address] [phone] White Blood Count 6.6 10 Normal 4.0-10.0 [...] 36.0-66.0 Lymph % 29.5 % Normal 24.0-44.0 [place] % 9.4 % High 2.0-8.0 Eos % 2.4 % Normal 0.0-3.0 Baso % 0.8 % Normal 0.0-1.0 Immature Granulocyte % 0.6 % Normal 0-3.0 Nucleated Red Blood Cell % 0.0 % Normal 0-0 Neutrophils # 3.8 10 Normal 1.5-8.5 Lymph # 2.0 10 Normal 1.5-5.0 [place] # 0.6 10 Normal 0.0-0.8 Eos # 0.2 10 Normal 0.0-0.5 Baso # 0.1 10 Normal 0.0-0.2 Comprehensive Metabolic Profil 06/14/[address] [address] [phone] Glucose, Fasting 110 mg/dL High 70-100 Blood [...] Normal Ua W/ Reflex To Culture 06/14/2021 [facility] [address] [place], [place] [id number] [phone] Appearance, Urine RFX CLEAR Normal Clear Color, Urine RFX YELLOW Normal Yellow PH,Urine RFX 6.0 units Normal 5.0-9.0 Specific [place] Ur Auto RFX 1.016 Normal 1.002-1.035 Protein, [...] /LPF Normal 0-1 Basic Metabolic Panel 05/27/2021 [facility] Teacher Of The Handicapped: [place] [address] [phone] Glucose 115 mg/dL High 74 - 99 [...] mL/min >60 3 Complete Blood Count 05/04/2021 [facility] Teacher Of The Handicapped: Dr Pelon William [place], [place] [id number] [phone] WBC 7.8 x10*3/UL 4.1 - 10.9 RBC [...] 5.6 x10*3/UL 2.0 - 7.8 A1c 05/03/2021 [facility] , Teacher Of The Handicapped: [place] [address] [phone] Hba1c 6.9 % High <5.7 4 Est Avg Glucose 151 mg/dL High 60 - 110 Comprehensive Chem Profile 05/03/2021 [facility], Teacher Of The Handicapped: [place] [address] [phone] Glucose 173 mg/dL High 74 - 99 [...] mL/min >60 6 Laboratory test finding 05/03/2021 [facility], Teacher Of The Handicapped: Dr Pelon William [place], [place] [address] [phone] Thyroid Stimulating Hormone 3.14 uIU/mL 0.3 6 - 3.74 T4 Free 0.93 ng/dL 0.76 - 1.46 Laboratory test finding 05/03/2021 [facility], Teacher Of The Handicapped: [place] [address] [phone] PSA 0.41 ng/mL <4.00 7 Comprehensive Chem Profile 12/22/2020 [facility], Teacher Of The Handicapped: [place] [address] [phone] Glucose 131 mg/dL High 74 - 99 [...] 60 mL/min >60 9 Lipid Profile 12/22/2020 [facility] , Teacher Of The Handicapped: [place] [address] [phone] Cholesterol 154 mg/dL 131 - 200 Triglycerides 143 mg/dL 30 - 150 HDL Cholesterol 47 mg/dL 35 - 60 LDL (Calculated) 78 CALC 50 - 159 A1c 12/22/2020 [facility] Teacher Of The Handicapped: Dr Pelon William [place], [place] [id number] [phone] Hba1c 7.0 % High <5.7 10 Est Avg Glucose 154 mg/dL High 60 - 110 Laboratory test finding 12/22/2020 [facility] Teacher Of The Handicapped: Dr Pelon William [place], [place] [address] [phone] Thyroid Stimulating Hormone 3.59 uIU/mL 0.3 6 - 3.74 1 Units are mL/min/1.73 m2 Chronic Kidney Disease Staging per NKF: Stage I & II GFR >=60 Normal to Mildly Decreased Stage III GFR 30-59 Moderately Decreased Stage IV GFR 15-29 Severely Decreased Stage V GFR <15 Very Little GFR Left ESRD GFR <15 on AUTOMATION ANALYST 2 100-125 mg/dL PRE-DIABET ES/FASTING >126 mg/dL DIABETES/FASTING 3 CHRONIC KIDNEY DISEASE STAGI NG PER NKF STAGE I & II GFR >= 60 NORMAL TO MILDLY DECREASED STAGE III GFR 30-59 MODERATELY DECREASED STAGE IV GFR 15-29 SEVERELY DECREASED STAGE V GFR <15 VERY LITTLE GFR LEFT ESRD GFR <15 ON AUTOMATION ANALYST 4 Lab Result Notes: Pre-Diabetes 5.7 - [...] LITTLE GFR LEFT ESRD GFR <15 ON AUTOMATION ANALYST 7 This assay was performed on the Siemens [employer] EXL using the B- Galactosidase/CPRG methodology and [...] LITTLE GFR LEFT ESRD GFR <15 ON AUTOMATION ANALYST 10 Lab Result Notes: Pre-Diabetes 5.7 - 6.4 % Diabetes = or > 6.5% Procedures Date Code Description Status 05/27/2021 63701 Impacted Cerumen Irrigat/Lavage Completed 05/27/2021 31122 Office/Outpatient Established Lo w MDM 20-29 Min Completed 05/04/2021 98426 Office/Outpatient Established Mo d MDM 30-39 Min Completed 05/04/2021 88519 EKG/Interpretation & Report Comp leted 04/18/2021 [id number] Diabetic Retinal Eye Exam Comple manuel 12/27/2020 95286 Office/Outpatient Established Mo d MDM 30-39 Min Completed 10/18/2020 [id number] Diabetic Retinal Eye Exam Comple manuel 02/09/2020 [id number] Diabetic Retinal Eye Exam Comple manuel 06/30/2019 [id number] Diabetic Retinal Eye Exam Comple manuel 12/30/2018 961802532 Diabetic Retinal Eye Exam Comple manuel 08/23/2018 [id number] Colonoscopy Completed 06/10/2018 [id number] Diabetic Retinal Eye Exam Comple manuel 04/16/2017 [id number] Diabetic Retinal Eye Exam Comple manuel 04/11/2017 318960462 Diabetic Retinal Eye Exam Comple manuel 04/09/2017 800950394 Diabetic Retinal Eye Exam Comple manuel 03/23/2017 636534803 Diabetic Retinal Eye Exam Comple manuel 10/27/2014 [id number] Colonoscopy Completed Medical Devices Description No Information Available Encounters Type Date Location Provider Dx Diagnosis Office Visit 05/27/2021 3:00p [facility] MELA Cesar R42 Dizziness and giddiness I12.9 Hypertensive chronic kidney disease w stg 1-4/unsp chr kdny N18.31 Chronic kidney disease, stag e 3a H61.23 Impacted cerumen, bilateral R35.1 Nocturia R41.81 Age-related cognitive declin e Office Visit 05/04/2021 11:30a [facility] Andrew Davis M.D. E11.9 Type [...] ritis, right knee Office Visit 12/27/2020 1:30p [facility] Andrew Davis M.D. E78.5 Hyperlipidemia, [...] 05/27/2021 R42 Dizziness and giddiness Taty Carballo, HOSPICE NURSE 05/27/2021 I12.9 Hypertensive chronic kidney disease with stage 1 through stage 4 chronic kidney disease, or unspecified chronic kidney disease Taty Blount, [facility] 05/27/2021 N18.31 Chronic kidney disease, stage 3a Taty Blount, [facility] 05/27/2021 H61.23 Impacted cerumen, bilateral Taty Blount, [facility] 05/27/2021 R35.1 Nocturia Taty Blount, [facility] 05/27/2021 R41.81 Age-related cognitive decline An charlee Delcid Jonny, [facility] 05/04/2021 E11.9 Type 2 diabetes mellitus without [...] Type 2 diabetes mellitus without complications Andrew Dvais M.D. 12/22/2020 E11.9 Type 2 diabetes mellitus without complications Lab Schedule 12/22/2020 E78.5 Hyperlipidemia, unspecified Gisela Davis M.D. 12/22/2020 E78.5 Hyperlipidemia, unspecified Lab Schedule 12/22/2020 E07.9 Disorder of thyroid, unspecified Andrew Davis M.D. 12/22/2020 E07.9 Disorder of thyroid, unspecified Lab Schedule Plan of Treatment Future Appointment(s):* 07/18/2021 10:00 am - Andrew Davis M.D. at [facility] 06/16/2021 - Andrew Davis M.D.* [...] FOR DIZZINESS Patient Notified 06/30/20 21 [address] [place] [address] [phone]
--- OUTSIDE RECORDS SUMMARY | 2021-06-27 11:26 | CCD | Continuity of Care Document ---
Author Author Albert DAVIS M.D. Organization Unknown Address [address] [address] Phone [phone] Care Team Providers Care Broadcast Program Director Name Role Phone Andrew Davis MD AUTM [phone] Aung Teague MD AUTM [phone] Baltazar Cannon MD AUTM [phone] Problems Active Problems Provider Date Essential hypertension [...] Vaccine Lot # U-Flu Given 04/28/2020 Influenza,Unspecified 31105 Given 08/12/2019 Shingrix Zoster Vaccine (HZV), Recombinant, Subunit, Adjuvanted 32221 Given 07/22/2019 Adacel- Tetanus Diphtheria P ertussis [id number] 77509 Given 06/13/2019 Shingrix Zoster Vaccine (HZV), Recombinant, Subunit, Adjuvanted U-Flu Given 05/13/2019 Influenza,Unspecified U-Pneum Given 05/29/2018 Pneumococcal,Unspecified U-Flu Given 05/29/2018 Influenza,Unspecified 22657 Given 05/14/2015 Prevnar 13 40426 Given 06/17/2013 Pneumovax 23 31035 Refused 07/09/2017 Influenza Vaccin e Quadrivalent Preser/Antibiotic [...] H/L Range Note CBC With Differential 06/14/[address] [id number] [phone] White Blood Count 6.6 10 Normal 4.0-10.0 [...] 36.0-66.0 Lymph % 29.5 % Normal 24.0-44.0 [place] % 9.4 % High 2.0-8.0 Eos % 2.4 % Normal 0.0-3.0 Baso % 0.8 % Normal 0.0-1.0 Immature Granulocyte % 0.6 % Normal 0-3.0 Nucleated Red Blood Cell % 0.0 % Normal 0-0 Neutrophils # 3.8 10 Normal 1.5-8.5 Lymph # 2.0 10 Normal 1.5-5.0 [place] # 0.6 10 Normal 0.0-0.8 Eos # 0.2 10 Normal 0.0-0.5 Baso # 0.1 10 Normal 0.0-0.2 Ua W/ Reflex To Culture 06/14/[address] [address] [phone] Appearance, Urine RFX CLEAR Normal Clear Color, Urine RFX YELLOW Normal Yellow PH,Urine RFX 6.0 units Normal 5.0-9.0 Specific [place] Ur Auto RFX 1.016 Normal 1.002-1.035 Protein, [...] /LPF Normal 0-1 Basic Metabolic Panel 05/27/2021 [facility] Energy Attorney: [place] [address] [phone] Glucose 115 mg/dL High 74 - 99 [...] mL/min >60 2 Complete Blood Count 05/04/2021 [facility] Energy Attorney: [place] [address] [phone] WBC 7.8 x10*3/UL 4.1 - 10.9 RBC [...] 5.6 x10*3/UL 2.0 - 7.8 A1c 05/03/2021 [facility] Energy Attorney: [place] [address] [phone] Hba1c 6.9 % High <5.7 3 Est Avg Glucose 151 mg/dL High 60 - 110 Comprehensive Chem Profile 05/03/2021 [facility] Energy Attorney: Dr Pelon William [place], [place] [address] [phone] Glucose 173 mg/dL High 74 - 99 [...] mL/min >60 5 Laboratory test finding 05/03/2021 [facility] Energy Attorney: [place] [address] [phone] Thyroid Stimulating Hormone 3.14 uIU/mL 0.3 6 - 3.74 T4 Free 0.93 ng/dL 0.76 - 1.46 Laboratory test finding 05/03/2021 [facility] Energy Attorney: [place] [address] [phone] PSA 0.41 ng/mL <4.00 6 Comprehensive Chem Profile 12/22/2020 [facility] Energy Attorney: [place] [address] [phone] Glucose 131 mg/dL High 74 - 99 [...] 60 mL/min >60 8 Lipid Profile 12/22/2020 [facility] , Energy Attorney: [place] [address] [phone] Cholesterol 154 mg/dL 131 - 200 Triglycerides 143 mg/dL 30 - 150 HDL Cholesterol 47 mg/dL 35 - 60 LDL (Calculated) 78 CALC 50 - 159 A1c 12/22/2020 [facility] , Energy Attorney: [place] [address] [phone] Hba1c 7.0 % High <5.7 9 Est Avg Glucose 154 mg/dL High 60 - 110 Laboratory test finding 12/22/2020 [facility], Energy Attorney: [place] [address] [phone] Thyroid Stimulating Hormone 3.59 uIU/mL 0.3 6 - 3.74 1 100-125 mg/dL PRE-DIABET ES/FASTING >126 mg/dL DIABETES/FASTING 2 CHRONIC KIDNEY DISEASE STAGI NG PER NKF STAGE I & II GFR >= 60 NORMAL TO MILDLY DECREASED STAGE III GFR 30-59 MODERATELY DECREASED STAGE IV GFR 15-29 SEVERELY DECREASED STAGE V GFR <15 VERY LITTLE GFR LEFT ESRD GFR <15 ON MEAT HOSTESS 3 Lab Result Notes: Pre-Diabetes 5.7 - [...] LITTLE GFR LEFT ESRD GFR <15 ON MEAT HOSTESS 6 This assay was performed on the Siemens [...] LITTLE GFR LEFT ESRD GFR <15 ON MEAT HOSTESS 9 Lab Result Notes: Pre-Diabetes 5.7 - 6.4 % Diabetes = or > 6.5% Procedures Date Code Description Status 05/27/2021 35789 Impacted Cerumen Irrigat/Lavage Completed 05/27/2021 55507 Office/Outpatient Established Lo w MDM 20-29 Min Completed 05/04/2021 98178 Office/Outpatient Established Mo d MDM 30-39 Min Completed 05/04/2021 13533 EKG/Interpretation & Report Comp leted 04/18/2021 [id number] Diabetic Retinal Eye Exam Comple manuel 12/27/2020 53045 Office/Outpatient Established Mo d MDM 30-39 Min Completed 10/18/2020 [id number] Diabetic Retinal Eye Exam Comple manuel 02/09/2020 251263663 Diabetic Retinal Eye Exam Comple manuel 06/30/2019 044805554 Diabetic Retinal Eye Exam Comple manuel 12/30/2018 023521993 Diabetic Retinal Eye Exam Comple [facility] 08/23/2018 77299643 Colonoscopy Completed 06/10/2018 760454702 Diabetic Retinal Eye Exam Comple manuel 04/16/2017 852459287 Diabetic Retinal Eye Exam Comple manuel 04/11/2017 779149412 Diabetic Retinal Eye Exam Comple manuel 04/09/2017 958738015 Diabetic Retinal Eye Exam Comple manuel 03/23/2017 382522809 Diabetic Retinal Eye Exam Comple [facility] 10/27/2014 28257838 Colonoscopy Completed Medical Devices Description No Information Available Encounters Type Date Location Provider Dx Diagnosis Office Visit 05/27/2021 3:00p [facility] Taty Blount , MELA R42 Dizziness and giddiness I12.9 Hypertensive chronic kidney disease w stg 1-4/unsp chr kdny N18.31 Chronic kidney disease, stag e 3a H61.23 Impacted cerumen, bilateral R35.1 Nocturia R41.81 Age-related cognitive declin e Office Visit 05/04/2021 11:30a [facility], Sheila Davis M.D. E11.9 Type 2 diabetes mellitus [...] ritis, right knee Office Visit 12/27/2020 1:30p [facility], Sheila Davis M.D. 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 05/04/2021 H35.30 Unspecified macular degeneration Andrew Davis [...] 11:30 am - [facility] at [facility] 12/27/2020 - Andrew Davis M.D.* E78.5 [...] We discussed his recent test results at [facility]. We will continue to work on [...] CONSULT FOR DIZZINESS Patient Notified 06/30/20 21 [address] [place] [address] [phone]
--- OUTSIDE RECORDS SUMMARY | 2021-06-27 11:26 | CCD | Continuity of Care Document ---
Author Author Alebrt DAVIS M.D. Organization Unknown Address [address] [address] Phone [phone] Care Team Providers Care Welfare Interviewer Name Role Phone Andrew Davis MD AUTM [phone] Aung Teague MD AUTM [phone] Baltazar Cannon MD AUTM [phone] Problems Active Problems Provider Date Essential hypertension [...] Vaccine Lot # U-Flu Given 04/28/2020 Influenza,Unspecified 41759 Given 08/12/2019 Shingrix Zoster Vaccine (HZV), Recombinant, Subunit, Adjuvanted 38807 Given 07/22/2019 Adacel- Tetanus Diphtheria P ertussis [id number] 50618 Given 06/13/2019 Shingrix Zoster Vaccine (HZV), Recombinant, Subunit, Adjuvanted U-Flu Given 05/13/2019 Influenza,Unspecified U-Pneum Given 05/29/2018 Pneumococcal,Unspecified U-Flu Given 05/29/2018 Influenza,Unspecified 75577 Given 05/14/2015 Prevnar 13 67006 Given 06/17/2013 Pneumovax 23 57815 Refused 07/09/2017 Influenza Vaccin e Quadrivalent Preser/Antibiotic [...] H/L Range Note CBC With Differential 06/14/[address] [address] [phone] White Blood Count 6.6 10 Normal 4.0-10.0 [...] 36.0-66.0 Lymph % 29.5 % Normal 24.0-44.0 [place] % 9.4 % High 2.0-8.0 Eos % 2.4 % Normal 0.0-3.0 Baso % 0.8 % Normal 0.0-1.0 Immature Granulocyte % 0.6 % Normal 0-3.0 Nucleated Red Blood Cell % 0.0 % Normal 0-0 Neutrophils # 3.8 10 Normal 1.5-8.5 Lymph # 2.0 10 Normal 1.5-5.0 [place] # 0.6 10 Normal 0.0-0.8 Eos # 0.2 10 Normal 0.0-0.5 Baso # 0.1 10 Normal 0.0-0.2 Comprehensive Metabolic Profil 06/14/[address] [address] [phone] Glucose, Fasting 110 mg/dL High 70-100 Blood [...] Normal Ua W/ Reflex To Culture 06/14/2021 [facility] [address] [place], [place] [id number] [phone] Appearance, Urine RFX CLEAR Normal Clear Color, Urine RFX YELLOW Normal Yellow PH,Urine RFX 6.0 units Normal 5.0-9.0 Specific [place] Ur Auto RFX 1.016 Normal 1.002-1.035 Protein, [...] /LPF Normal 0-1 Basic Metabolic Panel 05/27/2021 [facility] Cath Lab Technologist: [place] [address] [phone] Glucose 115 mg/dL High 74 - 99 [...] mL/min >60 3 Complete Blood Count 05/04/2021 [facility] Cath Lab Technologist: Dr Pelon William [place], [place] [id number] [phone] WBC 7.8 x10*3/UL 4.1 - 10.9 RBC [...] 5.6 x10*3/UL 2.0 - 7.8 A1c 05/03/2021 [facility] , Cath Lab Technologist: [place] [address] [phone] Hba1c 6.9 % High <5.7 4 Est Avg Glucose 151 mg/dL High 60 - 110 Comprehensive Chem Profile 05/03/2021 [facility], [facility] Lab Technologist: [place] [address] [phone] Glucose 173 mg/dL High 74 - 99 [...] mL/min >60 6 Laboratory test finding 05/03/2021 [facility], Cath Lab Technologist: Dr Pelon William [place], [place] [address] [phone] Thyroid Stimulating Hormone 3.14 uIU/mL 0.3 6 - 3.74 T4 Free 0.93 ng/dL 0.76 - 1.46 Laboratory test finding 05/03/2021 [facility], Cath Lab Technologist: [place] [address] [phone] PSA 0.41 ng/mL <4.00 7 Comprehensive Chem Profile 12/22/2020 [facility], Cath Lab Technologist: [place] [address] [phone] Glucose 131 mg/dL High 74 - 99 [...] 60 mL/min >60 9 Lipid Profile 12/22/2020 [facility] , Cath Lab Technologist: [place] [address] [phone] Cholesterol 154 mg/dL 131 - 200 Triglycerides 143 mg/dL 30 - 150 HDL Cholesterol 47 mg/dL 35 - 60 LDL (Calculated) 78 CALC 50 - 159 A1c 12/22/2020 [facility] Cath Lab Technologist: Dr Pelon William [place], [place] [address] [phone] Hba1c 7.0 % High <5.7 10 Est Avg Glucose 154 mg/dL High 60 - 110 Laboratory test finding 12/22/2020 [facility] Cath Lab Technologist: Dr Pelon William [place], [place] [address] [phone] Thyroid Stimulating Hormone 3.59 uIU/mL 0.3 6 - 3.74 1 Units are mL/min/1.73 m2 Chronic Kidney Disease Staging per NKF: Stage I & II GFR >=60 Normal to Mildly Decreased Stage III GFR 30-59 Moderately Decreased Stage IV GFR 15-29 Severely Decreased Stage V GFR <15 Very Little GFR Left ESRD GFR <15 on NEUROLOGY MANAGER 2 100-125 mg/dL PRE-DIABET ES/FASTING >126 mg/dL DIABETES/FASTING 3 CHRONIC KIDNEY DISEASE STAGI NG PER NKF STAGE I & II GFR >= 60 NORMAL TO MILDLY DECREASED STAGE III GFR 30-59 MODERATELY DECREASED STAGE IV GFR 15-29 SEVERELY DECREASED STAGE V GFR <15 VERY LITTLE GFR LEFT ESRD GFR <15 ON NEUROLOGY MANAGER 4 Lab Result Notes: Pre-Diabetes 5.7 - [...] LITTLE GFR LEFT ESRD GFR <15 ON NEUROLOGY MANAGER 7 This assay was performed on the Siem[employer] EXL using the B- Galactosidase/CPRG methodology and [...] LITTLE GFR LEFT ESRD GFR <15 ON NEUROLOGY MANAGER 10 Lab Result Notes: Pre-Diabetes 5.7 - 6.4 % Diabetes = or > 6.5% Procedures Date Code Description Status 05/27/2021 84343 Impacted Cerumen Irrigat/Lavage Completed 05/27/2021 73467 Office/Outpatient Established Lo w MDM 20-29 Min Completed 05/04/2021 27798 Office/Outpatient Established Mo d MDM 30-39 Min Completed 05/04/2021 09435 EKG/Interpretation & Report Comp leted 04/18/2021 [id number] Diabetic Retinal Eye Exam Comple manuel 12/27/2020 77244 Office/Outpatient Established Mo d MDM 30-39 Min Completed 10/18/2020 983599177 Diabetic Retinal Eye Exam Comple manuel 02/09/2020 835260989 Diabetic Retinal Eye Exam Comple manuel 06/30/2019 927449059 Diabetic Retinal Eye Exam Comple manuel 12/30/2018 915930695 Diabetic Retinal Eye Exam Comple manuel 08/23/2018 96355694 Colonoscopy Completed 06/10/2018 194158703 Diabetic Retinal Eye Exam Comple manuel 04/16/2017 788430889 Diabetic Retinal Eye Exam Comple manuel 04/11/2017 849897284 Diabetic Retinal Eye Exam Comple manuel 04/09/2017 813980514 Diabetic Retinal Eye Exam Comple manuel 03/23/2017 823425265 Diabetic Retinal Eye Exam Comple manuel 10/27/2014 03857426 Colonoscopy Completed Medical Devices Description No Information Available Encounters Type Date Location Provider Dx Diagnosis Office Visit 05/27/2021 3:00p [facility] MELA Cesar R42 Dizziness and giddiness I12.9 Hypertensive chronic kidney disease w stg 1-4/unsp chr kdny N18.31 Chronic kidney disease, stag e 3a H61.23 Impacted cerumen, bilateral R35.1 Nocturia R41.81 Age-related cognitive declin e Office Visit 05/04/2021 11:30a [facility] Andrew Davis M.D. E11.9 Type [...] ritis, right knee Office Visit 12/27/2020 1:30p [facility] Andrew Davis M.D. E78.5 Hyperlipidemia, [...] 05/27/2021 R42 Dizziness and giddiness Taty Carballo, ACQUISITION MANAGER 05/27/2021 I12.9 Hypertensive chronic kidney disease with stage 1 through stage 4 chronic kidney disease, or unspecified chronic kidney disease Taty Blount, [facility] 05/27/2021 N18.31 Chronic kidney disease, stage 3a Taty Blount, [facility] 05/27/2021 H61.23 Impacted cerumen, bilateral Taty Blount, [facility] 05/27/2021 R35.1 Nocturia Taty Blount, [facility] 05/27/2021 R41.81 Age-related cognitive decline An charlee Delcid Jonny, [facility] 05/04/2021 E11.9 Type 2 diabetes mellitus without [...] Lab [place] 12/27/2020 E78.5 Hyperlipidemia, unspecified Gislea Davis M.D. 12/27/2020 E11.9 Type 2 diabetes [...] 10:00 am - Andrew Davis M.D. at [facility] 06/16/2021 - Andrew Davis M.D.* [...] FOR DIZZINESS Patient Notified 06/30/20 21 [address] [place] [address] [phone]
--- OUTSIDE RECORDS SUMMARY | 2021-06-27 11:27 | CCD ---
Author Author [facility] Organization [facility] Address Unknown Phone Unavailable Care Team Providers Care Civil Rights Representative Name Role Phone LePine, M Taty SAND MILL OPERATOR FACING SAND Unavailable Unavailable LePine, M Taty SAND MILL OPERATOR FACING SAND Unavailable Unavailable LePine, M Taty SAND MILL OPERATOR FACING SAND Unavailable Unavailable LePine, M Taty SAND MILL OPERATOR FACING SAND Unavailable Unavailable LePine, M Taty SAND MILL OPERATOR FACING SAND Unavailable Unavailable LePine, M Taty SAND MILL OPERATOR FACING SAND Unavailable Unavailable LePine, M Taty SAND MILL OPERATOR FACING SAND Unavailable Unavailable LePine, M Taty SAND MILL OPERATOR FACING SAND Unavailable Unavailable LePine, M Taty SAND MILL OPERATOR FACING SAND Unavailable Unavailable LePine, M Taty SAND MILL OPERATOR FACING SAND Unavailable Unavailable LePine, M Taty SAND MILL OPERATOR FACING SAND Unavailable Unavailable LePine, M Taty SAND MILL OPERATOR FACING SAND Unavailable Unavailable LePine, M Taty SAND MILL OPERATOR FACING SAND Unavailable Unavailable LePine, M Taty SAND MILL OPERATOR FACING SAND Unavailable Unavailable LePine, M Taty SAND MILL OPERATOR FACING SAND Unavailable Unavailable LePine, M Taty SAND MILL OPERATOR FACING SAND Unavailable Unavailable LePine, M Taty SAND MILL OPERATOR FACING SAND Unavailable Unavailable LePine, M Taty SAND MILL OPERATOR FACING SAND Unavailable Unavailable LePine, M Taty SAND MILL OPERATOR FACING SAND Unavailable Unavailable LePine, M Taty SAND MILL OPERATOR FACING SAND Unavailable Unavailable LePine, M Taty SAND MILL OPERATOR FACING SAND Unavailable Unavailable LePine, M Taty SAND MILL OPERATOR FACING SAND Unavailable Unavailable LePine, M Taty SAND MILL OPERATOR FACING SAND Unavailable Unavailable LePine, M Taty SAND MILL OPERATOR FACING SAND Unavailable Unavailable LePine, M Taty SAND MILL OPERATOR FACING SAND Unavailable Unavailable LePine, M Taty SAND MILL OPERATOR FACING SAND Unavailable Unavailable LePine, M Taty SAND MILL OPERATOR FACING SAND Unavailable Unavailable LePine, M Taty SAND MILL OPERATOR FACING SAND Unavailable Unavailable LePine, M Taty SAND MILL OPERATOR FACING SAND Unavailable Unavailable LePine, M Taty SAND MILL OPERATOR FACING SAND Unavailable Unavailable LePine, M Taty SAND MILL OPERATOR FACING SAND Unavailable Unavailable LePine, M Taty SAND MILL OPERATOR FACING SAND Unavailable Unavailable LePine, M Taty SAND MILL OPERATOR FACING SAND Unavailable Unavailable LePine, M Taty SAND MILL OPERATOR FACING SAND Unavailable Unavailable LePine, M Taty SAND MILL OPERATOR FACING SAND Unavailable Unavailable LePine, M Taty SAND MILL OPERATOR FACING SAND Unavailable Unavailable LePine, M Taty SAND MILL OPERATOR FACING SAND Unavailable Unavailable LePine, M Taty SAND MILL OPERATOR FACING SAND Unavailable Unavailable LePine, M Taty SAND MILL OPERATOR FACING SAND Unavailable Unavailable LePine, M Taty SAND MILL OPERATOR FACING SAND Unavailable Unavailable LePine, M Taty SAND MILL OPERATOR FACING SAND Unavailable Unavailable LePine, M Taty SAND MILL OPERATOR FACING SAND Unavailable Unavailable LePine, M Taty SAND MILL OPERATOR FACING SAND Unavailable Unavailable LePine, M Taty SAND MILL OPERATOR FACING SAND Unavailable Unavailable LePine, M Taty SAND MILL OPERATOR FACING SAND Unavailable Unavailable LePine, M Taty SAND MILL OPERATOR FACING SAND Unavailable Unavailable LePine, M Taty SAND MILL OPERATOR FACING SAND Unavailable Unavailable LePine, M Taty SAND MILL OPERATOR FACING SAND Unavailable Unavailable LePine, M Taty SAND MILL OPERATOR FACING SAND Unavailable Unavailable LePine, M Taty SAND MILL OPERATOR FACING SAND Unavailable Unavailable LePine, M Taty SAND MILL OPERATOR FACING SAND Unavailable Unavailable LePine, M Taty SAND MILL OPERATOR FACING SAND Unavailable Unavailable LePine, M Taty SAND MILL OPERATOR FACING SAND Unavailable Unavailable LePine, M Taty SAND MILL OPERATOR FACING SAND Unavailable Unavailable LePine, M Taty SAND MILL OPERATOR FACING SAND Unavailable Unavailable LePine, M Taty SAND MILL OPERATOR FACING SAND Unavailable Unavailable Rajan Davis MD Unavailable Unavailable [...] Andrew MD Unavailable Unavailable Burgess, D Dasia FRUIT PRESS OPERATOR-C Unavailable Unavailable Burgess, D Dasia FRUIT PRESS OPERATOR-C Unavailable Unavailable Burgess, D Dasia FRUIT PRESS OPERATOR-C Unavailable Unavailable Burgess, D Dasia FRUIT PRESS OPERATOR-C Unavailable Unavailable Burgess, D Dasia FRUIT PRESS OPERATOR-C Unavailable Unavailable Burgess, D Dasia FRUIT PRESS OPERATOR-C Unavailable Unavailable Burgess, D Dasia FRUIT PRESS OPERATOR-C Unavailable Unavailable Re-disclosure Warning The records that [...] is protected by Article 27-F of the [facility] Public Health law. If you continue you may have access to information: Regarding HIV / AIDS; Provided by facilities licensed or operated by the [facility] Office of Mental Health; or Provided by the [facility] Office for People With Developmental Disabilities. If such information is present, then the following [facility] mandated warning applies: This information has been [...] law may result in a fine or fdc sentence or both. A general authorization for the release of medical or other information is NOT sufficient authorization for further disc losure. Family History Family Member Name Family Member Gender Family Member Status Date o f Status Description Data Source(s) Unknown Male Problem [facility] ([facility]) Unknown Unknown Problem [facility] ([facility] ) MATERNAL GRANDFATHER Unknown Unknown Problem [facility] ([facility] Unknown Unknown Problem [facility] ([facility]) Encounters Encounter Providers Location Date Indications Data Source(s ) Outpatient Attender: Taty Wall 05/27 03:00:00 PM EDT MED[facility] ([facility] ) Outpatient Attender: Andrew Wall 05/04 11:30:00 AM EDT MED[facility] ([facility] ) Outpatient Attender: Dasia Burgess FRUIT PRESS OPERATOR-C Main Office 02/15/2021 09:15:00 AM EDT [facility] ([facility]) Outpatient Attender: Andrew Wall 12/27 01:30:00 PM EDT MED[facility] ([facility] ) Outpatient Attender: Andrew Wall 06/23 01:30:00 PM EDT MED[facility] ([facility] ) Immunizations Vaccine Date Status Description Data Source(s) COVID-19 VACCINE Moderna 09/08/2020 12:00:00 AM EST completed [facility] Vaccine Series Complete: NOThis Data was Submitted to [facility] Via [employer]. This CVX code allows reporting of a vacc ination when formulation is unknown (for example, when recording a Influenza vaccination when noted on a vaccination card) 04/28/2020 10:37:00 AM EDT completed MEDEN T ([facility]) Medications Medication Brand Name Start Date Product Form Dose Route Admi nistrative Instructions Pharmacy Instructions Status Indications Reaction Description Data Source(s) Dutasteride 0.5 MG Oral Capsule Dutasteride 06/16/2021 12:00:00 AM EDT active MED[facility] ([facility]) 500 mg 06/14/2021 12:00:00 AM EDT tablet 20 TAKE ONE TABLET BY MOUTH TWICE A DAY TAKE ONE TABLET BY MOUTH TWICE A DAY SOLD: 06/14/2021 [facility] 0.4 mg 06/08/2021 12:00:00 AM EDT capsule [...] CAPSULES BY MOUTH EVERY DAY SOLD: 03/09/2021 [facility] Covid-19 vaccine, Unspecified 10/06/2020 12:00:00 AM EST completed [facility]) Medication administered onsite Covid-19 vaccine, Unspecified 09/08/2020 12:00:00 AM EST completed [facility]) Medication administered onsite 25 mg [...] MOUTH EVERY DAY SOLD: 09/24/2020 [facility] Insurance Providers Payer name Policy type / Coverage type Policy ID Covered republican ID Covered republican's relationship to [place] Policy [place] Plan Information POMCO [id number] SP [id number] MEDICARE [id number] SP [id number] A Medicare Natl Govt Servic Medicare Primary [id number] Self [id number] Medicare Natl Govt Servic Medicare Primary [id number] Self [id number] Medicare Natl Govt Servic Medicare Primary [id number] Self [id number] Medicare Natl Govt Servic Medicare Primary [id number] Self [id number] MEDICARE [id number] SP [id number] Medicare Natl Govt Servic Medicare Primary [id number] Self [id number] POMCO [id number] UNK2 [id number] POMCO [id number] SP [id number] Medicare [place] Medicare Primary [id number] Self [id number] Medicare [place] Medicare Primary [id number] Self [id number] Medicare [place] Medicare Primary [id number] Self [id number] Medicare [place] Medicare Primary [id number] Self [id number] Medicare [place] Medicare Primary [id number] Self [id number] Pomco (pr) Medigap Part B [id number] 528.0 [id number] Medicare [place] Medicare Primary [id number] Self [id number] [employer] (pr) Medigap Part B [id number]91.160 528.0 [id number] Medicare [place] Medicare Primary [id number] Self [id number] Pomco (pr) Medigap Part B [id number] 528.0 [id number] [employer] (pr) Medigap Part B [id number] 528.0 [id number] Medicare [place] Medicare Primary [id number] Self [id number] [employer] (pr) Medigap Part B [id number]9.991.160 528.0 [id number] Medicare [place] Medicare Primary [id number] Self [id number] [employer] (pr) Medigap Part B [id number]9.991.160 528.0 [id number] Medicare [place] Medicare Primary [id number] Self [id number] [employer] (pr) Medigap Part B [id number]9.991.160 528.0 [id number] Medicare [place] Medicare Primary [id number] Self [id number] [employer] (pr) Medigap Part B [id number]9.991.160 528.0 [id number] Medicare [place] Medicare Primary [id number] Self [id number] [employer] (pr) Medigap Part B [id number] Medicare [place] Medicare Primary [id number] Self POMCO [id number] SP [id number] UMR [facility] [id number] SP [id number] Pomco Medigap Part B [id number]646.719 98.0 Self [id number] [employer] Other 0 [id number] Self [id number] Umr (pr) Medigap Part B [id number]9.991.1 79036.0 Self [id number] Pomco Ppo Medigap Part B [id number].4595. 26752.0 Self [id number] Umr (pr) Medigap Part B [id number]9.991.1 61953.0 Self [id number] Pom[employer] Ppo Medigap Part B [id number] 2.16.840.1.129295.3.227.99.4595. 75466.0 Self [id number] Umr (pr) Medigap Part B [id number] 2.16.840.1.099154.3.227.99.991.1 09876.0 Self [id number] [employer] Ppo Medigap Part B [id number] 2.16.840.1.663919.3.227.99.4595. 40708.0 Self [id number] Pomco/Umr (Old) Medigap Part B [id number] 3.3.227.99.4595.09855.0 Self [id number] Medicare Upstate/[facility] Medicare Primary [id number] [id number] Self [id number] Umr (pr) Medigap Part B [id number] Self [id number] [employer] Medigap Part B [id number] 20.0 Self [id number] Medicare Natl Gov't Servi Medicare Primary [id number] [facility] Other 0 [id number] Self 0 Medicare Natl Gov't Servi Medicare Primary [id number] Self [id number] [employer] Medigap Part B [id number] [id number] 20.0 Self [id number] Umr [place] Ppo Medigap Part B [id number] Self [id number] Problems, Conditions, and Diagnoses No Information Surgeries/Procedures Procedure Description Date Indications Data Source(s) OFFICE OUTPATIENT VISIT 15 MINUTES 05/27/2021 12:00:00 AM EDT MEDENT ([facility]) Impacted Cerumen Irrigat/Lavage 05/27/2021 12:00:00 AM EDT MED[facility] ([facility]) ECG ROUTINE ECG W/LEAST 12 LDS W/I&R 05/04/2021 12:00: 00 AM EDT MED[facility] ([facility]) OFFICE OUTPATIENT VISIT 25 MINUTES 05/04/2021 12:00:00 AM EDT MED[facility] ([facility]) Diabetic Retinal Eye Exam 04/18/2021 12:00:00 AM EDT MED[facility] ([facility]) DESTRUCTION PREMALIGNANT LESION 1ST 02/15/2021 12:00:0 0 AM EDT MED[facility] ([facility]) DESTRUCTION PREMALIGNANT LESION 2-14 EA 02/15/2021 12: 00:00 AM EDT [facility] ([facility]) OFFICE OUTPATIENT VISIT 25 MINUTES 02/15/2021 12:00:00 AM EDT MED[facility] ([facility]) OFFICE OUTPATIENT VISIT 25 MINUTES 12/27/2020 12:00:00 AM EDT MED[facility] ([facility]) Diabetic Retinal Eye Exam 10/18/2020 12:00:00 AM EST MEDENT ([facility]) Results ID Date Data Source [id number] 06/14/2021 12:54:00 PM EDT MED[facility] ([facility]) Name Value Range Interpretation Code Description Data Denise rce(s) Supporting Document(s) Glucose, Fasting 110 mg/dL 70-100 [facility] ([facility]) Creatinine For GFR 1.05 mg/dL 0.70-1.30 [facility] ([facility]) Blood Urea Nitrogen 16 mg/dL 7-18 [facility] ([facility]) Potassium Serum 4.3 meq/L 3.5-5.1 MED[facility] ([facility]) Glomerular Filtration Rate [facility] <content>Units are mL/min/1.73 m2</content>
<content></content>
<content>Chronic Kidney Disease Staging per NKF:</content>
<content></content>
<content>Stage I & II GFR >=60 Normal to Mildly Decreased</content>
<content>Stage III GFR 30-59 Moderately Decreased</content>
<content>Stage IV GFR 15-29 Severely Decreased</content>
<content>Stage V GFR <15 Very Little GFR Left</content>
<content>ESRD GFR <15 on SUPPLY CHAIN GENERALIST</content>
<content></content> Sodium Level 139 meq/L 136-145 MED[facility] ([facility]) Chloride Level 107 meq/L 98-107 [facility] ([facility]) Carbon Dioxide Level 27 meq/L 21-32 [facility] ([facility]) Calcium Level 9.3 mg/dL 8.8-10.2 [facility] ([facility]) Anion Gap 5 meq/L 8-16 [facility] Ast/Sgot 13 U/L 7-37 [facility] Alt/SGPT 21 U/L 12-78 [facility] Alkaline Phosphatase 59 U/L 45-117 [facility] ([facility]) Total Protein 7.6 GM/DL 6.4-8.2 [facility] ([facility]) Bilirubin,Total 1.0 mg/dL 0.2-1.0 [facility] ([facility]) Albumin/Globulin Ratio 1.0 [facility] ([facility]) Albumin 3.8 GM/DL 3.2-5.2 [facility] ID Date Data Source [id number] 06/14/2021 12:54:00 PM EDT MED[facility] ([facility]) Name Value Range Interpretation Code Description Data Denise rce(s) Supporting Document(s) White Blood Count 6.6 10 4.0-10.0 [facility] ([facility]) Hemoglobin 16.0 g/dL 13.5-17.5 MED[facility] ([facility]) Red Blood Count 5.24 10 4.30-6.10 [facility] ([facility]) Hematocrit 47.1 % 42.0-52.0 [facility] Mean Corpuscular Volume 89.9 fl 80.0-96.0 [facility] ([facility]) Red Cell Distribution Width 13.2 % 11.5-14.5 [facility] ([facility]) Mean Corpuscular Hemoglobin 30.5 pg 27.0-33.0 ME DENT ([facility]) Mean Corpuscular HGB Conc 34.0 g/dL 32.0-36.5 MEDE NT ([facility]) Platelet Count, Automated 180 10 150-450 MEDE NT ([facility]) Neutrophils % 57.3 % 36.0-66.0 [facility] ([facility]) [place] % 9.4 % 2.0-8.0 [facility] Lymph % 29.5 % 24.0-44.0 [facility]) Eos % 2.4 % 0.0-3.0 [facility]) Baso % 0.8 % 0.0-1.0 [facility]) Immature Granulocyte % 0.6 % 0-3.0 [facility] ([facility]) Nucleated Red Blood Cell % 0.0 % 0-0 MED ENT ([facility]) Neutrophils # 3.8 10 1.5-8.5 [facility] ([facility]) Eos # 0.2 10 0.0-0.5 [facility] [place] [facility] Lymph # 2.0 10 1.5-5.0 [facility] [place] # 0.6 10 0.0-0.8 [facility] Baso # 0.1 10 0.0-0.2 [facility] ID Date Data Source [id number] 06/14/2021 11:38:00 AM EDT MED[facility] ([facility]) Name Value Range Interpretation Code Description Data Denise rce(s) Supporting Document(s) Appearance, Urine RFX Laboratory test result [facility] ([facility]) PH,Urine RFX 6.0 units 5.0-9.0 [facility] ([facility]) Color, Urine RFX Laboratory test result [facility] ([facility]) Glucose, Urine (Ua) Auto RFX Laboratory test result [facility] Specific [place] Ur Auto RFX 1.016 1.002-1.035 [facility] Protein, Urine Auto RFX Laboratory test result [facility] ([facility]) Ketone, Urine Auto RFX Laboratory test result [facility] Urobilinogen, Urine Auto RFX 2.0 mg/dL 0.0-2.0 [facility] Bilirubin, Urine Auto RFX Laboratory test result [facility] Leukocyte Esterase Ur Auto RFX Laboratory test result [facility] Nitrite, Urine Auto RFX Laboratory test result [facility] Blood, Urine Blood RFX Laboratory test result [facility] WBC, Urine Auto RFX 4 /HPF 0-3 [facility] ([facility]) RBC, Urine Auto RFX 1 /HPF 0-3 [facility] Squam Epithelial Cell Ur Aurfx 0 /HPF 0-6 [facility] Bacteria, Urine Auto RFX Laboratory test result [facility] Mucus, Urine RFX Laboratory test result [facility] Hyaline Cast, Urine Auto RFX 0 /LPF 0-1 M [facility]ENT ([facility] ID Date Data Source [id number] 05/27/2021 03:07:00 PM EDT [facility] Name Value Range Interpretation Code Description Data Denise rce(s) Supporting Document(s) Glucose [Mass/volume] in Serum or Plasma 115 mg/dL 74-99 [facility] ([facility]) 100-125 mg/dL PRE-DIABETES/FASTING >126 mg/dL DIABETES/FASTING Urea nitrogen [Mass/volume] in Serum or Plasma 22 mg/dL 7-18 [facility] ([facility]) Potassium [Moles/volume] in Serum or Plasma 3.7 meq/L 3.5-5.1 [facility] ([facility]) Creatinine 1.2 mg/dL 0.6-1.3 [facility] Sodium [Moles/volume] in Serum or Plasma 140 meq/L 136-145 [facility] Chloride [Moles/volume] in Serum or Plasma 105 meq/L 98-107 [facility] Carbon dioxide, total [Moles/volume] in Serum or Plasma 31 meq/L 21 -32 [facility] Calcium [Mass/volume] in Serum or Plasma 10.0 mg/dL 8.5-10.1 [facility] Glomerular filtration rate/1.73 sq M pre dicted among blacks [Volume Rate/Area] in Serum or Plasma by Creatinine-based formula (MDRD) Laboratory test result [facility] ([facility]) <content>CHRONIC KIDNEY DISEASE STAGING PER NKF</content>
<content></content>
<content>STAGE I & II GFR >= 60 NORMAL TO MILDLY DECREASED</content>
<content>STAGE III GFR 30-59 MODERATELY DECREASED</content>
<content>STAGE IV GFR 15-29 SEVERELY DECREASED</content>
<content>STAGE V GFR <15 VERY LITTLE GFR LEFT</content>
<content>ESRD GFR <15 ON SUPPLY CHAIN GENERALIST</content>
<content></content> Glomerular filtration rate/1.73 sq M pre dicted among non-blacks [Volume Rate/Area] in Serum or Plasma by Creatinine-based formula (MDRD) 58 mL/min [facility] ([facility]) ID Date Data Source [id number] 05/04/2021 12:54:00 PM EDT [facility] Name Value Range Interpretation Code Description Data Denise rce(s) Supporting Document(s) Leukocytes [#/volume] in Blood by Automated count 7.8 x10*3/UL 4.1-10 .9 [facility] Erythrocytes [#/volume] in Blood by Automated count 5.42 x10*6/UL 4.2 0-6.30 [facility] Hematocrit [Volume Fraction] of Blood by Automated count 48.1 % 3 7.0-51.0 [facility] ([facility]) Hemoglobin [Mass/volume] in Blood 16.5 g/dL 12.0-18.0 [facility] ([facility] MCV 88.8 fL 80.0-97.0 [facility] ([facility]) MCHC 34.2 g/dL 31.0-38.0 [facility] ([facility]) MCH 30.4 pg 26.0-32.0 [facility] ([facility]) Erythrocyte distribution width [Ratio] by Automated count 13.4 % 11.6-13.7 [facility] MPV 8.4 FL 7.8-11.0 [facility] ([facility]) Platelets [#/volume] in Blood by Automated count 191 x10*3/UL 140-440 [facility] Lymph % 22.4 % 10.0-58.5 [facility] ([facility]) Mid % 5.8 % 1.7-9.3 [facility] ([facility]) Neut % 71.8 % 37.0-92.0 [facility] ([facility]) Mid # 0.5 x10*3/UL 0.1-0.6 [facility] ([facility]) Neut # 5.6 x10*3/UL 2.0-7.8 [facility] [place] Lymph # 1.7 x10*3/UL 0.6-4.1 [facility] [place] ID Date Data Source [id number] 05/03/2021 08:09:00 AM EDT [facility] ([facility] [place] Name Value Range Interpretation Code Description Data Denise rce(s) Supporting Document(s) Prostate specific Ag [Mass/volume] in Serum or Plasma 0.41 ng/mL [facility] ([facility]) This assay was performed on the [employer] Dimension EXL using the B- Galactosidase/CPRG methodology and should not be compared interchangeably with other methods. The PSA should not be used alone as a screening test for the presence or absence of malignant disease. ID Date Data Source [id number] 05/03/2021 08:09:00 AM EDT [facility]) Name Value Range Interpretation Code Description Data Denise rce(s) Supporting Document(s) Thyrotropin [Units/volume] in Serum or Plasma by Detec tion limit <= 0.05 mIU/L 3.14 uIU/mL 0.36-3.74 [facility] ([facility] [place] [facility] Thyroxine (T4) free [Mass/volume] in Serum or Plasma 0.93 ng/dL 0.76- 1.46 [facility] ([facility]) ID Date Data Source [id number] 05/03/2021 08:09:00 AM EDT [facility]) Name Value Range Interpretation Code Description Data Denise rce(s) Supporting Document(s) Glucose [Mass/volume] in Serum or Plasma 173 mg/dL 74-99 [facility] ([facility]) 100-125 mg/dL PRE-DIABETES/FASTING >126 mg/dL DIABETES/FASTING Urea nitrogen [Mass/volume] in Serum or Plasma 21 mg/dL 7-18 [facility] ([facility]) Creatinine 1.2 mg/dL 0.6-1.3 [facility] Sodium [Moles/volume] in Serum or Plasma 141 meq/L 136-145 [facility] ([facility]) Potassium [Moles/volume] in Serum or Plasma 3.7 meq/L 3.5-5.1 [facility] ([facility]) Chloride [Moles/volume] in Serum or Plasma 103 meq/L 98-107 [facility] ([facility]) Carbon dioxide, total [Moles/volume] in Serum or Plasma 29 meq/L 21 -32 [facility] ([facility] [place] Alkaline phosphatase isoenzyme [Units/volume] in Serum or Pl asma 58 mg/dL 46-116 [facility] ([facility]) Calcium [Mass/volume] in Serum or Plasma 9.2 mg/dL 8.5-10.1 [facility] ([facility]) Aspartate aminotransferase [Enzymatic activity/volume] in Serum or Plasma 13 U/L 15-37 [facility] ([facility] ) Total Bilirubin 1.2 mg/dL 0.2-1.0 [facility] ([facility]) Alanine aminotransferase [Enzymatic activity/volume] in Seru m or Plasma 27 U/L 12-78 [facility] ([facility]) Albumin [Mass/volume] in Serum or Plasma 3.9 g/dL 3.4-5.0 [facility] ([facility]) Proteinase 3 Ab [Units/volume] in Serum 7.4 g/dL 6.4-8.2 [facility] ([facility] [place] Glomerular filtration rate/1.73 sq M pre dicted among non-blacks [Volume Rate/Area] in Serum or Plasma by Creatinine-based formula (MDRD) 58 mL/min [facility] ([facility] [place] A/G Ratio 1.11 CALC 1.00-1.90 [facility] ([facility]) Glomerular filtration rate/1.73 sq M pre dicted among blacks [Volume Rate/Area] in Serum or Plasma by Creatinine-based formula (MDRD) Laboratory test result [facility] ([facility] [place]) <content>CHRONIC KIDNEY DISEASE STAGING PER NKF</content>
<content></content>
<content>STAGE I & II GFR >= 60 NORMAL TO MILDLY DECREASED</content>
<content>STAGE III GFR 30-59 MODERATELY DECREASED</content>
<content>STAGE IV GFR 15-29 SEVERELY DECREASED</content>
<content>STAGE V GFR <15 VERY LITTLE GFR LEFT</content>
<content>ESRD GFR <15 ON SUPPLY CHAIN GENERALIST</content>
<content></content> ID Date Data Source [id number] 05/03/2021 08:09:00 AM EDT [facility] ([facility]) Name Value Range Interpretation Code Description Data Denise rce(s) Supporting Document(s) Glucose mean value [Mass/volume] in Blood Estimated fr om glycated hemoglobin 151 mg/dL 60-110 [facility] ([facility] [place] [facility] Hemoglobin A1c/Hemoglobin.total in Blood 6.9 % [facility] ([facility] [place] Lab Result Notes: Pre-Diabetes 5.7 - 6.4 % Diabetes = or > 6.5% ID Date Data Source [id number] 12/22/2020 07:44:00 AM EDT [facility] ([facility]) Name Value Range Interpretation Code Description Data Denise rce(s) Supporting Document(s) Glucose [Mass/volume] in Serum or Plasma 131 mg/dL 74-99 [facility] ([facility]) 100-125 mg/dL PRE-DIABETES/FASTING >126 mg/dL DIABETES/FASTING Urea nitrogen [Mass/volume] in Serum or Plasma 24 mg/dL 7-18 [facility] ([facility]) Creatinine 1.1 mg/dL 0.6-1.3 [facility] Sodium [Moles/volume] in Serum or Plasma 140 meq/L 136-145 [facility] ([facility]) Potassium [Moles/volume] in Serum or Plasma 3.8 meq/L 3.5-5.1 [facility] ([facility]) Chloride [Moles/volume] in Serum or Plasma 103 meq/L 98-107 [facility] ([facility]) Calcium [Mass/volume] in Serum or Plasma 9.2 mg/dL 8.5-10.1 [facility] ([facility]) Carbon dioxide, total [Moles/volume] in Serum or Plasma 28 meq/L 21 -32 [facility] ([facility]) Aspartate aminotransferase [Enzymatic activity/volume] in Serum or Plasma 16 U/L 15-37 [facility] ([facility] ) Alkaline phosphatase isoenzyme [Units/volume] in Serum or Pl asma 55 mg/dL 46-116 [facility] ([facility]) Total Bilirubin 1.2 mg/dL 0.2-1.0 [facility] ([facility]) Alanine aminotransferase [Enzymatic activity/volume] in Seru m or Plasma 28 U/L 12-78 [facility] ([facility]) Albumin [Mass/volume] in Serum or Plasma 4.4 g/dL 3.4-5.0 [facility] ([facility]) A/G Ratio 1.26 CALC 1.00-1.90 [facility] ([facility]) Proteinase 3 Ab [Units/volume] in Serum 7.9 g/dL 6.4-8.2 [facility] ([facility]) Glomerular filtration rate/1.73 sq M pre dicted among blacks [Volume Rate/Area] in Serum or Plasma by Creatinine-based formula (MDRD) Laboratory test result [facility] ([facility]) <content>CHRONIC KIDNEY DISEASE STAGING PER NKF</content>
<content></content>
<content>STAGE I & II GFR >= 60 NORMAL TO MILDLY DECREASED</content>
<content>STAGE III GFR 30-59 MODERATELY DECREASED</content>
<content>STAGE IV GFR 15-29 SEVERELY DECREASED</content>
<content>STAGE V GFR <15 VERY LITTLE GFR LEFT</content>
<content>ESRD GFR <15 ON SUPPLY CHAIN GENERALIST</content>
<content></content> Glomerular filtration rate/1.73 sq M pre dicted among non-blacks [Volume Rate/Area] in Serum or Plasma by Creatinine-based formula (MDRD) Laboratory test result [facility] ID Date Data Source [id number] 12/22/2020 07:44:00 AM EDT [facility] ([facility]) Name Value Range Interpretation Code Description Data Denise rce(s) Supporting Document(s) Hemoglobin A1c/Hemoglobin.total in Blood Laboratory test result [facility] ([facility]) Thyrotropin [Units/volume] in Serum or Plasma by Detec tion limit <= 0.05 mIU/L Laboratory test result [facility] ([facility]) ID Date Data Source [id number] 12/22/2020 07:44:00 AM EDT [facility]) Name Value Range Interpretation Code Description Data Denise rce(s) Supporting Document(s) Thyrotropin [Units/volume] in Serum or Plasma by Detec tion limit <= 0.05 mIU/L 3.59 uIU/mL 0.36-3.74 [facility] [place] [facility] ID Date Data Source [id number] 12/22/2020 07:44:00 AM EDT [facility] [place] Name Value Range Interpretation Code Description Data Denise rce(s) Supporting Document(s) Hemoglobin A1c/Hemoglobin.total in Blood 7.0 % [facility] ([facility]) Lab Result Notes: Pre-Diabetes 5.7 - 6.4 % Diabetes = or > 6.5% Glucose mean value [Mass/volume] in Blood Estimated fr om glycated hemoglobin 154 mg/dL 60-110 [facility] ([facility] ) ID Date Data Source [id number] 12/22/2020 07:44:00 AM EDT [facility] ([facility]) Name Value Range Interpretation Code Description Data Denise rce(s) Supporting Document(s) Cholesterol [Mass/volume] in Serum or Plasma 154 mg/dL 131-200 [facility] ([facility]) Cholesterol in HDL [Mass/volume] in Serum or Plasma 47 mg/dL 35-60 [facility] ([facility]) Triglyceride [Mass/volume] in Serum or Plasma 143 mg/dL 30-150 [facility] ([facility]) Cholesterol in LDL [Mass/volume] in Serum or Plasma by calcu lation 78 CALC 50-159 [facility] ([facility] [place] ID Date Data Source [id number] 06/16/2020 10:29:00 AM EDT [facility] ([facility] [place] Name Value Range Interpretation Code Description Data Denise rce(s) Supporting Document(s) Urine Creatinine 103.3 mg/dL 30.0-125.0 [facility] ([facility]) Microalbumin Urine 23.5 mg/L 1.3-20.0 [facility] ([facility]) Microalb/Creat Ratio 22.7 ug/mg 0.0-30.0 [facility] ( [facility]) ID Date Data Source [id number] 06/16/2020 10:29:00 AM EDT [facility] ([facility]) Name Value Range Interpretation Code Description Data Denise rce(s) Supporting Document(s) Thyrotropin [Units/volume] in Serum or Plasma by Detec tion limit <= 0.05 mIU/L 2.78 uIU/mL 0.36-3.74 [facility] ([facility] ) ID Date Data Source [id number] 06/16/2020 10:29:00 AM EDT [facility] ([facility]) Name Value Range Interpretation Code Description Data Denise rce(s) Supporting Document(s) Cholesterol [Mass/volume] in Serum or Plasma 161 mg/dL 131-200 [facility] ([facility]) Triglyceride [Mass/volume] in Serum or Plasma 171 mg/dL 30-150 [facility] ([facility]) Cholesterol in HDL [Mass/volume] in Serum or Plasma 41 mg/dL 35-60 [facility] ([facility]) Cholesterol in LDL [Mass/volume] in Serum or Plasma by calcu lation 86 CALC 50-159 [facility] ([facility]) ID Date Data Source [id number] 06/16/2020 10:29:00 AM EDT [facility] ([facility]) Name Value Range Interpretation Code Description Data Denise rce(s) Supporting Document(s) Glucose [Mass/volume] in Serum or Plasma 124 mg/dL 74-99 [facility] ([facility]) 100-125 mg/dL PRE-DIABETES/FASTING >126 mg/dL DIABETES/FASTING Urea nitrogen [Mass/volume] in Serum or Plasma 22 mg/dL 7-18 [facility] ([facility]) Creatinine 1.2 mg/dL 0.6-1.3 [facility] ([facility]) Sodium [Moles/volume] in Serum or Plasma 140 meq/L 136-145 [facility] ([facility]) Potassium [Moles/volume] in Serum or Plasma 4.1 meq/L 3.5-5.1 [facility] ([facility]) Chloride [Moles/volume] in Serum or Plasma 102 meq/L 98-107 [facility] ([facility]) Carbon dioxide, total [Moles/volume] in Serum or Plasma 29 meq/L 21 -32 [facility] ([facility]) Calcium [Mass/volume] in Serum or Plasma 9.6 mg/dL 8.5-10.1 [facility] ([facility]) Total Bilirubin 1.0 mg/dL 0.2-1.0 [facility] ([facility]) Alkaline phosphatase isoenzyme [Units/volume] in Serum or Pl asma 50 mg/dL 46-116 [facility] ([facility]) Alanine aminotransferase [Enzymatic activity/volume] in Seru m or Plasma 27 U/L 12-78 [facility] ([facility]) Aspartate aminotransferase [Enzymatic activity/volume] in Serum or Plasma 16 U/L 15-37 [facility] ([facility] ) Proteinase 3 Ab [Units/volume] in Serum 7.5 g/dL 6.4-8.2 [facility] ([facility] [place] A/G Ratio 1.27 CALC 1.00-1.90 [facility]) Glomerular filtration rate/1.73 sq M pre dicted among non-blacks [Volume Rate/Area] in Serum or Plasma by Creatinine-based formula (MDRD) 58 mL/min [facility] ([facility] [place] Albumin [Mass/volume] in Serum or Plasma 4.2 g/dL 3.4-5.0 [facility] ([facility] [place] Glomerular filtration rate/1.73 sq M pre dicted among blacks [Volume Rate/Area] in Serum or Plasma by Creatinine-based formula (MDRD) Laboratory test result [facility] ([facility]) <content>CHRONIC KIDNEY DISEASE STAGING PER NKF</content>
<content></content>
<content>STAGE I & II GFR >= 60 NORMAL TO MILDLY DECREASED</content>
<content>STAGE III GFR 30-59 MODERATELY DECREASED</content>
<content>STAGE IV GFR 15-29 SEVERELY DECREASED</content>
<content>STAGE V GFR <15 VERY LITTLE GFR LEFT</content>
<content>ESRD GFR <15 ON SUPPLY CHAIN GENERALIST</content>
<content></content> ID Date Data Source [id number] 06/16/2020 10:29:00 AM EDT [facility] ([facility] [place] Name Value Range Interpretation Code Description Data Denise rce(s) Supporting Document(s) Glucose mean value [Mass/volume] in Blood Estimated fr om glycated hemoglobin 143 mg/dL 60-110 [facility] ([facility] [place] [facility] Hemoglobin A1c/Hemoglobin.total in Blood 6.6 % [facility] ([facility] [place] Lab Result Notes: Pre-Diabetes 5.7 - 6.4 % Diabetes = or > 6.5% Procedure Social History Code Duration Value Status Description Data Source(s ) Smoking 03/18/2021 02:04:58 PM EDT Never smoked tobacco (findi ng) completed Never smoked tobacco (finding) [place] (Aung Cevallos MD [facility]) Vital Signs ID Date Data Source UNK Name Value Range Interpretation Code Description Data Source(s) Body height 65 [in_i] 65 [in_i] [facility] ([facility]) 5'5" Body weight 190.00 [lb_av] 190.00 [lb_av] [facility] T ([facility]) Systolic blood pressure 134 mm[Hg] 134 mm[Hg] [facility] ([facility]) Diastolic blood pressure 80 mm[Hg] 80 mm[Hg] [facility]) Heart rate 76 /min 76 /min [facility] ([facility]) Body mass index (BMI) [Ratio] 31.6 kg/m2 31.6 k g/m2 [facility] ([facility]) Systolic blood pressure--sitting 140 mm[Hg] 140 mm[Hg] [facility] ([facility]) Diastolic blood pressure--sitting 70 mm[Hg] 70 mm[Hg] [facility] ([facility]) Systolic blood pressure--standing 120 mm[Hg] 12 0 mm[Hg] [facility] ([facility]) Diastolic blood pressure--standing 70 mm[Hg] 7 0 mm[Hg] [facility] ([facility]) Diastolic blood pressure--supine 72 mm[Hg] 72 mm[Hg] [facility] ([facility]) Heart rate 94 /min 94 /min [facility] ([facility]) Body height 65 [in_i] 65 [in_i] [facility] ([facility]) 5'5" Body mass index (BMI) [Ratio] 30.9 kg/m2 30.9 k g/m2 [facility] ([facility]) Systolic blood pressure 120 mm[Hg] 120 mm[Hg] [facility] Diastolic blood pressure 80 mm[Hg] 80 mm[Hg] [facility] ([facility]) Systolic blood pressure--supine 130 mm[Hg] 130 mm[Hg] [facility] ([facility]) Body weight 186.00 [lb_av] 186.00 [lb_av] [facility] T ([facility]) Oxygen saturation in Arterial blood by Pulse oximetry 95 % 95 % [facility] ([facility]) Systolic blood pressure 110 mm[Hg] 110 mm[Hg] [facility] Diastolic blood pressure 70 mm[Hg] 70 mm[Hg] [facility] ([facility]) Body height 65 [in_i] 65 [in_i] [facility] ([facility]) 5'5" Body weight 183.00 [lb_av] 183.00 [lb_av] [facility] T ([facility]) Oxygen saturation in Arterial blood by Pulse oximetry 96 % 96 % [facility] ([facility]) Heart rate 84 /min 84 /min [facility] ([facility]) Body mass index (BMI) [Ratio] 30.4 kg/m2 30.4 k g/m2 [facility] ([facility]) Systolic blood pressure 132 mm[Hg] 132 mm[Hg] [facility] ([facility]) Diastolic blood pressure 80 mm[Hg] 80 mm[Hg] [facility] ([facility]) Body weight 180.00 [lb_av] 180.00 [lb_av] [facility] T ([facility]) Respiratory rate 18 /min 18 /min [facility] ( [facility]) Oxygen saturation in Arterial blood by Pulse oximetry 93 % 93 % [facility] ([facility]) RM Air Systolic blood pressure 100 mm[Hg] 100 mm[Hg] [facility] ([facility]) Diastolic blood pressure 55 mm[Hg] 55 mm[Hg] [facility] ([facility]) Heart rate 101 /min 101 /min [facility] ([facility]) Body height 65 [in_i] 65 [in_i] [facility] ([facility]) 5'5" Body weight 189.38 [lb_av] 189.38 [lb_av] [facility] T ([facility]) Body mass index (BMI) [Ratio] 31.5 kg/m2 31.5 k g/m2 [facility] ([facility]) Systolic blood pressure 132 mm[Hg] 132 mm[Hg] [facility] Diastolic blood pressure 68 mm[Hg] 68 mm[Hg] [facility] ([facility]) Body weight 185.00 [lb_av] 185.00 [lb_av] CHRISTIANO T ([facility]) Body temperature 97.2 [degF] 97.2 [degF] [facility] ([facility]) Systolic blood pressure 138 mm[Hg] 138 mm[Hg] M EDSABINO ([facility]) Diastolic blood pressure 80 mm[Hg] 80 mm[Hg] ANN-MARIE ([facility]) Heart rate 78 /min 78 /min ANN-MARIE ([facility]) Body height 65 [in_i] 65 [in_i] [facility] ([facility]) 5'5" Body weight 189.00 [lb_av] 189.00 [lb_av] [facility]STIAN[facility] T ([facility]) Body mass index (BMI) [Ratio] 31.4 kg/m2 31.4 k g/m2 [facility] ([facility])
[2021-06-27] MEDS ORDERED: ANUS2.5C2 TOP (17:39)
[2021-06-27 17:50] VITALS: BP 141/86
== END 2021-06-27 17:55 | disposition home or self-care (01) ==
LOC: M ED 11:17
DX: K64.4 Residual hemorrhoidal skin tags (principal); K62.89 Other specified diseases of anus and rectum; R33.9 Retention of urine, unspecified; N20.0 Calculus of kidney; N28.1 Cyst of kidney, acquired; N32.89 Other specified disorders of bladder; Z79.82 Long term (current) use of aspirin; Z79.899 Other long term (current) drug therapy

== ENCOUNTER → 2021-06-27 | Outpatient (CLI) | payer MEDICARE, OTHER ==
[~2021-06-27] MED LIST changes: +ANUS2.5C2 TOP; +CIPR-249 PO
--- NOTE | 2021-06-27 12:05 | REP ---
INDICATION: URINARY RETENTION. COMPARISON: No prior renal ultrasound examinations for comparison. Prior noncontrast enhanced CT of 06/14/2021 reviewed. TECHNIQUE: Real-time sonographic evaluation of the kidneys with Doppler FINDINGS: Multiple ultrasonographic images of the right kidney show the right kidney to measure 11.4 x 5.2 x 5.8 cm... In the inferior interpolar region there is a subtle area of mixed echoes and possible renal cortical expansion. There is good corticomedullary differentiation. There is no hydronephrosis. There are no perinephric fluid collections. There is an echogenic focus in the inferior pole consistent with a known nephrolith. Multiple ultrasonographic images of the left kidney show the left kidney to measure 12.8 x 5.5 x 5.4 cm. The renal cortical echotexture is unremarkable. There are no masses. There is good corticomedullary differentiation. There is no hydronephrosis. There are no perinephric fluid collections. There is an echogenic focus seen in the inferior pole consistent with a known nephrolith. There is also a tiny anechoic structure seen in the lower pole. IMPRESSION: 1. Cortical fullness and mixed echo seen in the right kidney not appreciated on the noncontrast enhanced CT. Pre and post contrast enhanced renal CT is recommended for complete evaluation. 2. Bilateral nonobstructing nephroliths. 3. Tiny simple left renal cyst <Electronically signed by Shravan Noel > 06/27/21 [id number]
--- NOTE | 2021-06-27 13:02 | REP ---
INDICATION: URINARY RETENTION. COMPARISON: CT 06/14/2021. TECHNIQUE: Real-time sonographic evaluation of urinary bladder. FINDINGS: Bladder measures 12.7 x 9.6 x 7.9 cm, total volume 780 cc. Postvoid residual is 481 cc, 62% of the original volume. There is mild diffuse bladder wall thickening with no evidence of mass or intraluminal calculus. IMPRESSION: Mild diffuse bladder wall thickening without evidence of mass. Postvoid residual 62%. <Electronically signed by Rich Cam > 06/27/21 [id number]
== END ==
LOC: M RAD 10:16
PROVIDERS: ATTEND Family Medicine
DX: R33.9 Retention of urine, unspecified (principal); N20.0 Calculus of kidney; N28.1 Cyst of kidney, acquired; N32.89 Other specified disorders of bladder

== ENCOUNTER → 2022-05-26 | Outpatient (CLI) | payer MEDICARE, OTHER ==
[~2022-05-26] MED LIST changes: +ANUS2.5C2 TOP; +LOSA25TA13 PO; -LOSA25TA14 PO
== END ==
LOC: M PLAIMG 11:43
PROVIDERS: ATTEND Psychiatry & Neurology Neurology
DX: S40.022A Contusion of left upper arm, initial encounter (principal); M19.012 Primary osteoarthritis, left shoulder; X58.XXXA Exposure to other specified factors, initial encounter; Y92.9 Unspecified place or not applicable; Y93.9 Activity, unspecified; Y99.9 Unspecified external cause status

== ENCOUNTER → 2022-11-13 | Outpatient (CLI) | payer MEDICARE, OTHER | LOC: M WUC 13:12 | PROVIDERS: ATTEND Family Medicine | DX: R05.9 Cough, unspecified (principal); R91.8 Other nonspecific abnormal finding of lung field ==

== ENCOUNTER 2022-12-31 11:51 | Emergency (ER) | payer MEDICARE, OTHER ==
[~2022-12-31] VITALS: Ht 165.1 cm; Wt 81.8 kg
[2022-12-31 12:40] LABS: BASO # 0.1 10^3/uL (0.0-0.2); BASO % 0.6 % (0.0-1.0); EOS # 0.2 10^3/uL (0.0-0.5); EOS % 1.8 % (0.0-3.0); HEMATOCRIT 48.7 % (42.0-52.0); HEMOGLOBIN 16.4 g/dl (13.5-17.5); LYMPH # 3.2 10^3/uL (1.5-5.0); LYMPH % 34.3 % (24.0-44.0); MEAN CORPUSCULAR HEMOGLOBIN 31.1 pg (27.0-33.0); MEAN CORPUSCULAR HGB CONC 33.7 g/dl (32.0-36.5); MEAN CORPUSCULAR VOLUME 92.2 fl (80.0-96.0); MONO # 0.8 10^3/uL (0.0-0.8); MONO % 8.3 % (2.0-8.0); NEUTROPHILS # 5.1 10^3/uL (1.5-8.5); NEUTROPHILS % 54.7 % (36.0-66.0); PLATELET COUNT, AUTOMATED 148 10^3/uL (150-450); RED BLOOD COUNT 5.28 10^6/uL (4.30-6.10); WHITE BLOOD COUNT 9.3 10^3/uL (4.0-10.0)
[2022-12-31 12:55] LABS: CK-MB VALUE MASS < 1.0 NG/ML (<3.6); ETHYL ALCOHOL (ETHANOL) < 0.003 % (0.000-0.010)
[2022-12-31 12:57] LABS: BLOOD UREA NITROGEN 22 MG/DL (9-23); CALCIUM LEVEL 9.3 MG/DL (8.3-10.6); CARBON DIOXIDE LEVEL 27 MMOL/L (20-31); CHLORIDE LEVEL 108 MMOL/L (98-107); CREATININE FOR GFR 0.99 MG/DL (0.70-1.30); GLOMERULAR FILTRATION RATE > 60.0 (>35); GLUCOSE, FASTING 131 MG/DL (74-106); POTASSIUM SERUM 4.3 MMOL/L (3.5-5.1); SODIUM LEVEL 142 MMOL/L (136-145)
[2022-12-31 13:04] LABS: CPK CREATINE PHOSPHOKINASE 60 U/L (46-171); MB/CK RELATIVE INDEX 1.66 (< OR =4)
[2022-12-31 13:06] LABS: INR 0.92; PROTHROMBIN TIME 12.6 SECONDS (12.5-14.5)
[2022-12-31 13:13] LABS: RSV AMPLIFICATION NEGATIVE (NEGATIVE)
[2022-12-31] MEDS ORDERED: KETOROLAC 30 MG/ML 1ML VIAL IV ONE (14:35)
[2022-12-31] MEDS ORDERED: BOOSTRIX VACCINE (TETANUS/DIPHTH/ACEL. PERTUSSIS) 0.5ML SYR IM.IMMUN ONE (14:35)
[2022-12-31 15:27] VITALS: BP 182/87
[2022-12-31 15:30] LABS: AMPHETAMINES LEVEL URINE NEGATIVE (NEGATIVE); BARBITURATES URINE NEGATIVE (NEGATIVE); BENZODIAZEPINES URINE NEGATIVE (NEGATIVE); CANNABINOIDS URINE NEGATIVE (NEGATIVE); COCAINE METABOLITE URINE NEGATIVE (NEGATIVE); METHADONE URINE NEGATIVE (NEGATIVE); OPIATES URINE NEGATIVE (NEGATIVE); PHENCYCLIDINE URINE NEGATIVE (NEGATIVE)
== END 2022-12-31 15:33 | disposition short-term general hospital (02) ==
LOC: M ED 11:51
DX: S02.32XA Fracture of orbital floor, left side, initial encounter for closed fracture (principal); W01.198A Fall on same level from slipping, tripping and stumbling with subsequent striking against other object, initial encounter; Y92.009 Unspecified place in unspecified non-institutional (private) residence as the place of occurrence of the external cause; M43.12 Spondylolisthesis, cervical region; K21.9 Gastro-esophageal reflux disease without esophagitis; E78.5 Hyperlipidemia, unspecified; I10 Essential (primary) hypertension; N40.0 Benign prostatic hyperplasia without lower urinary tract symptoms; Z79.82 Long term (current) use of aspirin; Z79.899 Other long term (current) drug therapy
CPT/HCPCS: 70450; 70486; 71045; 72125; 80048; 80307; 82077; 82550; 82553; 84443; 84484; 85025; 85610; 85730; 87631; 90471; 90715; 93005; 93041; 94760; 96374; 99285; J1885

== ENCOUNTER → 2023-05-18 | Outpatient (CLI) | payer MEDICARE, OTHER | LOC: M CARPUL 10:30 | PROVIDERS: ATTEND Family Medicine | DX: R01.1 Cardiac murmur, unspecified (principal); I35.8 Other nonrheumatic aortic valve disorders; I35.1 Nonrheumatic aortic (valve) insufficiency ==